=== PATIENT | male | born 1950 | race Caucasian/White ===

== ENCOUNTER 2016-11-10 08:44 | Outpatient (CLI) | payer MEDICARE, MEDICAID ==
[2016-11-10 10:11] LABS: #Eosinphils 0.3 thou/uL (0.0-0.7); #Lymphocytes 0.7 thou/uL (1.20-3.40); #Monocytes 0.4 thou/uL (0.11-0.59); #Neutrophils 2.7 thou/uL (1.40-6.50); %Basophils 0.6 % (0.0-1.0); %Eosinophils 6.3 % (0.0-10.0); %Lymphocytes 17.1 % (21.0-51.0); %Monocytes 9.6 % (0.0-10.0); Hematocrit 37.8 % (42.0-52.0); Mean Platelet Volume 7.1 fL (7.4-10.4); Red Blood Cell (RBC) Count 3.59 mill/uL (4.70-6.10)
[2016-11-10 10:27] LABS: Anion Gap 14 mmol/L (10-20); BUN (Urea Nitrogen) 7 mg/dL (8.4-25.7); Calc. Creatinine Clearance 0 mL/min (70-130); Calcium 9.5 mg/dL (7.8-10.44); Carbon Dioxide 27 mmol/L (23-31); Chloride 105 mmol/L (98-107); Estimated GFR-MDRD Greater than 90
== END 2016-11-10 08:45 | disposition home or self-care (01) ==
LOC: LABBT 08:44
PROVIDERS: ATTEND Surgery
DX: Z01.812 Encounter for preprocedural laboratory examination (principal); C50.922 Malignant neoplasm of unspecified site of left male breast
CPT/HCPCS: 80048; 85025

== ENCOUNTER 2016-11-17 11:18 | Inpatient (IN) | payer MEDICARE, MEDICAID ==
[2016-11-10 09:00] VITALS: BMI 36.7
[2016-11-17] MEDS ORDERED: Fentanyl 100 MCG/2 ML VIAL ONE ×2 (13:03→16:15)
[2016-11-17] MEDS ORDERED: Promethazine HCl 25 MG/ML VIAL ONE (13:03)
[2016-11-17] MEDS ORDERED: Propofol 200 MG/20 ML VIAL ONE (13:10)
[2016-11-17] MEDS ORDERED: Glycopyrrolate 0.2 MG/ML 5 ML SYRINGE ONE (13:10)
[2016-11-17] MEDS ORDERED: Ketorolac Tromethamine 30 MG/ML VIAL ONE (13:10)
[2016-11-17] MEDS ORDERED: Ondansetron HCl/PF 4 MG/2 ML Vial ONE (13:10)
[2016-11-17] MEDS ORDERED: ePHEDrine/0.9% NaCl/PF SYRINGE 50 mg/10 ml ONE (13:10)
[2016-11-17] MEDS ORDERED: Morphine Sulfate 2 MG/ML SYRINGE SLOW IVP PRN ×2 (15:24→16:47)
[2016-11-17] MEDS ORDERED: Promethazine HCl 25 MG/ML VIAL SLOW IVP PRN ×2 (15:24)
[2016-11-17] MEDS ORDERED: Promethazine HCl 25 MG/ML VIAL IM PRN ×2 (15:24→16:47)
[2016-11-17] MEDS ORDERED: Ondansetron HCl/PF 4 MG/2 ML Vial IVP PRN ×3 (15:24→16:47)
[2016-11-17] MEDS ORDERED: HYDROmorphone 2 MG/ML VIAL SLOW IVP PRN (15:24)
--- NOTE | 2016-11-17 15:53 | OP ---
DATE OF PROCEDURE: 11/17/2016 PREOPERATIVE DIAGNOSES: 1. Left breast cancer inflammatory, status post neoadjuvant chemotherapy. 2. History of BRCA positive. POSTOPERATIVE DIAGNOSES: 1. Left breast cancer inflammatory, status post neoadjuvant chemotherapy. 2. History of BRCA positive. PROCEDURES: 1. Bilateral simple mastectomy. 2. Left axillary node dissection. SURGEON: Zaid Shaw M.D. ANESTHESIA: General. ESTIMATED BLOOD LOSS: Minimal. COMPLICATIONS: None. SPECIMEN: Left and right breasts marked with two short superior, one long lateral, left breast sent with axillary contents. TECHNIQUE: The patient was taken to the operating room and placed supine on the table. After gener al anesthetic was obtained, his abdomen, chest, and neck were shaved, and draped in a sterile fashio n. An elliptical incision was used to ellipse out the nipple areolar complex in the right upper su[address] st. Flaps were raised laterally to the latissimus dorsi, medially to the sternum, inferior to the i nframammary fold and superior to the level near the clavicle. The breast is taken off the chest wal l including the pectoralis fascia. Meticulous hemostasis was obtained. The wound was irrigated. A 19 round drain brought out through stab incisions, sewn in place using 2-0 silk. The wound was claudia sed using 3-0 Vicryl interrupted, 4-0 Monocryl, and Dermabond. Next, an elliptical incision was use d to ellipse out the right nipple to include the area of previous skin involvement. Flaps were agai n raised to the clavicle, sternum, latissimus dorsi and inframammary fold and the breast tissue is t aken off the chest wall including the pectoralis fascia. This specimen is marked. This incision marina s extended laterally slightly and so the axillary dissection is performed. Clavipectoral fascia was entered over the top of left axillary vein, but no name vein was taken using the LigaSure. The lexy g thoracic and thoracodorsal nerves were found and excluded from the dissection. Level 1 and 2 lymp h nodes were removed with the left breast specimen. This specimen is marked and sent to path as wel l. The left chest cavity is irrigated using sterile solution. No ongoing bleeding. A #[address] akila brought out through a stab incision and sewn in place using silk suture. The wound was closed u sing 3-0 Vicryl, running 4-0 Monocryl, and Dermabond. There was a small lesion just medial to the l eft chest wall incision that was ellipsed out and sent to pass separately a skin lesion. This wound was closed using 4-0 Monocryl and Dermabond as well. The patient was en route to recovery in stabl e condition. All instrument counts, needle counts, and lap counts were correct.
[2016-11-17] MEDS ORDERED: Dextrose 50% Abboject 50 ML SYRINGE SLOW IVP PRN (16:47)
[2016-11-17] MEDS ORDERED: Dextrose 5% in Water 1,000 ML IV PRN (16:47)
[2016-11-17] MEDS ORDERED: HYDROcodone/Acetaminophen 10/325 mg Tablet PO PRN (16:47)
[2016-11-17] MEDS: Sodium Chloride 0.9% 1,000 ML IV SCH (17:24)
[2016-11-17] MEDS: HYDROcodone/Acetaminophen 10/325 mg Tablet PO PRN ×2 (18:17→23:59)
[2016-11-17] MEDS: Famotidine 20 MG TAB PO SCH (20:02)
[2016-11-17] MEDS ORDERED: FLU VACC TS2017-18 (>65YR) 0.5 ML SYRINGE IM ONE (21:00)
[2016-11-18] MEDS: Sodium Chloride 0.9% 1,000 ML IV SCH (04:51)
[2016-11-18] MEDS: Famotidine 20 MG TAB PO SCH (08:15)
[2016-11-18 12:07] VITALS: BP 122/70; TEMP 98.4
== END 2016-11-18 12:05 | disposition home or self-care (01) | DRG 581 ==
LOC: SDC 11:18 → SURG A 15:05
PROVIDERS: ADMIT Surgery; ATTEND Surgery
PROC: 07B60ZZ Excision of Left Axillary Lymphatic, Open Approach (ICD-10-PCS; principal; 2016-11-17)
PROC: 0HTV0ZZ Resection of Bilateral Breast, Open Approach (ICD-10-PCS; 2016-11-17)
DX: C50.922 Malignant neoplasm of unspecified site of left male breast (principal); Z92.21 Personal history of antineoplastic chemotherapy
CPT/HCPCS: 88305; 88307; 88309; 90471; 90682; G0008; J1170; J1885; J2405; J2550; J2704; J3010; Q2036

== ENCOUNTER 2017-05-12 10:32 | Inpatient (IN) | payer MEDICARE, MEDICAID ==
[2017-05-12] MEDS ORDERED: Adenosine 6 MG/2 ML VIAL ONE (10:43)
[2017-05-12 11:09] LABS: Hemoglobin 16.1 g/dL (14.0-18.0); Mean Corpuscular HGB CONC 34.8 g/dL (32.0-36.0); Mean Platelet Volume 7.3 fL (7.4-10.4); Platelet Count 70 thou/uL (130-400); RBC Distribution Width 14.7 % (11.5-14.5); White Blood Cell (WBC) Count 5.2 thou/uL (4.8-10.8)
[2017-05-12 11:28] LABS: ALT (SGPT) 31 U/L (8-55); AST (SGOT) 43 U/L (5-34); Albumin 3.8 g/dL (3.4-4.8); Alkaline Phosphatase 110 U/L (40-150); Anion Gap 15 mmol/L (10-20); BUN (Urea Nitrogen) 10 mg/dL (8.4-25.7); Bilirubin, Total 1.3 mg/dL (0.2-1.2); Calc. Creatinine Clearance 0 mL/min (70-130); Calcium 9.8 mg/dL (7.8-10.44); Carbon Dioxide 24 mmol/L (23-31); Chloride 101 mmol/L (98-107); Estimated GFR-MDRD Greater than 90; Globulin 4.1 g/dL (2.4-3.5); Glucose 106 mg/dL (80-115); Potassium 3.8 mmol/L (3.5-5.1); Protein, Total 7.9 g/dL (5.8-8.1); Sodium 136 mmol/L (136-145)
[2017-05-12 11:33] LABS: CKMB 4.2 ng/mL (0-6.6); Troponin I 0.032 ng/mL (< 0.028)
[2017-05-12 11:34] LABS: Band 3 % (5-11); Eosinophils 1 % (0-10); Lymphocytes 16 % (21-51); MDiff Complete? YES; Monocytes 6 % (0-10); Neutrophil 70 % (42-75); Reactive Lymphocytes 4 % (0-10)
[2017-05-12 12:19] LABS: Bilirubin Negative (Negative); Blood, Urine Negative (Negative); Clarity CLEAR (Clear); Glucose, Urine (Dipstick) Negative (Negative); Leukocyte Trace (Negative); Nitrite Negative (Negative); Protein, Urine (Dipstick) Negative (Neg-Trace); Specific Gravity, Urine 1.009 (1.002-1.036); Urobilinogen 0.2 mg/dL (0.2-1.0)
--- NOTE | 2017-05-12 12:39 | RAD ---
PORTABLE CHEST ONE VIEW: Date: 05-12-17 Time: 11:47 a.m. History: Palpitations. FINDINGS: Comparison made with exam dated 08-27-16. Right sided port-a-cath remains in place. The heart size is stable. The lungs are expanded without fo billie areas of consolidation, pneumothorax, or pleural effusions. There is no evidence of elkin pulmona ry edema. IMPRESSION: No radiographic evidence of acute cardiopulmonary process. POS: C
[2017-05-12 12:41] LABS: Bacteria/HPF None Seen HPF (None Seen); Hyaline Casts/LPF NONE SEEN LPF (0-3 Hyaline); RBC/HPF 0-3 HPF (0-3); Squamous Epithelial 0-3 HPF (0-3); WBC/HPF 0-3 HPF (0-3)
[2017-05-12] MEDS ORDERED: Acetaminophen 325 MG TAB PO PRN (13:07)
[2017-05-12] MEDS ORDERED: Bisacodyl 5 MG TAB PO PRN ×2 (13:07)
[2017-05-12] MEDS ORDERED: traMADol HCl 50 MG TAB PO PRN (13:07)
[2017-05-12] MEDS ORDERED: Mag-Al 1200 mg/1200 mg/30 ML UDCUP PO PRN (13:07)
[2017-05-12] MEDS ORDERED: Loratadine 10 MG TAB PO PRN (13:07)
[2017-05-12] MEDS ORDERED: Calcium Carbonate 500 MG ChewTAB PO PRN (13:07)
[2017-05-12] MEDS ORDERED: Senokot 8.6 MG TAB PO PRN ×2 (13:07)
[2017-05-12] MEDS ORDERED: Nitroglycerin 0.4 MG TAB (25 Tab Bottle) SL PRN (13:07)
[2017-05-12] MEDS ORDERED: Diabetic Tussin 200 MG/10 ML UDCUP PO PRN (13:07)
[2017-05-12] MEDS ORDERED: Ondansetron HCl/PF 4 MG/2 ML Vial IVP PRN (13:07)
[2017-05-12] MEDS ORDERED: hydrALAZINE 20 MG/ML VIAL SLOW IVP PRN (13:07)
[2017-05-12] MEDS ORDERED: Lorazepam 1 MG TAB PO PRN (13:07)
[2017-05-12] MEDS ORDERED: Benzonatate 100 MG CAP PO PRN (13:07)
[2017-05-12] MEDS ORDERED: cloNIDine 0.1 MG TAB PO PRN (13:07)
[2017-05-12 14:18] LABS: Troponin I 0.037 ng/mL (< 0.028)
[2017-05-12 15:06] VITALS: BMI 35.9
--- NOTE | 2017-05-12 16:09 | HP ---
DATE OF ADMISSION: 05/12/2017 PRIMARY CARE PHYSICIAN: PEE Bai at [facility]. CHIEF COMPLAINT: Palpitation. HISTORY OF PRESENTING ILLNESS: Mr. Sanchez is a very pleasant 67-year-old gentleman with history of male breast cancer, undergoing radiation and who has finished surgery and chemotherapy last year, pr esented to the emergency room with above-mentioned complaint. History is mainly obtained by the jelly ent himself and electronic medical records have been reviewed. According to Mr. Sanchez, he has history of atrial fibrillation and has undergone ablation 8-9 years ago in [place] by Dr. Gli. He was seen by Dr. Jya in the past for this. Since then, maria isabel denney has really had no troubles, but then brought in, he did say that he has been having on and off symp toms of palpitations. Sometimes he would be sitting on the couch watching TV and feels that his whol e body is moving with a heartbeat. These symptoms were short lasting and sometimes they are associat ed with some shortness of breath. He is undergoing radiation and actually today was his last radiation treatment of 30 treatments. At the time he finish his radiation treatment, the nurse noted that his heart rate was in the 190s and maria isabel denney was sent to the emergency room by Dr. Toth. Upon presentation to the emergency room, his heart rate was found to be 100 in sinus rhythm. He was given one dose of adenosine without much benefit except for slowing of the heart and later he also re ceived one IV bolus of amiodarone. This helped to control his heart rate and now his heart rate is n ormal in the 70s and in sinus rhythm. EKG did not show any arrhythmias. His chest x-ray is unremark able. He had borderline elevation of cardiac enzymes, most likely due to demand ischemia from tachyc ardia. Now, he is being admitted for further evaluation and care. He does report palpitations and s ome shortness of breath earlier today. He denies otherwise any recent illnesses. No orthopnea, PND, chest pain, shortness of breath, cough, fever, or chills. He denies any GI or symptoms. PAST MEDICAL HISTORY: 1. History of male breast cancer, status post surgery with lymph node dissection; chemotherapy and t gerry he finishes treatment of radiation therapy. 2. History of atrial fibrillation, status post ablation multiple years ago. PAST SURGICAL HISTORY: Small intestinal tumor removal in 2007, atrial fibrillation ablation in 1999. FAMILY HISTORY: Father of unknown causes. Mother of unknown causes. His daughter 3 years ago of ovarian cancer. One of his brothers last year with advanced liver cancer. He denies any family history of any premature coronary artery disease or stroke. SOCIAL HISTORY: He chews tobacco and drinks about 2-3 beers per day. No history of drug abuse. ALLERGIES: No known medication allergies. CURRENT MEDICATIONS: He is on oral chemotherapy medication which he does not remember. According to the records, he is on anastrozole and Arimidex. REVIEW OF SYSTEMS: The following complete review of systems was negative, unless otherwise mentioned in the HPI or below: Constitutional: Weight loss or gain, ability to conduct usual activities. Skin: Rash, itching. Eyes: Double vision, pain. ENT/Mouth: Nose bleeding, neck stiffness, pain, tenderness. Cardiovascular: Palpitations, dyspnea on exertion, orthopnea. Respiratory: Shortness of breath, wheezing, cough, hemoptysis, fever or night sweats. Gastrointestinal: Poor appetite, abdominal pain, heartburn, nausea, vomiting, constipation, or diarr hea. Genitourinary: Urgency, frequency, dysuria, nocturia. Musculoskeletal: Pain, swelling. Neurologic/Psychiatric: Anxiety, depression. Allergy/Immunologic: Skin rash, bleeding tendency. It is negative except for those mentioned in the history and physical. LABORATORY DATA AND IMAGING DATA: CBC shows WBCs 5.2, hemoglobin 16.1, platelet count of 70. Serum chemistries show bilirubin 1.3, AST 43, otherwise unremarkable. Cardiac enzymes, troponin 0.032 with repeat troponin 0.037. Urinalysis shows trace leukocyte esterase. Chest x-ray by my review has no evidence to suggest pulmonary effusion, edema or infiltrate. Twelve lead EKG by my review shows sinu s tachycardia with frequent PACs at 93 beats per minute. This is EKG #3 done in the emergency room. Upon presentation, he had sinus tachycardia with heart rate of 183. This was before the adenosine w as given. PHYSICAL EXAMINATION: VITAL SIGNS: Temperature 97.7, pulse 77, respirations 16, saturating 96% on room air, blood pressure 124/75. GENERAL: No acute distress, awake, alert, oriented x3. He appears somewhat disheveled. HEENT: Mucous membrane is moist and pink. No oropharyngeal exudate or erythema. Head is normocepha lic, atraumatic. Pupils are equal and reactive to light and accommodation. Extraocular movement is intact. NECK: Supple without any lymphadenopathy, JVD or bruit. CHEST: Clear to auscultation without any wheezing, rales or rhonchi. Rhythm is regular without any murmur, rubs or gallops. He has radiation burn on the left anterior chest without any skin peeling. ABDOMEN: Obese, soft, nontender, nondistended, positive bowel sounds. EXTREMITIES: Free of any pitting edema, but he has chronic venous stasis changes with erythema in th e lower extremities which do appear to have some nonpitting edema. SKIN: Free of any rashes or bruises. Feel warm and dry to touch. NEUROLOGIC: Examination is nonfocal. PSYCHIATRIC: Normal affect. IMPRESSION AND PLAN: 1. Sinus arrhythmia. The patient has had improved control of his heart rate after adenosine and ami odarone. Given his history of atrial fibrillation, we will consult Cardiology for further recommenda tions. He may need event monitor for outpatient setting. For now, we will start him on low dose bet a bradley and monitor his response. Perform an echocardiogram to rule out cardiomyopathy because of radiation and chemotherapy. His last echocardiogram was done in 07/2016, which showed EF of 55%-60%. Currently, he is hemodynamically stable. At this time, he has clinically very less likelihood of pulmonary embolism, but given his history of breast cancer, we will obtain a D-dimer. 2. History of breast cancer, status post chemotherapy, radiation and surgery. Continue with david anand. At this time, he will continue to follow with outpatient Dr. Blanca. 3. History of atrial fibrillation, requiring ablation in the past. 4. Elevated troponin, likely secondary to demand ischemia. We will continue to trend serial cardiac enzymes and check echocardiogram. 5. Deep venous thrombosis and gastrointestinal prophylaxis. 6. Code status: FULL CODE. Discussed with the patient. DISPOSITION: Mr. Sanchez is currently being admitted for sinus arrhythmia with some palpitations an d indeterminate troponin. He is hemodynamically stable and his heart rate has improved. He will be admitted under observation status for now. Further management will depend upon his clinical course.
[2017-05-12 17:44] LABS: Troponin I 0.029 ng/mL (< 0.028)
[2017-05-12] MEDS: Metoprolol Tartrate 25 MG TAB PO SCH (21:47)
--- NOTE | 2017-05-12 23:35 | CON ---
DATE OF CONSULTATION: 05/12/2017 HISTORY OF PRESENT ILLNESS: Lance Sanchez is a 67-year-old white male admitted with tachycardia. He has previously had atrial fibrillation and in 06/2009 underwent electrical cardioversion at [facility]. Two weeks later when he was seen for followup, he was back in atrial fibrilla tion with rate of 200 per minute and underwent a second cardioversion. In 01/2010, he had shortness of breath and again elevated heart rate and underwent a third cardioversion. He was placed on medications, but once the prescriptions ran out he did not get them refilled. He di d not go back for followup. He was hospitalized here at [place] in 01/2010 with chest discomfort and negative cardiac enzymes. He was then admitted in 04/2011 with complaints of 2 days of pinching discomfort in the left side of his chest. The pain was continuously present for at least 40 hours pr ior to admission. He had palpable tenderness on the left side of his chest. Cardiac enzymes were ne gative. He underwent IV Lexiscan Cardiolite testing, which revealed no evidence of ischemia. He then started to have episodes of rapid heartbeat on the monitor, which appear to be atrial flutter . He was placed on IV Cardizem to control the rate. Echocardiogram during that admission revealed e jection fraction of 50-55% with left atrial enlargement, mild mitral and mild tricuspid regurgitation . He did develop thrombocytopenia with Lovenox and just continued to be anticoagulated with Coumadin and also he was discharged. He was seen by Dr. Gil ultimately in the [place] and underwent ablation of his atrial fibrillation by Dr. Gil. He apparently has not had any significant a rrhythmias until recently. He was discovered to have left breast cancer and underwent bilateral mastectomy and left axillary nod e dissection in 11/2016. Since that time, he has undergone chemotherapy as well as radiation therapy . Over the last 2 months he has noted episodes of rapid heartbeat. These usually occur at rest and last for 5-10 minutes. Today, he underwent his last radiation treatment of 30 treatments. It was no juana that his heart rate was in the 190s and he was sent to the emergency room. He apparently was giv en adenosine, followed by amiodarone. He converted to sinus rhythm. He denies any chest discomfort when he has these episodes just feeling of his heart beating very rapidly. PAST MEDICAL HISTORY: Male breast cancer status post bilateral mastectomy and left axillary lymph no de dissection, history of atrial fibrillation, status post radiofrequency ablation in [place]. OPERATIONS: Bilateral mastectomy, small intestinal tumor removal in 2007. SOCIAL HISTORY: Chews tobacco and has 2-3 beers per day. FAMILY HISTORY: Negative for coronary artery disease. REVIEW OF SYSTEMS: Twelve point review of systems otherwise unremarkable. PHYSICAL EXAMINATION: VITAL SIGNS: Blood pressure 124/75, pulse 77. HEENT: PERRL. NECK: Supple. CHEST: Clear. CARDIAC: S1, S2 normal, without any S3, S4 or murmurs. Carotid upstroke was normal without any brui ts. ABDOMEN: Normal bowel sounds without tenderness, organomegaly. The abdomen is obese. EXTREMITIES: Revealed no clubbing, cyanosis or edema. NEUROLOGIC: Grossly intact. SKIN: Warm and dry. LABORATORY: Rhythm strips when he presented show regular rhythm with rate of approximately 160 to 17 0. It looks like with adenosine that he slowed, then probably converted. Hemoglobin 16.1, hematocri t 46.3, white count 4200, platelets 70,000. D-dimer 1.02. Sodium 136, potassium 3.8, chloride 101, carbon dioxide 24, BUN 10, creatinine 0.82. Troponin I is up to 0.037. Chest x-ray is unremarkable. IMPRESSION: 1. Supraventricular tachycardia. It sounds as if he is becoming more symptomatic with this over the last 2 months. 2. Status post radiofrequency ablation of atrial fibrillation 6 years ago. 3. History of noncompliance with medication. 4. History of noncardiac chest pain in the past. 5. ETOH abuse. 6. History of elevated cholesterol. 7. Obesity. 8. Tobacco chewer. 9. Thrombocytopenia, probably secondary to the chemotherapy and radiation therapy. RECOMMENDATIONS: The patient will be kept n.p.o. for evaluation by Electrophysiology in the morning and consideration of radiofrequency ablation of his supraventricular tachycardia. Echocardiogram patti l be performed to reassess left ventricular function.
[2017-05-13 06:08] LABS: #Eosinphils 0.1 thou/uL (0.0-0.7); #Lymphocytes 0.5 thou/uL (1.20-3.40); #Monocytes 0.4 thou/uL (0.11-0.59); #Neutrophils 1.7 thou/uL (1.40-6.50); %Basophils 0.2 % (0.0-1.0); %Eosinophils 4.4 % (0.0-10.0); %Lymphocytes 19.8 % (21.0-51.0); %Monocytes 14.3 % (0.0-10.0); %Neutrophils 61.3 % (42.0-75.0); Hemoglobin 14.1 g/dL (14.0-18.0); Mean Corpuscular HGB CONC 35.1 g/dL (32.0-36.0); Mean Corpuscular Hemoglobin 35.4 pg (27.0-31.0); Mean Platelet Volume 7.3 fL (7.4-10.4); Platelet Count 38 thou/uL (130-400); RBC Distribution Width 14.4 % (11.5-14.5); Red Blood Cell (RBC) Count 3.99 mill/uL (4.70-6.10); White Blood Cell (WBC) Count 2.7 thou/uL (4.8-10.8)
[2017-05-13 06:14] LABS: Anion Gap 10 mmol/L (10-20); BUN (Urea Nitrogen) 8 mg/dL (8.4-25.7); Calc. Creatinine Clearance 160 mL/min (70-130); Calcium 9.2 mg/dL (7.8-10.44); Carbon Dioxide 28 mmol/L (23-31); Chloride 102 mmol/L (98-107); Estimated GFR-MDRD Greater than 90; Glucose 121 mg/dL (80-115); Potassium 4.1 mmol/L (3.5-5.1); Sodium 136 mmol/L (136-145)
[2017-05-13] MEDS: Anastrozole 1 MG TAB PO SCH (08:29)
[2017-05-13] MEDS: Metoprolol Tartrate 25 MG TAB PO SCH ×2 (08:29→21:59)
[2017-05-13] MEDS ORDERED: Enoxaparin Sodium 40 MG/0.4 ML SYRINGE SC SCH (09:00)
--- NOTE | 2017-05-13 14:08 | PDOC.PN ---
- Subjective Encounter Start Date: 05/13/17 Encounter Start Time: 14:07 Subjective: feels good. no CP/palpitations/SOB - Objective MAR Reviewed: Yes Vital Signs & Weight: Vital Signs (12 hours) Temp Pulse Resp BP Pulse Ox 05/13/17 12:03 98.5 F 64 16 133/78 97 Result Diagrams: 05/13/17 05:25 05/13/17 05:25 Additional Labs: Laboratory Tests 05/12/17 05/12/17 05/12/17 11:00 13:49 17:00 Troponin I 0.032 H 0.037 H 0.029 H Laboratory Tests 05/12/17 10:46 D-Dimer 1.02 H Phys Exam - Physical Examination Constitutional: NAD HEENT: PERRLA, moist MMs, sclera anicteric, oral pharynx no lesions Neck: no nodes, no JVD, supple, full ROM Respiratory: no wheezing, no rales, no rhonchi, clear to auscultation bilateral Cardiovascular: RRR, no significant murmur Gastrointestinal: soft, non-tender, no distention, positive bowel sounds Musculoskeletal: no edema, pulses present Neurological: non-focal, normal sensation, moves all 4 limbs Psychiatric: normal affect, A&O x 3 Skin: no rash Dx/Plan (1) Sinus arrhythmia Code(s): I49.9 - CARDIAC ARRHYTHMIA, UNSPECIFIED Status: Acute (2) Thrombocytopenia Code(s): D69.6 - THROMBOCYTOPENIA, UNSPECIFIED Status: Acute (3) Troponin level elevated Code(s): R74.8 - ABNORMAL LEVELS OF OTHER SERUM ENZYMES Status: Acute Comment: joyley demand ischemia (4) Breast cancer in male Code(s): C50.929 - MALIGNANT NEOPLASM OF UNSP SITE OF UNSPECIFIED MALE BREAST Status: Chronic Qualifiers: Laterality: bilateral Comment: s/p ChemoRx,XRT finishing 05/11/17,mastecetomy (5) HTN (hypertension) Code(s): I10 - ESSENTIAL (PRIMARY) HYPERTENSION Status: Acute (6) Obesity (BMI 30-39.9) Code(s): E66.9 - OBESITY, UNSPECIFIED Status: Acute - Plan DVT proph w/SCDs DC lovenox as platelet counts dropped.SCD.ambulatory -: NSR for now. given H/O recurrent a-fib/flutter,EP consulted -: cardiology following.appreciate input -: started on BB w improved BP & controlled HR -: not safe for Dc yet d/t arryhtmia recurrance & need for EP study * .will change to inpatient * am labs * D Dimer high but no clinical S/S to suggest PE/DVT Review of Systems - Review of Systems Constitutional: negative: fever, chills, sweats, weakness, malaise, other ENT: negative: Ear Pain, Ear Discharge, Nose Pain, Nose Discharge, Nose Congestion, Mouth Pain, Mouth Swelling, Throat Pain, Throat Swelling, Other Respiratory: negative: Cough, Dry, Shortness of Breath, Hemoptysis, SOB with Excertion, Pleuritic Pain, Sputum, Wheezing Cardiovascular: negative: chest pain, palpitations, orthopnea, paroxysmal nocturnal dyspnea, edema, light headedness, other Gastrointestinal: negative: Nausea, Vomiting, Abdominal Pain, Diarrhea, Constipation, Melena, Hematochezia, Other Genitourinary: negative: Dysuria, Frequency, Incontinence, Hematuria, Retention , Other Musculoskeletal: negative: Neck Pain, Shoulder Pain, Arm Pain, Back Pain, Hand Pain, Leg Pain, Foot Pain, Other Skin: negative: Rash, Lesions, Jostin, Bruising, Other Neurological: negative: Weakness, Numbness, Incoordination, Change in Speech, Confusion, Seizures, Other - Medications/Allergies Allergies/Adverse Reactions: Allergies Allergy/AdvReac Type Severity Reaction Status Date / Time No Known Allergies Allergy Verified 05/12/17 15:13 Medications: Current Medications Acetaminophen (Tylenol) 650 mg PO Q4H PRN PRN Reason: Headache/Fever or Pain Al Hydroxide/Mg Hydroxide (Maalox) 30 ml PO Q6H PRN PRN Reason: Heartburn or Indigestion Anastrozole (Arimidex) 1 mg PO DAILY [facility] Last Admin: 05/13/17 08:29 Dose: 1 mg Benzonatate (Tessalon) 100 mg PO Q4H PRN PRN Reason: Cough Bisacodyl (Dulcolax) 10 mg PO DAILYPRN PRN PRN Reason: Constipation Calcium Carbonate (Tums) 1,000 mg PO Q4H PRN PRN Reason: Heartburn or Indigestion Clonidine (Catapres) 0.1 mg PO Q4H PRN PRN Reason: Systolic BP > 160 Guaifenesin (Robitussin Sf) 200 mg PO Q4H PRN PRN Reason: Cough Hydralazine HCl (Apresoline) 10 mg SLOW IVP Q4H PRN PRN Reason: Systolic BP > 170 Loratadine (Claritin) 10 mg PO DAILYPRN PRN PRN Reason: Sinus Symptoms Lorazepam (Ativan) 1 mg PO Q4H PRN PRN Reason: Anxiety/Agitation Metoprolol Tartrate (Lopressor) 12.5 mg PO BID [facility] Last Admin: 05/13/17 08:29 Dose: 12.5 mg Nitroglycerin (Nitrostat) 0.4 mg SL Q5MIN PRN PRN Reason: Chest Pain Ondansetron HCl (Zofran) 4 mg IVP Q6H PRN PRN Reason: Nausea/Vomiting Senna (Senokot) 2 tab PO HSPRN PRN PRN Reason: Constipation Sodium Chloride (Flush - Normal Saline) 10 ml IVF Q12HR [facility] Last Admin: 05/13/17 08:31 Dose: 10 ml Sodium Chloride (Flush - Normal Saline) 10 ml IVF PRN PRN PRN Reason: Saline Flush Tramadol HCl (Ultram) 50 mg PO Q4H PRN PRN Reason: Moderate Pain (4-6)
[2017-05-13] MEDS: Dronedarone HCl 400 MG TAB PO SCH (21:59)
[2017-05-14 04:56] LABS: #Eosinphils 0.1 thou/uL (0.0-0.7); #Lymphocytes 0.5 thou/uL (1.20-3.40); #Monocytes 0.3 thou/uL (0.11-0.59); #Neutrophils 1.6 thou/uL (1.40-6.50); %Basophils 0.3 % (0.0-1.0); %Eosinophils 4.4 % (0.0-10.0); %Lymphocytes 18.9 % (21.0-51.0); %Monocytes 12.5 % (0.0-10.0); %Neutrophils 63.9 % (42.0-75.0); Hemoglobin 13.6 g/dL (14.0-18.0); Mean Corpuscular HGB CONC 34.2 g/dL (32.0-36.0); Mean Corpuscular Hemoglobin 34.4 pg (27.0-31.0); Platelet Count 41 thou/uL (130-400); RBC Distribution Width 14.4 % (11.5-14.5); Red Blood Cell (RBC) Count 3.95 mill/uL (4.70-6.10); White Blood Cell (WBC) Count 2.6 thou/uL (4.8-10.8)
[2017-05-14 05:10] LABS: Anion Gap 13 mmol/L (10-20); BUN (Urea Nitrogen) 10 mg/dL (8.4-25.7); Calc. Creatinine Clearance 166 mL/min (70-130); Calcium 8.9 mg/dL (7.8-10.44); Carbon Dioxide 22 mmol/L (23-31); Chloride 106 mmol/L (98-107); Estimated GFR-MDRD Greater than 90; Glucose 131 mg/dL (80-115); Potassium 3.8 mmol/L (3.5-5.1); Sodium 137 mmol/L (136-145)
[2017-05-14] MEDS ORDERED: Cyanocobalamin (Vitamin B-12) 1,000 MCG TAB PO SCH (09:00)
[2017-05-14] MEDS ORDERED: Folic Acid 1 MG TAB PO SCH (09:00)
[2017-05-14 09:02] VITALS: TEMP 98.2
[2017-05-14] MEDS: Dronedarone HCl 400 MG TAB PO SCH (09:03)
[2017-05-14] MEDS: Anastrozole 1 MG TAB PO SCH (09:03)
[2017-05-14] MEDS: Metoprolol Tartrate 25 MG TAB PO SCH (09:03)
--- NOTE | 2017-05-14 10:09 | PDOC.PN ---
- Subjective Encounter Start Date: 05/14/17 Encounter Start Time: 07:10 -: old records requested/rev Patient seen and examined. No new complaints. No overnight events - Objective MAR Reviewed: Yes Vital Signs & Weight: Vital Signs (12 hours) Temp Pulse Resp BP BP Pulse Ox 05/14/17 09:00 98.2 F 66 18 123/65 97 05/14/17 04:00 99.1 F 72 20 129/69 94 L 05/13/17 23:52 98.3 F 63 20 128/71 98 Weight Weight 268 lb 12.8 oz I&O: 05/13/17 05/14/17 05/15/17 06:59 06:59 06:59 Intake Total 1060 Output Total 650 Balance 410 Result Diagrams: 05/14/17 03:53 05/14/17 03:53 EKG Reviewed by me: Yes Phys Exam - Physical Examination Constitutional: NAD HEENT: PERRLA, moist MMs, sclera anicteric Neck: no JVD, supple Respiratory: no wheezing, no rales, no rhonchi Cardiovascular: RRR, no significant murmur, no rub Gastrointestinal: soft, non-tender, no distention, positive bowel sounds Musculoskeletal: no edema, pulses present Neurological: non-focal, normal sensation, moves all 4 limbs Psychiatric: normal affect, A&O x 3 Skin: no rash, normal turgor Dx/Plan (1) Sinus arrhythmia Code(s): I49.9 - CARDIAC ARRHYTHMIA, UNSPECIFIED Status: Acute (2) Thrombocytopenia Code(s): D69.6 - THROMBOCYTOPENIA, UNSPECIFIED Status: Acute (3) Troponin level elevated Code(s): R74.8 - ABNORMAL LEVELS OF OTHER SERUM ENZYMES Status: Acute Comment: likley demand ischemia (4) Breast cancer in male Code(s): C50.929 - MALIGNANT NEOPLASM OF UNSP SITE OF UNSPECIFIED MALE BREAST Status: Chronic Qualifiers: Laterality: bilateral Comment: s/p ChemoRx,XRT finishing 05/11/17,mastecetomy (5) HTN (hypertension) Code(s): I10 - ESSENTIAL (PRIMARY) HYPERTENSION Status: Chronic (6) Macrocytosis Code(s): D75.89 - OTHER SPECIFIED DISEASES OF BLOOD AND BLOOD-FORMING ORGANS Status: Chronic (7) Obesity (BMI 30-39.9) Code(s): E66.9 - OBESITY, UNSPECIFIED Status: Chronic - Plan cont current plan of care * pt wants to go home * add folic acid and vitamin B12 * continue multaq * will discharge if cardiology ok * medication reviewed as below * symptomatic treatment. Review of Systems - Review of Systems ENT: negative: Ear Pain, Ear Discharge, Nose Pain, Nose Discharge, Nose Congestion, Mouth Pain, Mouth Swelling, Throat Pain, Throat Swelling, Other Respiratory: negative: Cough, Dry, Shortness of Breath, Hemoptysis, SOB with Excertion, Pleuritic Pain, Sputum, Wheezing Cardiovascular: negative: chest pain, palpitations, orthopnea, paroxysmal nocturnal dyspnea, edema, light headedness, other Gastrointestinal: negative: Nausea, Vomiting, Abdominal Pain, Diarrhea, Constipation, Melena, Hematochezia, Other Genitourinary: negative: Dysuria, Frequency, Incontinence, Hematuria, Retention , Other Musculoskeletal: negative: Neck Pain, Shoulder Pain, Arm Pain, Back Pain, Hand Pain, Leg Pain, Foot Pain, Other Skin: negative: Rash, Lesions, Jostin, Bruising, Other - Medications/Allergies Allergies/Adverse Reactions: Allergies Allergy/AdvReac Type Severity Reaction Status Date / Time No Known Allergies Allergy Verified 05/12/17 15:13 Medications: Current Medications Acetaminophen (Tylenol) 650 mg PO Q4H PRN PRN Reason: Headache/Fever or Pain Al Hydroxide/Mg Hydroxide (Maalox) 30 ml PO Q6H PRN PRN Reason: Heartburn or Indigestion Anastrozole (Arimidex) 1 mg PO DAILY [facility] Last Admin: 05/14/17 09:03 Dose: 1 mg Benzonatate (Tessalon) 100 mg PO Q4H PRN PRN Reason: Cough Bisacodyl (Dulcolax) 10 mg PO DAILYPRN PRN PRN Reason: Constipation Calcium Carbonate (Tums) 1,000 mg PO Q4H PRN PRN Reason: Heartburn or Indigestion Clonidine (Catapres) 0.1 mg PO Q4H PRN PRN Reason: Systolic BP > 160 Cyanocobalamin (Vitamin B-12) 1,000 mcg PO DAILY [facility] Last Admin: 05/14/17 09:03 Dose: 1,000 mcg Dronedarone (Multaq) 400 mg PO BID [facility] Last Admin: 05/14/17 09:03 Dose: 400 mg Folic Acid (Folvite) 1 mg PO DAILY [facility] Last Admin: 05/14/17 09:03 Dose: 1 mg Guaifenesin (Robitussin Sf) 200 mg PO Q4H PRN PRN Reason: Cough Hydralazine HCl (Apresoline) 10 mg SLOW IVP Q4H PRN PRN Reason: Systolic BP > 170 Loratadine (Claritin) 10 mg PO DAILYPRN PRN PRN Reason: Sinus Symptoms Lorazepam (Ativan) 1 mg PO Q4H PRN PRN Reason: Anxiety/Agitation Metoprolol Tartrate (Lopressor) 12.5 mg PO BID [facility] Last Admin: 05/14/17 09:03 Dose: 12.5 mg Nitroglycerin (Nitrostat) 0.4 mg SL Q5MIN PRN PRN Reason: Chest Pain Ondansetron HCl (Zofran) 4 mg IVP Q6H PRN PRN Reason: Nausea/Vomiting Senna (Senokot) 2 tab PO HSPRN PRN PRN Reason: Constipation Sodium Chloride (Flush - Normal Saline) 10 ml IVF Q12HR [facility] Last Admin: 05/14/17 09:04 Dose: 10 ml Sodium Chloride (Flush - Normal Saline) 10 ml IVF PRN PRN PRN Reason: Saline Flush Tramadol HCl (Ultram) 50 mg PO Q4H PRN PRN Reason: Moderate Pain (4-6)
--- NOTE | 2017-05-14 11:35 | DIS ---
DATE OF ADMISSION: 05/13/2017 DATE OF DISCHARGE: 05/14/2017 PRIMARY CARE PHYSICIAN: [facility]. DISCHARGE DISPOSITION: Home. PRIMARY DISCHARGE DIAGNOSES: 1. Sinus arrhythmia (supraventricular arrhythmia). 2. Thrombocytopenia. 3. Demand ischemia of myocardium. SECONDARY DISCHARGE DIAGNOSES: Morbid obesity with body mass index 36, macrocytosis, hypertension, a nd history of breast cancer. PRIMARY PROCEDURE/OPERATION: None. RADIOLOGICAL INVESTIGATION: Chest x-ray. SIGNIFICANT LABORATORY DATA: WBC 2.6, hemoglobin 13.6, platelet 41, D-dimer 1.02. Sodium 137, creat inine 0.74. Troponin 0.029, AST 43, ALT 31, alkaline phosphatase is 110. Urinalysis unremarkable. DISCHARGE MEDICATIONS: Arimidex 1 mg p.o. daily, vitamin B12 1000 mcg p.o. daily, Multaq 400 mg p.o. b.i.d., folic acid 1 mg p.o. daily, and metoprolol 12.5 mg p.o. b.i.d. CONTRAINDICATIONS: None. CODE STATUS: FULL CODE. INPATIENT CONSULTANTS: Dr. Jay was consulted while in hospital. Dr. Jeremy Mejia was following while in hospital. TEST RESULTS PENDING ON DISCHARGE: None. ALLERGIES: No known drug allergy. DISCHARGE PLAN: Post hospital, the patient will follow up with [facility], Dr. Jay and Dr. Jeremy Mejia as instructed. HOSPITAL COURSE: A 67-year-old male with above-mentioned medical problem who was admitted by Dr. Jonh Wells. Please see her H and P for further detail. The patient was having supraventricular arrh ythmia. Dr. Jay was consulted. Dr. Jay recommended Electrophysiology consultation. Dr. Lalita lopez recommended to start Multaq therapy for his possible supraventricular arrhythmia. Patient also h ad demand ischemia of myocardium. Today, patient wanted to go home. Cardiology also cleared him for discharge. Overall, this patient is medically stable for discharge. The patient is seen and examined at bedside today. Please see my progress note from today for further detail.
--- NOTE | 2017-05-14 12:30 | CON ---
DATE OF CONSULTATION: 05/13/2017 ELECTROPHYSIOLOGY CONSULTATION REFERRING PHYSICIAN: Jayme Jay M.D. I am seeing Mr. Sanchez at our [facility] telemetry floor as an electrophysiology entry level sales consultant. His problems are: 1. Current admission with a narrow complex SVT, possibly atrial tachycardia. 2. History of ablation for atrial fibrillation in [place] by Dr. Gil about 6 years ago. 3. History of bilateral mastectomy, chemo and radiation therapy for male breast cancer, currently finishing last radiation therapy. 4. Thrombocytopenia possibly related to chemo and radiation therapy, platelet count 70,000. 5. History of normal LVEF 55%-60%, mild MR and TR on echo in 06/2016. 6. Coronary artery risk factors including obesity and history of tobacco chewing. 7. History of elevated cholesterol. 8. History of ETOH abuse. ALLERGIES: None. MEDICATIONS AT HOME: Included anastrozole or Arimidex. SUBJECTIVE: Mr. Sanchez is here after doing his last radiation therapy was noted to be tachycardic. He was sent to the ER and noted to have a narrow complex SVT. Initially adenosine was attempted, but was not successful, but eventually amiodarone was successful to terminate the arrhythmia. He is feeling good ever since. Even during the episodes, he was not markedly symptomatic even though his heart rate was up to 190. He does not pass out. No stroke-like symptoms, no neurological deficits, no fever, chills or cough. Rest of 14 system otherwise unremarkable. PAST MEDICAL HISTORY: As above. SOCIAL HISTORY: The patient has smoking, ETOH or drug abuse. FAMILY HISTORY: Noncontributory. OBJECTIVE: VITAL SIGNS: Blood pressure 133/78, heart rate 64, respiratory rate 16, temperature 98.5 degrees Fahrenheit. GENERAL: Alert, oriented man, in no apparent distress, BMI. NECK: Supple. Jugular veins not distended. CHEST: Coarse without crackles. CARDIOVASCULAR: Heart sounds are regular to rate and rhythm. No murmur or gallop. ABDOMEN: Benign. Bowel sounds positive. EXTREMITIES: Lower extremities without edema, clubbing or cyanosis. Pulses are adequate. NEUROLOGIC: Patient nonfocal. MUSCULOSKELETAL: No joint swelling or deformities. SKIN: Without rash. DATABASE: EKGs reviewed revealing an episode of SVT with narrow complex, previous seems to be closely following the QRS, although not complain merging with that. Initiation is not clearly documented. ASSESSMENT AND PLAN: Mr. Sanchez is a pleasant 67-year-old man with a history of atrial fibrillation and subsequent ablation [address] Gil. He has preserved LV function and also has breast cancer, requiring mastectomy, chemo and radiation therapy, he just completed. He was noted to be in narrow complex tachycardia, which appears to be atrial tachycardia less likely reciprocating AVNRT or AVRT especially in view of his history of prior atrial fibrillation ablation. For now, he is still recovery recuperating from his his cancer therapy. Also, his platelet count is low. We agreed to manage him medically. I am adding dronedarone to his medical regimen. Routine monitoring requested, chronic LFT testing also would be welcomed while on this medication. I will see this gentleman back as an outpatient for further discussion of future ablation therapy. MERY
[2017-05-14 13:47] VITALS: BP 117/65
== END 2017-05-14 13:47 | disposition home or self-care (01) | DRG 309 ==
LOC: ERS 10:32 → 2SW 12:25 → OBSVTOIN 05-13 11:25 → 2NO 05-13 15:34
PROVIDERS: ADMIT Family Medicine; ATTEND Family Medicine
DX: I49.9 Cardiac arrhythmia, unspecified (principal); I24.8 Other forms of acute ischemic heart disease; D69.59 Other secondary thrombocytopenia; E66.01 Morbid (severe) obesity due to excess calories; C50.921 Malignant neoplasm of unspecified site of right male breast; C50.922 Malignant neoplasm of unspecified site of left male breast; F17.220 Nicotine dependence, chewing tobacco, uncomplicated; Z68.36 Body mass index [BMI] 36.0-36.9, adult; I10 Essential (primary) hypertension; T45.1X5A Adverse effect of antineoplastic and immunosuppressive drugs, initial encounter; E78.5 Hyperlipidemia, unspecified
CPT/HCPCS: 36415; 71045; 77412; 80048; 80053; 81003; 81015; 82553; 84484; 85025; 85379; 93005; 93010; 93306; 94760; 96374; 96375; A4216; J0153; J0282; J1650

== ENCOUNTER 2017-12-07 09:10 | Outpatient (CLI) | payer MEDICARE, MEDICAID ==
--- NOTE | 2017-12-07 10:38 | RAD ---
CHEST 2 VIEWS: INDICATION: Cough. COMPARISON: Prior exam from 08/27/2016. FINDINGS: There is increased airspace opacity within the left upper lobe which is new. The right lung is clear . Right chest wall port is unchanged. Osseous structures are unchanged. IMPRESSION: New airspace opacity in the left upper lobe suspicious for infiltrate. Recommend radiographic follow up to resolution. POS: [facility]
== END 2017-12-07 09:11 | disposition home or self-care (01) ==
LOC: RAD-FRANK 09:10
PROVIDERS: ATTEND Nurse Practitioner Family
DX: R05 Cough (principal); R91.8 Other nonspecific abnormal finding of lung field
CPT/HCPCS: 71046

== ENCOUNTER 2017-12-08 14:53 | Outpatient (CLI) | payer MEDICARE, MEDICAID ==
--- NOTE | 2017-12-08 17:05 | RAD ---
CHEST 2 VIEWS: Date: 12/08/17 HISTORY: Pneumonia. COMPARISON: Radiograph dated 12/07/17. FINDINGS: Port catheter in place, tip in good position. Nodular density projects over the left upper lobe, misty lar to the comparison examination, although is new from 05/12/17. There does appear to also be a pulm onary nodule projecting over the left mid lung. IMPRESSION: Nodule projecting over the left upper lobe may be infiltrate, although is concerning for metastatic d isease given patient's port catheter. Nonemergent CT of the chest recommended. POS: [facility]
--- NOTE | 2017-12-08 17:09 | RAD ---
LUMBAR SPINE 3 VIEWS: Date: 12/08/17 HISTORY: Low back pain. COMPARISON: None. FINDINGS: No acute fracture or malalignment. There are bridging osteophytes throughout the lumbar spine with mi nimal degenerative narrowing from L3 to L4. There is moderate to severe degenerative disc space disea se at L4-5 and L5-S1. Extensive narrowing between the spinous processes throughout the lumbar spine. SI joints unremarkable. Phleboliths in the pelvis. IMPRESSION: 1. Moderate degenerative changes lower lumbar spine. 2. Diffuse idiopathic skeletal hyperostosis. 3. Advanced narrowing of the interspinous processes of lumbar spine can be a cause of patient's pain in back extension. POS: [facility]
== END 2017-12-08 14:54 | disposition home or self-care (01) ==
LOC: RAD-FRANK 14:53
PROVIDERS: ATTEND Nurse Practitioner Family
DX: J18.1 Lobar pneumonia, unspecified organism (principal); M54.5 Low back pain; M47.896 Other spondylosis, lumbar region; M48.16 Ankylosing hyperostosis [Forestier], lumbar region; M48.061 Spinal stenosis, lumbar region without neurogenic claudication
CPT/HCPCS: 71046; 72100

== ENCOUNTER 2017-12-11 09:52 | Outpatient (CLI) | payer MEDICARE, MEDICAID ==
[2017-12-11] MEDS ORDERED: Iopamidol 370 76% 100 ML VIAL ONE (10:36)
--- NOTE | 2017-12-11 14:32 | CT ---
CT OF THE CHEST WITH CONTRAST: 12/11/17 COMPARISON: 10/15/16. HISTORY: Breast cancer with double mastectomy. Evaluate for chest mass. Multiple contiguous axial images were obtained in a CT of the chest with contrast. Coronal reformats were performed. FINDINGS: There are numerous masses in the left upper lobe extending down to the lingula. The largest measures 2.3 cm in size. These are more prominent in the left apex. These were not seen on the prior examinati on. No pleural effusion is seen. Calcified granulomas are seen in the right lung. No new right sided pulmonary masses are identified. The heart is normal in size. Calcifications are seen in the coronary arteries. There are enlarged hil ar and mediastinal lymph nodes. The largest is seen in the subcarinal location measuring 3.4 cm in sh ort axis. The patient has a right sided Mediport with its tip in the superior vena cava. No axillary enlarged lymph nodes are seen. No enlarged lymph nodes are seen in the lower neck. There are hypodense new lesions scattered throughout the liver which were also not seen on the prior examination measuring up to 4.7 cm in size and are concerning for hepatic metastatic disease. There a re enlarged lymph nodes in the upper retroperitoneum measuring up to 2.3 cm in short axis. Degenerative changes are seen in the spine. No suspicious osseous lesions are identified. IMPRESSION: 1. There are multiple left sided pulmonary masses. This could represent a primary lung malignanc y or metastatic disease to the left lung. 2. There are enlarged mediastinal and retroperitoneal lymph nodes likely secondary to lymphadeno katarina secondary to metastatic disease. 3. There are new lesions in the liver concerning for hepatic metastases. POS: [facility]
== END 2017-12-11 09:53 | disposition home or self-care (01) ==
LOC: CT 09:52
DX: R22.2 Localized swelling, mass and lump, trunk (principal); R91.8 Other nonspecific abnormal finding of lung field; R59.0 Localized enlarged lymph nodes; K76.9 Liver disease, unspecified
CPT/HCPCS: 71260; 82565

== ENCOUNTER 2017-12-18 09:47 | Outpatient (CLI) | payer MEDICARE, MEDICAID ==
--- NOTE | 2017-12-18 12:23 | RAD ---
CERVICAL SPINE 4 VIEWS: HISTORY: Cervical pain. FINDINGS: Mild loss of central and anterior height at C4 and C5. C6 and C7 are not adequately evaluated on thi s exam. They are poorly seen even on the swimmer's view. Alignment is maintained through C6. Mild facet hypertrophy. Mild degenerative osteophytes anteriorly from the visualized cervical vertebrae. IMPRESSION: Mild wedging at C4 and C5. Posterior alignment is maintained. Degenerative changes are noted as alberto cribed. C6, C7, and T1 are not adequately evaluated. Consider further evaluation with CT cervical s pine. POS: [facility]
== END 2017-12-18 09:48 | disposition home or self-care (01) ==
LOC: RAD-FRANK 09:47
PROVIDERS: ATTEND Nurse Practitioner Family
DX: M54.2 Cervicalgia (principal); M47.892 Other spondylosis, cervical region
CPT/HCPCS: 72040

== ENCOUNTER 2017-12-24 10:11 | Outpatient (CLI) | payer MEDICARE, MEDICAID ==
--- NOTE | 2017-12-24 13:31 | CT ---
CT HEAD WITH AND WITHOUT IV CONTRAST: DATE: 12/24/2017. HISTORY: Breast cancer. Neutropenia. Pain right side of neck and behind right eye. COMPARISON: None available. FINDINGS: There are scattered areas of diminished attenuation of the periventricular white matter which are non specific but likely reflective of chronic small-vessel ischemic changes. There is mild cerebral volu me loss. Ventricular system is normal in size, shape, and position for the degree of sulcal atrophy. There is no evidence of an acute cortical infarction, hemorrhage, mass effect, or midline shift. N o abnormal areas of enhancement are seen after the administration of intravenous contrast. There is a low-density area seen in the region of the pontomedullary junction, but artifact is extending throu gh this region and this is likely artifactual. Mucosal thickening is seen in the bilateral maxillary antra, each sphenoid sinus, as well as minimal mucosal thickening in the ethmoidal air cells. Mastoid air cells are clear. No lytic or sclerotic calvarial lesion is seen. No other findings. IMPRESSION: 1. No acute intracranial abnormality is demonstrated. 2. Chronic small-vessel ischemic changes and mild cerebral volume loss. 3. No findings to suggest metastatic disease based on CT evaluation. 4. Mild sinus disease. POS: [facility]
--- NOTE | 2017-12-24 16:00 | NM ---
WHOLE BODY BONE SCAN: Date: 12/24/17 HISTORY: Left breast cancer; malignant neoplasm of nipple and areola, male. RADIOPHARMACEUTICAL: 31.7 mCi technetium-99m MDP injected intravenously. COMPARISON: Bone scan dated 06/18/16. FINDINGS: Foci of increased uptake in mandible and maxilla consistent with periodontal disease. Uptake in the s houlders, wrists, knees, and feet are consistent with degenerative changes. Asymmetric uptake in the lower lumbar spine corresponding to degenerative changes in the bon windows of the CT scan of 7 is again seen. No other abnormal areas of tracer localization are noted in the skeleton. Tracer exc retion through the kidneys is within normal limits. IMPRESSION: No scintigraphic evidence of osseous metastatic disease. POS: [facility]
[2017-12-24] MEDS ORDERED: Iopamidol 370 76% 100 ML VIAL ONE (16:20)
== END 2017-12-24 10:12 | disposition home or self-care (01) ==
LOC: NM 10:11
PROVIDERS: ATTEND Internal Medicine Hematology & Oncology
DX: C50.022 Malignant neoplasm of nipple and areola, left male breast (principal); K76.9 Liver disease, unspecified; J32.9 Chronic sinusitis, unspecified
CPT/HCPCS: 70470; 78306; A9503

== ENCOUNTER 2017-12-25 08:14 | Day surgery (SDC) | payer MEDICARE, MEDICAID ==
[2017-12-24 14:35] VITALS: BMI 34.4
[2017-12-25 08:34] LABS: #Lymphocytes 0.9 thou/uL (1.20-3.40); #Monocytes 0.8 thou/uL (0.11-0.59); %Basophils 0.1 % (0.0-1.0); %Eosinophils 0.6 % (0.0-10.0); %Lymphocytes 11.2 % (21.0-51.0); %Monocytes 10.1 % (0.0-10.0); %Neutrophils 78.1 % (42.0-75.0); Hemoglobin 13.9 g/dL (14.0-18.0); Mean Corpuscular HGB CONC 31.7 g/dL (32.0-36.0); Mean Corpuscular Hemoglobin 32.4 pg (27.0-31.0); Mean Platelet Volume 6.5 fL (7.4-10.4); Platelet Count 103 thou/uL (130-400); RBC Distribution Width 13.4 % (11.5-14.5); Red Blood Cell (RBC) Count 4.28 mill/uL (4.70-6.10); White Blood Cell (WBC) Count 7.7 thou/uL (4.8-10.8)
[2017-12-25 08:36] LABS: INR-International Normal Ratio 1.3; PTT 34.9 SEC (22.9-36.1); Prothrombin Time 15.8 SEC (12.0-14.7)
[2017-12-25] MEDS ORDERED: Fentanyl 100 MCG/2 ML VIAL ONE (10:13)
[2017-12-25] MEDS ORDERED: Midazolam HCl 2 mg/2 ml Vial ONE (10:13)
[2017-12-25] MEDS ORDERED: Sodium Bicarbonate 2.5 MEQ/5 ML VIAL ONE (10:15)
[2017-12-25] MEDS ORDERED: Lidocaine 1% PF 5 ML VIAL ONE ×2 (10:15→11:47)
--- NOTE | 2017-12-25 12:43 | RAD ---
INSPIRATORY/EXPIRATORY UPRIGHT CHEST: Indication: Status post liver biopsy. FINDINGS: No significant right sided pneumothorax is evident. There is a right IJ chest wall port in place. The re is moderate cardiomegaly. There is bibasilar atelectasis. There is pulmonary opacity within the le ft upper lobe corresponding to lesions demonstrated within the left upper lobe on a recent CT evaluat ion of the chest dated 12-11-17. IMPRESSION: No evidence of pneumothorax. POS: [facility]
--- NOTE | 2017-12-25 13:48 | CT ---
CT GUIDED RIGHT HEPATIC LOBE LESION BIOPSY: Date: 12/25/17 INDICATION: History of breast cancer with new hepatic lesion within the liver suspicious for metastatic disease. COMPARISON: Recent CT examination of the thorax dated 12/11/17. TECHNIQUE: Informed consent was obtained. Preprocedure CT images were obtained for guidance purposes only to catherine luate for the lesions within segment 7 of the right hepatic lobe. Site overlying the most conspicuous lesion in the right hepatic lobe, seen on the CT examination dated 12/01/17, was marked. Site was pr epped and draped in the usual sterile fashion. Patient underwent conscious sedation under the evan ce of the radiology nurse. The patient received 50 mcg of IV fentanyl and 1 mg of IV Versed. Under CT fluoroscopic guidance, a 17 gauge trocar needle was guided down into the lesion just over the assembler final olateral aspect of the 10th rib. The needle was advanced to the level of the lesion. Two separate cor e samples were obtained. Pathology was on site to verify adequacy of tissue sampling. A small pledget of Gelfoam was then guided into the trocar needle and was deployed with removal of the trocar needle . The patient tolerated the procedure without difficulty. Post procedure CT images demonstrate a smal l amount of gas within the right chest wall, as well as overlying the right hepatic lobe capsule with small amount of hemorrhage. There is small right pleural effusion and right basilar atelectasis. No pneumothorax is demonstrated. IMPRESSION: Successful CT guided right hepatic lobe liver lesion biopsy. POS: [facility]
== END 2017-12-25 12:25 | disposition home or self-care (01) ==
LOC: CT 08:14
PROVIDERS: ATTEND Internal Medicine Hematology & Oncology
PROC: 0FB13ZX Excision of Right Lobe Liver, Percutaneous Approach, Diagnostic (ICD-10-PCS; principal; 2017-12-25)
DX: C7A.1 Malignant poorly differentiated neuroendocrine tumors (principal); F17.220 Nicotine dependence, chewing tobacco, uncomplicated; Z85.3 Personal history of malignant neoplasm of breast; Z92.3 Personal history of irradiation; Z92.21 Personal history of antineoplastic chemotherapy; Z79.810 Long term (current) use of selective estrogen receptor modulators (SERMs); Z79.899 Other long term (current) drug therapy; Z95.828 Presence of other vascular implants and grafts
CPT/HCPCS: 36415; 47000; 71045; 77012; 85025; 85610; 85730; 88307; 88341; 88342; 88360; J2001; J2250; J3010

== ENCOUNTER 2018-01-07 11:16 | Emergency (ER) | payer MEDICARE, MEDICAID ==
[2018-01-07 13:11] LABS: Bilirubin Small (Negative); Blood, Urine Negative (Negative); Clarity CLEAR (Clear); Glucose, Urine (Dipstick) Negative (Negative); Leukocyte Moderate (Negative); Nitrite Positive (Negative); Protein, Urine (Dipstick) Trace mg/dL (Neg-Trace); Specific Gravity, Urine 1.033 (1.002-1.036); pH, Urine 5.5 (5.0-9.0)
[2018-01-07 13:14] LABS: Bacteria/HPF None Seen HPF (None Seen); Pathc Cast-AUWi Flag 2.47 (0-2.49); WBC/HPF 21-50 HPF (0-3)
[2018-01-07 13:22] LABS: Hyaline Casts/LPF 0-3 HYALINE CAST LPF (0-3 Hyaline); RBC/HPF 0-3 HPF (0-3); Renal Epithelial None Seen HPF (0-3); Transitional Epithelial 0-3 HPF (0-3)
== END 2018-01-07 13:35 | disposition home or self-care (01) ==
LOC: ERS 11:16
DX: N39.0 Urinary tract infection, site not specified (principal); M54.6 Pain in thoracic spine; M25.511 Pain in right shoulder; C34.90 Malignant neoplasm of unspecified part of unspecified bronchus or lung; F17.220 Nicotine dependence, chewing tobacco, uncomplicated
CPT/HCPCS: 81003; 81015; 99283

== ENCOUNTER 2018-01-17 16:54 | Emergency (ER) | payer MEDICARE, MEDICAID ==
[~2018-01-17 16:54] MED LIST: Iopamidol 370 76% 100 ML VIAL ONE
[2018-01-17 18:12] LABS: #Lymphocytes 0.5 thou/uL (1.20-3.40); #Neutrophils 5.1 thou/uL (1.40-6.50); %Basophils 0.4 % (0.0-1.0); %Eosinophils 0.4 % (0.0-10.0); %Lymphocytes 9.1 % (21.0-51.0); %Monocytes 0.3 % (0.0-10.0); %Neutrophils 89.7 % (42.0-75.0); Hemoglobin 11.5 g/dL (14.0-18.0); Mean Corpuscular HGB CONC 33.4 g/dL (32.0-36.0); Mean Corpuscular Hemoglobin 33.4 pg (27.0-31.0); Mean Platelet Volume 6.9 fL (7.4-10.4); Platelet Count 113 thou/uL (130-400); Red Blood Cell (RBC) Count 3.44 mill/uL (4.70-6.10); White Blood Cell (WBC) Count 5.6 thou/uL (4.8-10.8)
--- NOTE | 2018-01-17 18:18 | RAD ---
SINGLE VIEW OF THE CHEST: Comparison: 05-12-17 History: Retained fluid. FINDINGS: Single view of the chest shows an enlarged but stable cardiomediastinal silhouette. The Mediport is u nchanged in position. There is no evidence of consolidation. There is opacity in the right lung base which may represent either an elevated hemidiaphragm versus a small right pleural effusion. IMPRESSION: Possible small right pleural effusion. POS: [facility]
[2018-01-17 18:25] LABS: ALT (SGPT) 52 U/L (8-55); AST (SGOT) 82 U/L (5-34); Alkaline Phosphatase 197 U/L (40-150); Anion Gap 12 mmol/L (10-20); BUN (Urea Nitrogen) 33 mg/dL (8.4-25.7); Bilirubin, Total 1.4 mg/dL (0.2-1.2); CK (CPK) 131 U/L (30-200); Calc. Creatinine Clearance 0 mL/min (70-130); Calcium 9.2 mg/dL (7.8-10.44); Carbon Dioxide 25 mmol/L (23-31); Chloride 99 mmol/L (98-107); Estimated GFR-MDRD 68; Glucose 122 mg/dL (80-115); Potassium 4.1 mmol/L (3.5-5.1); Sodium 132 mmol/L (136-145)
[2018-01-17 18:30] LABS: Troponin I Less than 0.010 ng/mL (< 0.028)
--- NOTE | 2018-01-17 19:28 | CT ---
CTA OF THE CHEST WITH CONTRAST: Comparison: 10-15-16, CT chest 12-11-17. History: Dyspnea. On chemotherapy. Breast cancer. Technique: Multiple contiguous axial images were obtained in a CTA of the chest with contrast. Sagitt al and coronal reformats were performed. FINDINGS: The pulmonary arteries are well opacified without ====== to suggest pulmonary emboli. The heart is no rmal in size without focal cardiac abnormality. There are innumerable enlarged hilar and mediastinal lymph nodes. The largest is seen in a subcarinal location measuring 7.9 cm in greatest dimension. There are also multiple masses in the left upper lo be. The largest measures 5.3 cm in greatest dimension. There is a small to moderate right pleural eff usion. No left pleural effusion is seen. Degenerative changes are seen in the spine. There is a Mediport with its tip in the superior vena cav a. No suspicious osseous lesions are identified. The liver is slightly nodular and may be cirrhotic. There appear to be focal lesions in the right lob e of the liver which appear to have enlarged compared to the prior examination. There are multiple ma sses in the upper abdomen which likely represent enlarged lymph nodes. There is a small amount of asc ites. IMPRESSION: 1. No evidence of pulmonary thromboembolism. 2. Mediastinal and hilar masses likely represent metastatic disease. 3. Left upper lobe masses likely represent metastatic disease. 4. Worsening of hepatic metastasis. 5. Right pleural effusion. 6. Masses in the upper abdomen likely represent enlarged abdominal lymph nodes. POS: [facility]
[2018-01-17 20:32] LABS: Bilirubin Negative (Negative); Blood, Urine Negative (Negative); Clarity CLEAR (Clear); Glucose, Urine (Dipstick) Negative (Negative); Leukocyte Negative (Negative); Nitrite Negative (Negative); Protein, Urine (Dipstick) 30 mg/dL (Neg-Trace); Urobilinogen 0.2 mg/dL (0.2-1.0)
[2018-01-17 20:35] LABS: Bacteria/HPF None Seen HPF (None Seen); Hyaline Casts/LPF 0-3 HYALINE CAST LPF (0-3 Hyaline); Pathc Cast-AUWi Flag 0.14 (0-2.49); RBC/HPF 0-3 HPF (0-3); Squamous Epithelial 0-3 HPF (0-3); WBC/HPF 0-3 HPF (0-3)
[2018-01-17] MEDS ORDERED: Methocarbamol 500 MG TAB PO SCH (20:45)
--- NOTE | 2018-01-17 21:57 | CT ---
CT ABDOMEN AND PELVIS WITHOUT CONTRAST: Comparison: 06-18-16, CTA chest 01-17-18. History: Abdominal distention. Evaluate for obstruction. Technique: Multiple contiguous axial images were obtained in a CT of the abdomen and pelvis without c ontrast. Coronal reformats were performed. FINDINGS: There is a small amount of ascites. There appears to be a large mass in the right lobe of the liver w hich cannot be characterized without IV contrast. This measures approximately 13.1 cm in size. The li chiqui may be slightly nodular in appearance which could be secondary to cirrhosis. There is contrast in both renal collecting systems from recent contrast examination. The kidneys, adrenal glands, spleen and pancreas are unremarkable, although evaluation is limited wit hout IV contrast. There are multiple round masses in the valeria hepatis region and in the upper retroperitoneum. These m easure up to 6.9 cm in size and likely represent enlarged lymph nodes. There are few scattered diverticula in the colon. Small bowel is normal in caliber without significan t distention. Degenerative changes are seen in the spine. Please see dedicated chest CT for findings above the diap hragms. IMPRESSION: 1. No evidence of bowel obstruction. 2. Apparent cirrhosis with small ascites. 3. Likely large right hepatic mass is concerning for progression of metastatic disease. 4. Large masses in the upper abdomen and retroperitoneum likely represent worsening lymphadenopathy. POS: [facility]
[2018-01-17] MEDS ORDERED: traMADol HCl 50 MG TAB ONE (22:31)
== END 2018-01-17 22:40 | disposition home or self-care (01) ==
LOC: ERS 16:54
DX: R18.8 Other ascites (principal); R16.0 Hepatomegaly, not elsewhere classified; I48.91 Unspecified atrial fibrillation; F17.220 Nicotine dependence, chewing tobacco, uncomplicated
CPT/HCPCS: 71045; 71275; 74176; 80053; 81003; 81015; 82550; 82553; 83880; 84484; 85025; 87086; 93005; 96360; 96361

== ENCOUNTER 2018-01-18 13:14 | Day surgery (SDC) | payer MEDICARE, MEDICAID ==
[2018-01-18] MEDS ORDERED: Pegfilgrastim Onpro 6 MG/0.6 ML SQ SCH (13:30)
[2018-01-18 13:39] VITALS: TEMP 97.7
== END 2018-01-18 19:30 | disposition home or self-care (01) ==
LOC: ONC/OP 13:14
PROVIDERS: ATTEND Internal Medicine Hematology & Oncology
DX: C50.022 Malignant neoplasm of nipple and areola, left male breast (principal); D70.8 Other neutropenia; C7A.1 Malignant poorly differentiated neuroendocrine tumors; F17.220 Nicotine dependence, chewing tobacco, uncomplicated; Z17.0 Estrogen receptor positive status [ER+]; Z79.810 Long term (current) use of selective estrogen receptor modulators (SERMs); Z79.899 Other long term (current) drug therapy
CPT/HCPCS: 80053; 96377; J2505

== ENCOUNTER 2018-01-22 10:07 | Day surgery (SDC) | payer MEDICARE, MEDICAID ==
[2018-01-22] MEDS ORDERED: Sodium Chloride 0.9% 10 ML ONE (10:11)
[2018-01-22] MEDS ORDERED: diphenhydrAMINE 25 MG CAP PO SCH (10:30)
[2018-01-22] MEDS ORDERED: Acetaminophen 500 MG TAB PO SCH (10:30)
[2018-01-22] MEDS ORDERED: Sodium Chloride 0.9% 20 ML ONE (12:47)
[2018-01-22 12:51] VITALS: BP 128/66; TEMP 99
== END 2018-01-22 16:41 | disposition home or self-care (01) ==
LOC: ONC/OP 10:07
PROVIDERS: ATTEND Internal Medicine Hematology & Oncology
PROC: 30233R1 Transfusion of Nonautologous Platelets into Peripheral Vein, Percutaneous Approach (ICD-10-PCS; principal; 2018-01-22)
DX: D69.6 Thrombocytopenia, unspecified (principal); D64.9 Anemia, unspecified; Z79.810 Long term (current) use of selective estrogen receptor modulators (SERMs); Z79.899 Other long term (current) drug therapy
CPT/HCPCS: 36415; 36430; 80048; 86850; 86900; 86901; J1642; P9035

== ENCOUNTER 2018-02-03 11:03 | Inpatient (IN) | payer MEDICARE, MEDICAID ==
[2018-02-03] MEDS ORDERED: Furosemide 40 MG/4 ML VIAL SLOW IVP SCH ×3 (14:45→22:00)
[2018-02-03] MEDS ORDERED: Ondansetron PF 4 MG/2 ML Vial IVP PRN (15:08)
[2018-02-03 17:26] LABS: Anion Gap 14 mmol/L (10-20); BUN (Urea Nitrogen) 15 mg/dL (8.4-25.7); Calc. Creatinine Clearance 143 mL/min (70-130); Calcium 8.7 mg/dL (7.8-10.44); Carbon Dioxide 30 mmol/L (23-31); Chloride 92 mmol/L (98-107); Estimated GFR-MDRD Greater than 90; Glucose 128 mg/dL (80-115); Potassium 3.9 mmol/L (3.5-5.1); Sodium 132 mmol/L (136-145)
--- NOTE | 2018-02-03 17:30 | ULT ---
LIMITED ABDOMINAL ULTRASOUND: HISTORY: Possible ascites. Abdominal distention. TECHNIQUE: Multiplanar avendaño-scale images were obtained in a limited abdominal ultrasound. FINDINGS: There is a moderate amount of ascites. The largest pocket is seen in the right lower quadrant of the abdomen. Minimal ascites is seen in the right upper quadrant of the abdomen. IMPRESSION: Moderate ascites. POS: [facility]
--- NOTE | 2018-02-03 18:19 | RAD ---
PORTABLE CHEST: 02/03/18 PROVIDED CLINICAL HISTORY: Shortness of breath. COMPARISON: 01/17/18. The cardiac silhouette appears enlarged. Moderate right pleural effusion with adjacent atelectasis or infiltrate. Right sided implanted port is again seen and similar in position. Persistent but decreas ed air space disease in the left upper lung zone. No evidence for pneumothorax. IMPRESSION: Development of moderate right pleural effusion with adjacent atelectasis or infiltrate. Followup is r ecommended. Persistent but less conspicuous left upper lung zone consolidation. POS: [facility]
[2018-02-03] MEDS ORDERED: Ondansetron ODT 8 MG TAB PO PRN (19:33)
[2018-02-03] MEDS ORDERED: Prochlorperazine Maleate 5 MG TAB PO PRN (19:34)
[2018-02-03] MEDS ORDERED: Potassium Chloride 20 MEQ TAB PO SCH (19:45)
[2018-02-03] MEDS: Famotidine 20 MG TAB PO SCH (21:27)
[2018-02-03] MEDS: Albumin 25% 25 GM/100 ML BOT IVPB SCH (21:28)
[2018-02-03] MEDS: Metoprolol Tartrate 25 MG TAB PO SCH (21:28)
[2018-02-03] MEDS ORDERED: D15W AA 5% IV SCH (22:00)
[2018-02-03] MEDS ORDERED: MULTITRACE IV SCH (22:00)
[2018-02-03] MEDS ORDERED: FAMOTIDINE IV SCH (22:00)
[2018-02-03] MEDS ORDERED: MULTIVITAMINS IV SCH (22:00)
[2018-02-03] MEDS ORDERED: [UNRECOGNIZED DRUG - OTHER] IV SCH (22:00)
--- NOTE | 2018-02-04 00:47 | HP ---
CHIEF COMPLAINT: Generalized weakness, lack of appetite, severe peripheral edema, abdominal swelling, tiredness, and abdominal pain. HISTORY OF PRESENT ILLNESS: The patient is a 68-year-old male, who is sent by Dr. Blanca from her office today, who presented with above-mentioned symptoms. This was going on for several weeks after he had sessions of chemotherapy for a newly diagnosed small-cell lung cancer based on a liver biopsy approximately 5 weeks ago. He gradually started feeling worse and worse. He became weak. His appetite was getting worse. He cannot sleep. He is tired. His abdomen is swollen and there is massive peripheral edema on his both lower extremities. Also, he has some diffuse abdominal pain. He feels short of breath. PAST MEDICAL HISTORY: 1. He was diagnosed with bilateral breast cancer in 2017. He had a surgery done on the left breast and the tumor was removed. 2. History of atrial fibrillation status post ablation, several years ago. 3. BRCA2 deletion. 4. Small-cell lung cancer diagnosed 5 weeks ago based on liver biopsy since it metastasized to the liver. PAST SURGICAL HISTORY: 1. Small intestinal tumor removal in 2007. 2. Atrial fibrillation ablation in 1999. 3. Left breast surgery for breast cancer. ALLERGIES: NONE. FAMILY HISTORY: Father of unknown causes. Mother of unknown causes. His daughter 3 years ago of ovarian cancer at a young age. Also, one of his brother of advanced liver cancer, just last year. SOCIAL HISTORY: He chews tobacco. He drinks about 2 to 3 beers per day. No history of alcohol or drug abuse. CURRENT MEDICATIONS: Please refer to the medications list. REVIEW OF SYSTEMS: No night sweats. No weight loss. No blurred vision. No eye irritation. No sore throat or hoarseness. No chest pain or palpitations. Positive for shortness of breath. Positive for some cough. Negative for diarrhea, constipation, or bleeding. Positive for joint pain and back pain. Negative for rashes or itches. Positive for massive peripheral edema. Negative for frequency, hesitancy, or pain during urination. Negative for bruising, bleeding or clotting abnormalities. Positive for generalized weakness. Negative for seizures. Negative for anxiety or depression. PHYSICAL EXAMINATION: VITAL SIGNS: Vitals are still pending in the hospital. Vitals from Dr. Blanca's office, temperature is 98.5, pulse is 122, systolic blood pressure is 106, diastolic 60, O2 saturation 92%. HEENT: Head is atraumatic and normocephalic. Eyes, pupils respond to light properly. Conjunctivae are palish. Oral mucosa is slightly dry. NECK: Supple. No JVD. LUNGS: Breath sounds are somewhat diminished at both bases. HEART: S1, S2. Somewhat irregular and mildly tachycardic. No murmur. ABDOMEN: Distended with presence of ascites. Abdominal discomfort on diffuse palpation all over the abdomen. I do not feel any masses. EXTREMITIES: 3 to 4+ peripheral edema on both lower extremities, similar on both sides. Pulses are not palpable on distal dorsalis pedis and tibialis posterior arteries secondary to massive anasarca. NEUROLOGIC: He is alert and oriented x4. There are no any motor deficits. Cranial nerves are intact. LABORATORY DATA: White count of 13.7, hemoglobin 8.1, hematocrit 24.2, MCV 93.5, platelet count , ANC 11.7. IMPRESSION: 1. Anasarca. 2. Ascites. 3. 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 4. History of bilateral breast cancer. 5. History of atrial fibrillation, status post ablation. 6. Normocytic anemia. PLAN: Full admission. Condition is fair. He is not in any distress during my visit. IV Hep-Lock. Diet is regular with limitation of sodium to 2 g per day. IV Lasix 40 mg IV push x1 now, then 40 after the first unit of packed red blood cells. Transfuse 2 units of packed red blood cells. Abdominal ultrasound and paracentesis with replacement of albumin after that. He will be on Lasix 40 IV push q.12 hours starting tomorrow. We will have serial BMPs and CBCs. We will obtain echocardiogram to assess his LVEF. We will do a DVT prophylaxis and PUD prophylaxis with H2 bradley and Lovenox. Dr. Blanca will be consulted since he is her patient. Job ID: [id number]
[2018-02-04] MEDS: Albumin 25% 25 GM/100 ML BOT IVPB SCH ×5 (01:45→21:30)
[2018-02-04 05:42] LABS: #Lymphocytes 0.8 thou/uL (1.20-3.40); #Monocytes 0.9 thou/uL (0.11-0.59); #Neutrophils 8.3 thou/uL (1.40-6.50); %Basophils 0.3 % (0.0-1.0); %Eosinophils 0.3 % (0.0-10.0); %Lymphocytes 7.5 % (21.0-51.0); %Monocytes 8.8 % (0.0-10.0); %Neutrophils 83.1 % (42.0-75.0); Hemoglobin 9.1 g/dL (14.0-18.0); Mean Corpuscular HGB CONC 33.3 g/dL (32.0-36.0); Mean Corpuscular Hemoglobin 31.3 pg (27.0-31.0); Mean Corpuscular Volume 93.9 fL (78.0-98.0); Mean Platelet Volume 6.5 fL (7.4-10.4); Platelet Count 151 thou/uL (130-400); RBC Distribution Width 14.3 % (11.5-14.5); Red Blood Cell (RBC) Count 2.91 mill/uL (4.70-6.10)
[2018-02-04 06:00] LABS: Anion Gap 12 mmol/L (10-20); BUN (Urea Nitrogen) 15 mg/dL (8.4-25.7); Calc. Creatinine Clearance 141 mL/min (70-130); Calcium 8.3 mg/dL (7.8-10.44); Carbon Dioxide 33 mmol/L (23-31); Chloride 94 mmol/L (98-107); Estimated GFR-MDRD Greater than 90; Glucose 122 mg/dL (80-115); Potassium 3.8 mmol/L (3.5-5.1); Sodium 135 mmol/L (136-145)
[2018-02-04] MEDS: Furosemide 40 MG/4 ML VIAL SLOW IVP SCH ×2 (06:15→13:46)
[2018-02-04 07:34] LABS: INR-International Normal Ratio 1.4; PTT 38.9 SEC (22.9-36.1)
[2018-02-04] MEDS ORDERED: Sodium Bicarbonate 2.5 MEQ/5 ML VIAL ONE (08:56)
[2018-02-04] MEDS: Enoxaparin Sodium 40 MG/0.4 ML SYRINGE SC SCH (09:20)
[2018-02-04] MEDS: Potassium Chloride 20 MEQ TAB PO SCH ×2 (09:25→16:56)
[2018-02-04] MEDS: Metoprolol Tartrate 25 MG TAB PO SCH ×2 (09:25→21:55)
[2018-02-04] MEDS: Famotidine 20 MG TAB PO SCH ×2 (09:26→21:56)
[2018-02-04] MEDS: Cyanocobalamin (Vitamin B-12) 1,000 MCG TAB PO SCH (09:26)
[2018-02-04] MEDS: Acetaminophen/Codeine 30-300mg Tablet PO PRN (09:26)
--- NOTE | 2018-02-04 10:58 | ULT ---
ULTRASOUND GUIDED PARACENTESIS: Date: 02/04/18 HISTORY: Patient with left breast cancer and metastatic disease. Patient has ascites. TECHNIQUE: After informed consent was obtained, the patient was placed on the sonography table in the supine pos ition. Limited sonographic evaluation of the abdomen was performed. An area in the mid axillary line right lower quadrant was marked and the area was meticulously prepped and draped in the usual sterile fashion. Skin and subcutaneous tissues were infiltrated with buffered 1% lidocaine for local anesthe beto. Small skin incision was made. Utilizing concurrent real-time ultrasound guidance, a 19 gauge [email or web address] nee dle with 5 Bengali sheath was advanced into the abdomen. After return of fluid, the catheter was advan gifyt, and the needle was removed. Approximately 2,550 mL of serosanguinous fluid was aspirated. Limite d sonographic evaluation demonstrated no additional fluid adjacent to the catheter, and as a result, the catheter was removed and hemostasis was achieved with direct pressure. A dry, sterile dressing wa s placed at puncture site. The patient tolerated the procedure well and without immediate complication. IMPRESSION: Technically successful ultrasound guided paracentesis with aspiration of 2,550 mL of serosanguinous f luid. POS: [facility]
--- NOTE | 2018-02-04 12:10 | PDOC.PN ---
- Subjective Encounter Start Date: 02/04/18 Encounter Start Time: 12:08 Subjective: breathing better after paracentesis, removed 2.5 liters of ascites fluid - Objective Resuscitation Status - Order Detail: 02/03/18 15:08 Resuscitation Status Routine Resuscitation Status: FULL: Full Resuscitation MAR Reviewed: Yes Vital Signs & Weight: Vital Signs (12 hours) Temp Pulse Pulse Resp BP BP Pulse Ox 02/04/18 08:00 97.9 F 103 H 22 H 110/59 L 97 02/04/18 04:00 97.8 F 99 20 136/73 97 02/04/18 01:05 97.9 F 102 H 20 122/66 95 Weight Weight 253 lb 14.4 oz I&O: 02/03/18 02/04/18 02/05/18 06:59 06:59 06:59 Intake Total 864 Output Total 1200 Balance -336 Result Diagrams: 02/04/18 05:35 02/04/18 05:35 Phys Exam - Physical Examination HEENT: PERRLA, moist MMs, sclera anicteric, TM's clear, oral pharynx no lesions , 2+ tonsils Neck: no nodes, no JVD, supple, full ROM Respiratory: no rales, no rhonchi, wheezing present Cardiovascular: RRR, no significant murmur ++ abd distension significant pedal edema Psychiatric: normal affect, A&O x 3 Skin: no rash, normal turgor, cap refill <2 seconds Dx/Plan (1) Small cell carcinoma of lung Code(s): C34.90 - MALIGNANT NEOPLASM OF UNSP PART OF UNSP BRONCHUS OR LUNG Status: Acute Comment: Per Oncology, patient now S/P Chemo and worsening overall weakness, difficulty breathing and low Hb and generalized swelling (2) Anasarca Code(s): R60.1 - GENERALIZED EDEMA Status: Acute Comment: Continue lasix, albumin,;ow salt diet (3) Ascites Code(s): R18.8 - OTHER ASCITES Status: Acute Qualifiers: Ascites type: malignant Qualified Code(s): R18.0 - Malignant ascites Comment: S/P Paracentesis, removed 2.5 liters. 4 units of albumin givem (4) Anemia Code(s): D64.9 - ANEMIA, UNSPECIFIED Status: Chronic Qualifiers: Anemia type: other cause Other causes of anemia: antineoplastic chemotherapy Qualified Code(s): D64.81 - Anemia due to antineoplastic chemotherapy; T45.1X5A - Adverse effect of antineoplastic and immunosuppressive drugs, initial encounter Comment: S/P transfusion PRBC x 2 - Plan cont current plan of care, respiratory therapy, DVT proph w/lovenox * .
--- NOTE | 2018-02-04 12:32 | CON ---
DATE OF CONSULTATION: 02/04/2018 HISTORY OF PRESENT ILLNESS: Mr. 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 He does have a history of stage 3 infiltrating ductal carcinoma of the left breast, for which he received chemotherapy in 2017 as well as radiation to the chest wall. Unfortunately, he presented with back pain approximately 2 months ago and was found to have metastatic disease of the liver. Biopsy of this proved to be a different malignancy, neuroendocrine carcinoma. He received cycle #1 of carboplatin and etoposide 3 weeks ago, but has had a continuous decline over the last 2 to 3 weeks. He has had increasing lower extremity swelling as well as inability to get around and increased abdominal girth. He has had low appetite and is not eating. He thinks he is gaining weight because of fluid, but loosing muscle mass. He has had increasing shortness of breath as well as low appetite. He denies any fevers or chills at home. He presented for cycle #2 of chemotherapy, but was too weak to even get out of the wheelchair. He was quite anemic on that day, and because of that, was admitted for the above reasons. This morning, he has had a blood transfusion and is feeling mildly better. He does still complain of shortness of breath. His legs are still swollen impressively. PAST MEDICAL HISTORY: 1. History of stage 3 breast cancer, currently thought to be in remission. 2. Hypercholesterolemia. 3. Hypertension. 4. Obesity. 5. History of smokeless tobacco use. MEDICATIONS: Current medications: 1. Tylenol 3 p.r.n. 2. Albumin 25 g IV q.6 hours. 3. Vitamin D 1000 units p.o. daily. 4. Vitamin B12 1000 mcg p.o. daily. 5. Lovenox 40 mg subcutaneous daily. 6. Pepcid 20 mg p.o. b.i.d. 7. Lasix 40 mg IV b.i.d. 8. Lopressor 25 mg p.o. b.i.d. 9. Morphine 4 mg IV q.4 hours p.r.n. 10. Zofran 4 mg IV q.6 hours p.r.n. 11. Zofran 8 mg p.o. q.8 hours. 12. K-Dur 20 mEq p.o. b.i.d. 13. Compazine 10 mg p.o. q.6 hours p.r.n. 14. Tamoxifen 20 mg p.o. daily. 15. Ultram 50 mg p.o. q.6 hours p.r.n. ALLERGIES: NO KNOWN DRUG ALLERGIES. SOCIAL HISTORY: Prior to this he lived alone, but in the last week, has moved in with his son, because he has gotten quite sick. He denies any tobacco use recently, and he does admit to heavy alcohol use, but not in the recent last few days. FAMILY HISTORY: His daughter of ovarian cancer, and he does carry a BRCA deletion, as did his daughter. His family has been tested, otherwise noncontributory. REVIEW OF SYSTEMS: A 10-point review of systems is negative. Please see the history of present illness. PHYSICAL EXAMINATION: VITAL SIGNS: Temperature 97.8, pulse 99, respirations 20, O2 saturation 97% on 2 L nasal cannula, blood pressure 136/73. GENERAL: He is chronically ill-appearing, in no acute distress, quite pleasant. HEENT: Extraocular muscles are intact. Pupils are equal, round, and reactive to light. Sclarea are anicteric. NECK: Supple without lymphadenopathy. CARDIOVASCULAR: Tachycardic, but regular rhythm. LUNGS: Decreased breath sounds in the bases bilaterally, but clear to auscultation anteriorly. He is notably a bit tachypneic with a respiratory rate around 20. ABDOMEN: Distended with dullness in the flanks consistent with ascites, nontender. EXTREMITIES: 2 to 3+ pitting edema bilaterally. LABORATORY DATA: White blood cell count 10.0, hemoglobin up to 9.1, platelets 151, sodium 135, potassium 3.8, chloride 94, CO2 of 33, BUN 15, creatinine 0.8, calcium 8.3. ASSESSMENT: Mr. Sanchez is a 68-year-old male with, 1. Metastatic neuroendocrine tumor with metastases to the liver, likely consistent with small cell lung cancer. 2. Ascites, possibly malignant with full body anasarca. 3. History of stage 3 breast cancer, currently in remission on tamoxifen. 4. Weakness and malnutrition. PLAN: 1. He is already on Lasix, continue diuresis, we may have to increase the dosing of this as he has not lost any weight since yesterday. 2. He has an ultrasound-guided paracentesis scheduled for today. 3. I would recommend a palliative care consult. 4. Follow his electrolytes and creatinine closely. 5. I have briefly discussed hospice with the family. We will have to see how he does in the next few days to decide if he is able to turn the corner and go on with further treatment. We have also discussed immunotherapy which may be an option if we can get the volume overload under control. 6. We will follow with you. Job ID: [id number]
[2018-02-04 13:26] VITALS: BMI 33.7
[2018-02-04] MEDS: guaiFENesin/Codeine Phosphate 200 mg/20 mg 10 ml UD Cup PO PRN (21:52)
[2018-02-04] MEDS: traMADol HCl 50 MG TAB PO PRN (21:55)
[2018-02-04] MEDS: Morphine 4 MG/ML VIAL SLOW IVP PRN (23:50)
[2018-02-05] MEDS: Furosemide 40 MG/4 ML VIAL SLOW IVP SCH ×3 (06:06→14:59)
[2018-02-05 06:24] LABS: #Lymphocytes 0.7 thou/uL (1.20-3.40); #Monocytes 0.8 thou/uL (0.11-0.59); #Neutrophils 8.4 thou/uL (1.40-6.50); %Eosinophils 0.4 % (0.0-10.0); %Lymphocytes 7.3 % (21.0-51.0); %Monocytes 7.8 % (0.0-10.0); %Neutrophils 84.5 % (42.0-75.0); Hemoglobin 9.2 g/dL (14.0-18.0); Mean Corpuscular HGB CONC 33.5 g/dL (32.0-36.0); Mean Corpuscular Volume 95.5 fL (78.0-98.0); Mean Platelet Volume 6.4 fL (7.4-10.4); Platelet Count 180 thou/uL (130-400); RBC Distribution Width 14.6 % (11.5-14.5); Red Blood Cell (RBC) Count 2.88 mill/uL (4.70-6.10)
[2018-02-05 06:37] LABS: Anion Gap 11 mmol/L (10-20); BUN (Urea Nitrogen) 15 mg/dL (8.4-25.7); Calc. Creatinine Clearance 147 mL/min (70-130); Calcium 8.6 mg/dL (7.8-10.44); Carbon Dioxide 34 mmol/L (23-31); Chloride 95 mmol/L (98-107); Estimated GFR-MDRD Greater than 90; Glucose 108 mg/dL (80-115); Potassium 4.2 mmol/L (3.5-5.1); Sodium 136 mmol/L (136-145)
[2018-02-05] MEDS: Potassium Chloride 20 MEQ TAB PO SCH ×2 (09:16→17:37)
[2018-02-05] MEDS: Cyanocobalamin (Vitamin B-12) 1,000 MCG TAB PO SCH (09:17)
[2018-02-05] MEDS: Metoprolol Tartrate 25 MG TAB PO SCH ×2 (09:17→21:25)
[2018-02-05] MEDS: Famotidine 20 MG TAB PO SCH ×2 (09:17→21:25)
[2018-02-05] MEDS: Enoxaparin Sodium 40 MG/0.4 ML SYRINGE SC SCH (10:07)
--- NOTE | 2018-02-05 14:19 | PDOC.PN ---
- Subjective Encounter Start Date: 02/05/18 Encounter Start Time: 14:18 Subjective: Breathing and feeling better - Objective Resuscitation Status - Order Detail: 02/03/18 15:08 Resuscitation Status Routine Resuscitation Status: FULL: Full Resuscitation MAR Reviewed: Yes Vital Signs & Weight: Vital Signs (12 hours) Temp Pulse Resp BP Pulse Ox 02/05/18 08:00 98.3 F 110 H 18 125/68 97 Weight Admit Weight 253 lb 14.4 oz Weight 246 lb 8 oz I&O: 02/04/18 02/05/18 02/06/18 06:59 06:59 06:59 Intake Total 864 854 Output Total 1200 1855 Balance -336 -1001 Result Diagrams: 02/05/18 06:13 02/05/18 06:13 Phys Exam - Physical Examination HEENT: PERRLA, moist MMs, sclera anicteric, TM's clear, oral pharynx no lesions , 2+ tonsils Neck: no nodes, no JVD, supple, full ROM Respiratory: no wheezing, no rales, no rhonchi Cardiovascular: RRR, no significant murmur + distention Musculoskeletal: edema present Neurological: non-focal, normal sensation, moves all 4 limbs Psychiatric: normal affect, A&O x 3 Skin: no rash, normal turgor, cap refill <2 seconds Dx/Plan (1) Small cell carcinoma of lung Code(s): C34.90 - MALIGNANT NEOPLASM OF UNSP PART OF UNSP BRONCHUS OR LUNG Status: Acute Comment: Per Oncology, patient now S/P Chemo and worsening overall weakness, difficulty breathing and low Hb and generalized swelling (2) Anasarca Code(s): R60.1 - GENERALIZED EDEMA Status: Acute Comment: Increased lasix, albumin,;ow salt diet (3) Ascites Code(s): R18.8 - OTHER ASCITES Status: Acute Qualifiers: Ascites type: malignant Qualified Code(s): R18.0 - Malignant ascites Comment: S/P Paracentesis, removed 2.5 liters. 4 units of albumin givem (4) Anemia Code(s): D64.9 - ANEMIA, UNSPECIFIED Status: Chronic Qualifiers: Anemia type: other cause Other causes of anemia: antineoplastic chemotherapy Qualified Code(s): D64.81 - Anemia due to antineoplastic chemotherapy; T45.1X5A - Adverse effect of antineoplastic and immunosuppressive drugs, initial encounter Comment: S/P transfusion PRBC x 2 - Plan cont current plan of care, PT/OT, social media content specialist, DVT proph w/SCDs * .
[2018-02-06] MEDS: traMADol HCl 50 MG TAB PO PRN (05:41)
[2018-02-06] MEDS: Furosemide 40 MG/4 ML VIAL SLOW IVP SCH ×2 (05:43→14:14)
[2018-02-06 06:22] LABS: ALT (SGPT) 29 U/L (8-55); AST (SGOT) 47 U/L (5-34); Albumin 2.8 g/dL (3.4-4.8); Alkaline Phosphatase 157 U/L (40-150); Anion Gap 12 mmol/L (10-20); BUN (Urea Nitrogen) 15 mg/dL (8.4-25.7); Bilirubin, Total 0.9 mg/dL (0.2-1.2); Calc. Creatinine Clearance 147 mL/min (70-130); Calcium 8.6 mg/dL (7.8-10.44); Carbon Dioxide 33 mmol/L (23-31); Chloride 95 mmol/L (98-107); Estimated GFR-MDRD Greater than 90; Globulin 4.1 g/dL (2.4-3.5); Glucose 120 mg/dL (80-115); Potassium 4.1 mmol/L (3.5-5.1); Protein, Total 6.9 g/dL (5.8-8.1); Sodium 136 mmol/L (136-145)
[2018-02-06] MEDS: Morphine 4 MG/ML VIAL SLOW IVP PRN ×2 (09:16→16:50)
[2018-02-06] MEDS: Enoxaparin Sodium 40 MG/0.4 ML SYRINGE SC SCH (09:17)
[2018-02-06] MEDS: Potassium Chloride 20 MEQ TAB PO SCH ×2 (09:18→16:50)
[2018-02-06] MEDS: Famotidine 20 MG TAB PO SCH ×2 (09:18→21:10)
[2018-02-06] MEDS: Cyanocobalamin (Vitamin B-12) 1,000 MCG TAB PO SCH (09:19)
[2018-02-06] MEDS: Metoprolol Tartrate 25 MG TAB PO SCH ×2 (09:19→21:10)
[2018-02-06] MEDS: guaiFENesin/Codeine Phosphate 200 mg/20 mg 10 ml UD Cup PO PRN ×2 (09:38→18:15)
--- NOTE | 2018-02-06 11:16 | PDOC.PN ---
- Subjective Encounter Start Date: 02/06/18 Encounter Start Time: 11:15 Subjective: Feeling better, sitting on the chair - Objective Resuscitation Status - Order Detail: 02/03/18 15:08 Resuscitation Status Routine Resuscitation Status: FULL: Full Resuscitation Vital Signs & Weight: Vital Signs (12 hours) Temp Pulse Resp BP Pulse Ox 02/06/18 08:00 98.2 F 102 H 20 123/67 98 02/06/18 05:14 92 L Weight Admit Weight 253 lb 14.4 oz Weight 246 lb 8 oz I&O: 02/05/18 02/06/18 02/07/18 06:59 06:59 06:59 Intake Total 854 Output Total 0427 7090 Balance -1004 -8252 Result Diagrams: 02/05/18 06:13 02/06/18 05:45 Phys Exam - Physical Examination HEENT: PERRLA, moist MMs, sclera anicteric, TM's clear, oral pharynx no lesions , 2+ tonsils Neck: no nodes, no JVD, supple, full ROM Respiratory: no wheezing, no rales Cardiovascular: RRR, no significant murmur, no rub Gastrointestinal: soft + distended Musculoskeletal: edema present Neurological: non-focal, normal sensation, moves all 4 limbs Psychiatric: normal affect, A&O x 3 Skin: no rash, normal turgor, cap refill <2 seconds Dx/Plan (1) Small cell carcinoma of lung Code(s): C34.90 - MALIGNANT NEOPLASM OF UNSP PART OF UNSP BRONCHUS OR LUNG Status: Acute Comment: Per Oncology, patient now S/P Chemo and worsening overall weakness, difficulty breathing and low Hb and generalized swelling. Plans for chemo? (2) Anasarca Code(s): R60.1 - GENERALIZED EDEMA Status: Acute Comment: Increased lasix, albumin,;ow salt diet (3) Ascites Code(s): R18.8 - OTHER ASCITES Status: Acute Qualifiers: Ascites type: malignant Qualified Code(s): R18.0 - Malignant ascites Comment: S/P Paracentesis, removed 2.5 liters. 4 units of albumin givem (4) Anemia Code(s): D64.9 - ANEMIA, UNSPECIFIED Status: Chronic Qualifiers: Anemia type: other cause Other causes of anemia: antineoplastic chemotherapy Qualified Code(s): D64.81 - Anemia due to antineoplastic chemotherapy; T45.1X5A - Adverse effect of antineoplastic and immunosuppressive drugs, initial encounter Comment: S/P transfusion PRBC x 2 - Plan cont current plan of care, plan discussed w/ family, PT/OT, social organization professor, DVT proph w/SCDs * .
[2018-02-07 04:19] LABS: #Lymphocytes 0.5 thou/uL (1.20-3.40); #Monocytes 0.9 thou/uL (0.11-0.59); #Neutrophils 7.1 thou/uL (1.40-6.50); %Basophils 0.3 % (0.0-1.0); %Eosinophils 0.3 % (0.0-10.0); %Lymphocytes 5.9 % (21.0-51.0); %Monocytes 10.5 % (0.0-10.0); Hemoglobin 9.2 g/dL (14.0-18.0); Mean Corpuscular HGB CONC 33.5 g/dL (32.0-36.0); Mean Corpuscular Hemoglobin 32.3 pg (27.0-31.0); Mean Corpuscular Volume 96.3 fL (78.0-98.0); Mean Platelet Volume 6.4 fL (7.4-10.4); Platelet Count 209 thou/uL (130-400); RBC Distribution Width 14.4 % (11.5-14.5); Red Blood Cell (RBC) Count 2.86 mill/uL (4.70-6.10); White Blood Cell (WBC) Count 8.5 thou/uL (4.8-10.8)
[2018-02-07 04:40] LABS: ALT (SGPT) 27 U/L (8-55); AST (SGOT) 38 U/L (5-34); Albumin 2.7 g/dL (3.4-4.8); Alkaline Phosphatase 130 U/L (40-150); Anion Gap 9 mmol/L (10-20); BUN (Urea Nitrogen) 14 mg/dL (8.4-25.7); Bilirubin, Total 1.1 mg/dL (0.2-1.2); Calc. Creatinine Clearance 144 mL/min (70-130); Calcium 8.6 mg/dL (7.8-10.44); Carbon Dioxide 36 mmol/L (23-31); Chloride 93 mmol/L (98-107); Estimated GFR-MDRD Greater than 90; Glucose 139 mg/dL (80-115); LDH 226 U/L (125-220); Potassium 4.1 mmol/L (3.5-5.1); Protein, Total 6.7 g/dL (5.8-8.1); Sodium 134 mmol/L (136-145); Uric Acid 6.8 mg/dL (3.5-7.2)
[2018-02-07] MEDS: Acetaminophen/Codeine 30-300mg Tablet PO PRN ×2 (04:57→13:29)
[2018-02-07 04:58] LABS: T4 7.1 ug/dL (4.87-11.72); Thyroid Stimulating Hormone 3.1642 uIU/mL (0.35-4.94)
[2018-02-07] MEDS: Furosemide 40 MG/4 ML VIAL SLOW IVP SCH ×2 (05:02→13:24)
[2018-02-07] MEDS ORDERED: Dexamethasone 10 MG/ML VIAL SLOW IVP SCH (06:45)
[2018-02-07] MEDS ORDERED: PALONOSETRON HCL 0.05 MG/ML 5 ML VIAL IVP SCH (06:45)
[2018-02-07] MEDS ORDERED: CARBOPLATIN IVPB SCH (07:00)
[2018-02-07] MEDS ORDERED: SODIUM CHLORIDE 0.9% IVPB SCH (07:00)
[2018-02-07] MEDS ORDERED: Pegfilgrastim Onpro 6 MG/0.6 ML SQ SCH (07:30)
[2018-02-07] MEDS: Cyanocobalamin (Vitamin B-12) 1,000 MCG TAB PO SCH (08:25)
[2018-02-07] MEDS: Potassium Chloride 20 MEQ TAB PO SCH ×2 (08:25→16:57)
[2018-02-07] MEDS: Metoprolol Tartrate 25 MG TAB PO SCH ×2 (08:26→20:19)
[2018-02-07] MEDS: Famotidine 20 MG TAB PO SCH ×2 (08:26→20:18)
[2018-02-07] MEDS: Enoxaparin Sodium 40 MG/0.4 ML SYRINGE SC SCH (08:26)
[2018-02-07] MEDS ORDERED: ALPRAZolam 0.25 MG TAB PO PRN (12:30)
--- NOTE | 2018-02-07 12:52 | PDOC.PN ---
- Subjective Encounter Start Date: 02/07/18 Encounter Start Time: 12:50 Subjective: no complaints, waiting for chemo to start - Objective Resuscitation Status - Order Detail: 02/03/18 15:08 Resuscitation Status Routine Resuscitation Status: FULL: Full Resuscitation MAR Reviewed: Yes Vital Signs & Weight: Vital Signs (12 hours) Temp Pulse Resp BP BP Pulse Ox 02/07/18 10:19 98.3 F 92 18 120/61 93 L 02/07/18 08:20 98.6 F 116 H 18 123/62 93 L 02/07/18 08:00 93 L 02/07/18 04:00 98.5 F 98 16 117/56 L 95 Weight Admit Weight 253 lb 14.4 oz Weight 243 lb 12.841 oz I&O: 02/06/18 02/07/18 02/08/18 06:59 06:59 06:59 Intake Total 1400 Output Total 2475 420 Balance -2475 980 Result Diagrams: 02/07/18 04:00 02/07/18 04:00 Phys Exam - Physical Examination HEENT: PERRLA, moist MMs, sclera anicteric, TM's clear, oral pharynx no lesions , 2+ tonsils Neck: no nodes, no JVD, supple, full ROM Respiratory: no wheezing, no rales Cardiovascular: RRR, no significant murmur Gastrointestinal: soft distended Musculoskeletal: edema present Neurological: non-focal, normal sensation, moves all 4 limbs Psychiatric: normal affect, A&O x 3 Dx/Plan (1) Small cell carcinoma of lung Code(s): C34.90 - MALIGNANT NEOPLASM OF UNSP PART OF UNSP BRONCHUS OR LUNG Status: Acute Comment: Per Oncology, patient now S/P Chemo and worsening overall weakness, difficulty breathing and low Hb and generalized swelling. 2nd cycle of chemo started 02/07. After this patient to be reevlauated by Oncology for effectiveness of treatment and decision to be made on further treatment (2) Anasarca Code(s): R60.1 - GENERALIZED EDEMA Status: Acute Comment: Increased lasix, albumin,;ow salt diet (3) Ascites Code(s): R18.8 - OTHER ASCITES Status: Acute Qualifiers: Ascites type: malignant Qualified Code(s): R18.0 - Malignant ascites Comment: S/P Paracentesis, removed 2.5 liters. 4 units of albumin givem (4) Anemia Code(s): D64.9 - ANEMIA, UNSPECIFIED Status: Chronic Qualifiers: Anemia type: other cause Other causes of anemia: antineoplastic chemotherapy Qualified Code(s): D64.81 - Anemia due to antineoplastic chemotherapy; T45.1X5A - Adverse effect of antineoplastic and immunosuppressive drugs, initial encounter Comment: S/P transfusion PRBC x 2 - Plan cont current plan of care, plan discussed w/ family, out of bed/ambulate, DVT proph w/SCDs * .
[2018-02-07] MEDS: Ondansetron PF 4 MG/2 ML Vial IVP SCH (13:22)
[2018-02-08] MEDS: Acetaminophen/Codeine 30-300mg Tablet PO PRN ×2 (03:32→18:21)
[2018-02-08] MEDS: Furosemide 40 MG/4 ML VIAL SLOW IVP SCH ×2 (06:03→13:44)
[2018-02-08] MEDS: Famotidine 20 MG TAB PO SCH ×2 (08:15→20:23)
[2018-02-08] MEDS: Cyanocobalamin (Vitamin B-12) 1,000 MCG TAB PO SCH (08:15)
[2018-02-08] MEDS: Potassium Chloride 20 MEQ TAB PO SCH ×2 (08:15→18:16)
[2018-02-08] MEDS: Metoprolol Tartrate 25 MG TAB PO SCH ×2 (08:15→20:23)
[2018-02-08] MEDS: Enoxaparin Sodium 40 MG/0.4 ML SYRINGE SC SCH (08:15)
[2018-02-08] MEDS ORDERED: Polyethylene Glycol 3350 17 GM Packet PO PRN (10:41)
[2018-02-08] MEDS ORDERED: Dexamethasone 10 MG/ML VIAL SLOW IVP SCH (12:00)
--- NOTE | 2018-02-08 12:10 | PDOC.PN ---
- Subjective Encounter Start Date: 02/08/18 Encounter Start Time: 12:09 Subjective: Doing well - Objective Resuscitation Status - Order Detail: 02/03/18 15:08 Resuscitation Status Routine Resuscitation Status: FULL: Full Resuscitation Vital Signs & Weight: Vital Signs (12 hours) Temp Pulse Resp BP Pulse Ox 02/08/18 08:00 98.4 F 112 H 18 119/65 94 L 02/08/18 04:00 97.7 F 85 18 118/71 93 L Weight Admit Weight 253 lb 14.4 oz Weight 249 lb 14.4 oz I&O: 02/07/18 02/08/18 02/09/18 06:59 06:59 06:59 Intake Total 1400 2057 Output Total 420 1425 Balance 980 632 Result Diagrams: 02/07/18 04:00 02/07/18 04:00 Phys Exam - Physical Examination HEENT: PERRLA, moist MMs, sclera anicteric, TM's clear, oral pharynx no lesions , 2+ tonsils Neck: no nodes, no JVD, supple, full ROM Respiratory: no wheezing, no rales Cardiovascular: RRR, no significant murmur Gastrointestinal: soft, non-tender +distention Musculoskeletal: edema present Neurological: non-focal, normal sensation, moves all 4 limbs Dx/Plan (1) Small cell carcinoma of lung Code(s): C34.90 - MALIGNANT NEOPLASM OF UNSP PART OF UNSP BRONCHUS OR LUNG Status: Acute Comment: Per Oncology, patient now S/P Chemo and worsening overall weakness, difficulty breathing and low Hb and generalized swelling. 2nd cycle of chemo started 02/07. After this patient to be reevlauated by Oncology for effectiveness of treatment and decision to be made on further treatment (2) Anasarca Code(s): R60.1 - GENERALIZED EDEMA Status: Acute Comment: Increased lasix, albumin,;ow salt diet (3) Ascites Code(s): R18.8 - OTHER ASCITES Status: Acute Qualifiers: Ascites type: malignant Qualified Code(s): R18.0 - Malignant ascites Comment: S/P Paracentesis, removed 2.5 liters. 4 units of albumin givem (4) Anemia Code(s): D64.9 - ANEMIA, UNSPECIFIED Status: Chronic Qualifiers: Anemia type: other cause Other causes of anemia: antineoplastic chemotherapy Qualified Code(s): D64.81 - Anemia due to antineoplastic chemotherapy; T45.1X5A - Adverse effect of antineoplastic and immunosuppressive drugs, initial encounter Comment: S/P transfusion PRBC x 2 - Plan * .
[2018-02-08] MEDS: Ondansetron PF 4 MG/2 ML Vial IVP SCH (13:47)
[2018-02-08] MEDS: Docusate 100 MG CAP PO SCH (20:23)
[2018-02-09] MEDS: Furosemide 40 MG/4 ML VIAL SLOW IVP SCH ×2 (05:50→15:10)
[2018-02-09] MEDS: Acetaminophen/Codeine 30-300mg Tablet PO PRN ×3 (05:55→22:36)
[2018-02-09 07:43] LABS: Hemoglobin 9.6 g/dL (14.0-18.0); Mean Corpuscular HGB CONC 32.2 g/dL (32.0-36.0); Mean Corpuscular Hemoglobin 30.7 pg (27.0-31.0); Mean Corpuscular Volume 95.4 fL (78.0-98.0); Mean Platelet Volume 6.3 fL (7.4-10.4); Platelet Count 285 thou/uL (130-400); RBC Distribution Width 14.2 % (11.5-14.5); Red Blood Cell (RBC) Count 3.11 mill/uL (4.70-6.10); White Blood Cell (WBC) Count 6.8 thou/uL (4.8-10.8)
[2018-02-09 08:01] LABS: Anion Gap 13 mmol/L (10-20); BUN (Urea Nitrogen) 19 mg/dL (8.4-25.7); Calc. Creatinine Clearance 127 mL/min (70-130); Calcium 9.1 mg/dL (7.8-10.44); Carbon Dioxide 33 mmol/L (23-31); Chloride 92 mmol/L (98-107); Estimated GFR-MDRD 84; Glucose 132 mg/dL (80-115); Potassium 4.4 mmol/L (3.5-5.1); Sodium 134 mmol/L (136-145)
[2018-02-09] MEDS: Docusate 100 MG CAP PO SCH ×2 (08:07→20:26)
[2018-02-09] MEDS: Potassium Chloride 20 MEQ TAB PO SCH ×2 (08:07→17:38)
[2018-02-09] MEDS: Famotidine 20 MG TAB PO SCH ×2 (08:07→20:26)
[2018-02-09] MEDS: Cyanocobalamin (Vitamin B-12) 1,000 MCG TAB PO SCH (08:08)
[2018-02-09] MEDS: Enoxaparin Sodium 40 MG/0.4 ML SYRINGE SC SCH (08:09)
[2018-02-09] MEDS: Metoprolol Tartrate 25 MG TAB PO SCH ×2 (08:13→20:26)
--- NOTE | 2018-02-09 10:21 | PDOC.PN ---
- Subjective Encounter Start Date: 02/09/18 Encounter Start Time: 10:16 Subjective: Doing well, abd feels a little more distended. Walked out and sat -: for a bit and also ate breakfast. Feeling good and strong - Objective Resuscitation Status - Order Detail: 02/03/18 15:08 Resuscitation Status Routine Resuscitation Status: FULL: Full Resuscitation Vital Signs & Weight: Vital Signs (12 hours) Temp Pulse Resp BP Pulse Ox 02/09/18 08:00 94 L 02/09/18 07:56 97.7 F 108 H 18 118/67 94 L Weight Admit Weight 253 lb 14.4 oz Weight 248 lb 9.139 oz I&O: 02/08/18 02/09/18 02/10/18 06:59 06:59 06:59 Intake Total 2057 1760 Output Total 1425 1575 Balance 632 185 Result Diagrams: 02/09/18 07:38 02/09/18 07:38 Phys Exam - Physical Examination HEENT: PERRLA, moist MMs, sclera anicteric, TM's clear, oral pharynx no lesions , 2+ tonsils Neck: no nodes, no JVD, supple, full ROM Respiratory: no wheezing, no rales Cardiovascular: RRR, no significant murmur Gastrointestinal: soft, non-tender, positive bowel sounds distended sognificantly reduced pedal edema Neurological: non-focal, normal sensation, moves all 4 limbs Psychiatric: normal affect, A&O x 3 Skin: no rash, normal turgor, cap refill <2 seconds Dx/Plan (1) Small cell carcinoma of lung Code(s): C34.90 - MALIGNANT NEOPLASM OF UNSP PART OF UNSP BRONCHUS OR LUNG Status: Acute (2) Anasarca Code(s): R60.1 - GENERALIZED EDEMA Status: Acute Comment: Increased lasix, albumin S/P paracentesis, low salt diet with good results and diuresis (3) Ascites Code(s): R18.8 - OTHER ASCITES Status: Acute Qualifiers: Ascites type: malignant Qualified Code(s): R18.0 - Malignant ascites Comment: S/P Paracentesis, removed 2.5 liters. 4 units of albumin given Possible one more paracentesis before DC if required (4) Anemia Code(s): D64.9 - ANEMIA, UNSPECIFIED Status: Chronic Qualifiers: Anemia type: other cause Other causes of anemia: antineoplastic chemotherapy Qualified Code(s): D64.81 - Anemia due to antineoplastic chemotherapy; T45.1X5A - Adverse effect of antineoplastic and immunosuppressive drugs, initial encounter Comment: S/P transfusion PRBC x 2. Hb stable - Plan cont current plan of care, plan discussed w/ family, PT/OT, criminal justice social worker, DVT proph w/lovenox, DVT proph w/SCDs Discharge soon. 2nd cycle of chemo to end on 02/09 JONATHAN Blanca before DC * .
[2018-02-09] MEDS ORDERED: Dexamethasone 10 MG in Sodium Chloride 0.9% 50 ML IVPB SCH (14:15)
[2018-02-09] MEDS: Ondansetron PF 4 MG/2 ML Vial IVP SCH (15:37)
[2018-02-10 04:20] LABS: Hemoglobin 9.1 g/dL (14.0-18.0); Mean Corpuscular HGB CONC 32.9 g/dL (32.0-36.0); Mean Corpuscular Hemoglobin 31.7 pg (27.0-31.0); Mean Corpuscular Volume 96.3 fL (78.0-98.0); Mean Platelet Volume 6.2 fL (7.4-10.4); Platelet Count 184 thou/uL (130-400); RBC Distribution Width 14.3 % (11.5-14.5); Red Blood Cell (RBC) Count 2.86 mill/uL (4.70-6.10)
[2018-02-10 04:40] LABS: Anion Gap 15 mmol/L (10-20); BUN (Urea Nitrogen) 23 mg/dL (8.4-25.7); Calc. Creatinine Clearance 128 mL/min (70-130); Calcium 8.8 mg/dL (7.8-10.44); Carbon Dioxide 29 mmol/L (23-31); Chloride 95 mmol/L (98-107); Estimated GFR-MDRD 85; Glucose 151 mg/dL (80-115); Potassium 4.4 mmol/L (3.5-5.1); Sodium 135 mmol/L (136-145)
[2018-02-10] MEDS: Furosemide 40 MG/4 ML VIAL SLOW IVP SCH (06:37)
[2018-02-10 08:01] VITALS: BP 124/67; TEMP 98.1
[2018-02-10] MEDS: Acetaminophen/Codeine 30-300mg Tablet PO PRN (08:10)
--- NOTE | 2018-02-10 08:29 | PDOC.PN ---
- Subjective Encounter Start Date: 02/10/18 Encounter Start Time: 09:30 Subjective: Patient feeling much better. Swelling in ext and abd improved. Ready to -: go home. - Objective Resuscitation Status - Order Detail: 02/03/18 15:08 Resuscitation Status Routine Resuscitation Status: FULL: Full Resuscitation MAR Reviewed: Yes Vital Signs & Weight: Vital Signs (12 hours) Temp Pulse Resp BP Pulse Ox 02/10/18 07:59 98.1 F 106 H 20 124/67 94 L Weight Admit Weight 253 lb 14.4 oz Weight 248 lb 9.139 oz I&O: 02/09/18 02/10/18 02/11/18 06:59 06:59 06:59 Intake Total 1760 1064 Output Total 1575 2260 Balance 185 -1196 Result Diagrams: 02/10/18 04:05 02/10/18 04:05 Additional Labs: Accuchecks 02/09/18 11:03 POC Glucose 121 H Phys Exam - Physical Examination Constitutional: NAD HEENT: moist MMs Respiratory: no wheezing, no rales, no rhonchi Cardiovascular: RRR Gastrointestinal: soft, positive bowel sounds distended, positive fluid wave, but not tense, mild TTP SH[place] Musculoskeletal: edema present Neurological: non-focal, moves all 4 limbs Psychiatric: normal affect, A&O x 3 Dx/Plan (1) Small cell carcinoma of lung Code(s): C34.90 - MALIGNANT NEOPLASM OF UNSP PART OF UNSP BRONCHUS OR LUNG Status: Acute Comment: Last Chemo treatment 02/09/18, Dr. Blanca following (2) Anasarca Code(s): R60.1 - GENERALIZED EDEMA Status: Acute Comment: Increased lasix, albumin S/P paracentesis, low salt diet with good results and diuresis (3) Ascites Code(s): R18.8 - OTHER ASCITES Status: Acute Qualifiers: Ascites type: malignant Qualified Code(s): R18.0 - Malignant ascites Comment: S/P Paracentesis, removed 2.5 liters. 4 units of albumin given (4) Anemia Code(s): D64.9 - ANEMIA, UNSPECIFIED Status: Chronic Qualifiers: Anemia type: other cause Other causes of anemia: antineoplastic chemotherapy Qualified Code(s): D64.81 - Anemia due to antineoplastic chemotherapy; T45.1X5A - Adverse effect of antineoplastic and immunosuppressive drugs, initial encounter Comment: S/P transfusion PRBC x 2. Hb stable - Plan DVT proph w/lovenox Patient cleared for discharge by Oncology, will f/u in their clinic in one -: week. Will change to oral Lasix 60mg BID comparable to 40 IV BID in -: hospital. * . - Discharge Day Encounter end time: 10:05
[2018-02-10] MEDS: Potassium Chloride 20 MEQ TAB PO SCH (08:38)
[2018-02-10] MEDS: Cyanocobalamin (Vitamin B-12) 1,000 MCG TAB PO SCH (08:40)
[2018-02-10] MEDS: Enoxaparin Sodium 40 MG/0.4 ML SYRINGE SC SCH (08:40)
[2018-02-10] MEDS: Docusate 100 MG CAP PO SCH (08:40)
[2018-02-10] MEDS: Famotidine 20 MG TAB PO SCH (08:40)
[2018-02-10] MEDS: Metoprolol Tartrate 25 MG TAB PO SCH (08:41)
--- NOTE | 2018-02-10 13:53 | DIS ---
DATE OF ADMISSION: 02/03/2018 DATE OF DISCHARGE: 02/10/2018 PRIMARY CARE PHYSICIAN: [facility]. PRIMARY ONCOLOGIST: Simona Blanca MD DIAGNOSES ON ADMISSION: 1. Small cell carcinoma of the lung, metastatic to the liver. 2. Worsening anasarca. 3. Worsening ascites. DIAGNOSES ON DISCHARGE: 1. Small cell carcinoma of the lung, metastatic. 2. Anasarca, improved with diuresis. 3. Ascites, improved with paracentesis. 4. Anemia due to chemotherapy, status post transfusion, stable. 5. Moderate protein-calorie malnutrition. CONSULTATIONS: Heme/Oncology, Dr. Blanca. PROCEDURES PERFORMED: 1. Ultrasound of the abdomen showing moderate ascites. 2. Ultrasound-guided paracentesis with aspiration of 2515 mL of serosanguinous fluid. 3. Echocardiogram with an EF of 50% to 55%. Technically difficult examination. No other significant abnormalities. PERTINENT LABORATORY DATA: Creatinine has remained normal in spite of diuresis. Potassium has been stable. Albumin is low 2.8 on admission. Hemoglobin 9.1 and stable. SUMMARY OF HOSPITAL COURSE: This is a 68-year-old white male, who complained of generalized weakness, lack of appetite, severe worsening peripheral edema, abdominal swelling, who was seen in Dr. Blanca's office and then sent for admission. He was found to have worsening anasarca and ascites. He had a paracentesis done and also had increased dose of IV Lasix given with good diuresis. His symptoms improved. Dr. Blanca did give him course of chemotherapy in the hospital, and he was doing well by the day of discharge, ambulating and breathing well. We did discuss with him the possibility of home health rather helpful for him at home, he states he does not need that. He is going home with his family he was doing much better with decreased peripheral edema, and he had some persistent ascites, did not have as much pain and was no longer tense. DISCHARGE MANAGEMENT: Disposition: Discharged to home. Activity: As tolerated. Diet: Low-sodium diet. MEDICATIONS: 1. Furosemide 40 mg and 20 mg tablets taken in the morning and night for 60 mg twice a day with a one-month supply. 2. Potassium chloride 20 mEq twice a day. 3. Continue metoprolol 25 mg twice a day. 4. Continue Zofran as needed. 5. Tamoxifen 20 mg daily. 6. Vitamin D3 of 1000 units daily. 7. Vitamin B12 of 1000 mcg daily. 8. Tramadol as needed. 9. Codeine Phosphate/Guaifenesin syrup as needed. 10. Compazine as needed. 11. Tylenol with Codeine No. 3 as needed for pain. FOLLOWUP: The patient is to follow up with Fatemeh Williamson in Oncology office on February 17. TIME SPENT: Time required for preparation of this discharge summary was 35 minutes. Job ID: [id number]
== END 2018-02-10 12:49 | disposition home or self-care (01) | DRG 812 ==
LOC: ONC 14:29
PROVIDERS: ADMIT Family Medicine; ATTEND Family Medicine
PROC: 30233N1 Transfusion of Nonautologous Red Blood Cells into Peripheral Vein, Percutaneous Approach (ICD-10-PCS; principal; 2018-02-03)
PROC: 30233N1 Transfusion of Nonautologous Red Blood Cells into Peripheral Vein, Percutaneous Approach (ICD-10-PCS; 2018-02-03)
PROC: 0W9G3ZX Drainage of Peritoneal Cavity, Percutaneous Approach, Diagnostic (ICD-10-PCS; 2018-02-04)
PROC: B24BZZZ Ultrasonography of Heart with Aorta (ICD-10-PCS; 2018-02-04)
PROC: 3E03305 Introduction of Other Antineoplastic into Peripheral Vein, Percutaneous Approach (ICD-10-PCS; 2018-02-07)
DX: D64.81 Anemia due to antineoplastic chemotherapy (principal); C34.90 Malignant neoplasm of unspecified part of unspecified bronchus or lung; C78.7 Secondary malignant neoplasm of liver and intrahepatic bile duct; E44.0 Moderate protein-calorie malnutrition; R18.8 Other ascites; G62.0 Drug-induced polyneuropathy; T45.1X5A Adverse effect of antineoplastic and immunosuppressive drugs, initial encounter; D63.0 Anemia in neoplastic disease; Z68.33 Body mass index [BMI] 33.0-33.9, adult; Z85.3 Personal history of malignant neoplasm of breast; G89.3 Neoplasm related pain (acute) (chronic); Z92.3 Personal history of irradiation
CPT/HCPCS: 36415; 36416; 36430; 49083; 71045; 76705; 80048; 80053; 82248; 83615; 84100; 84436; 84443; 84550; 85025; 85027; 85610; 85730; 86850; 86900; 86901; 93306; 96377; G8978-GP-CJ; G8979-GP-CI; J1100; J1642; J1650; J1940; J2270; J2405; J2469; J2505; J7050; J9045; J9181; P9016; P9047; S0028

== ENCOUNTER 2018-02-20 00:44 | Inpatient (IN) | payer MEDICARE, MEDICAID ==
[2018-02-20] MEDS ORDERED: Morphine 4 MG/ML VIAL ONE (01:12)
[2018-02-20 02:59] LABS: Band 31 % (5-11); Hemoglobin 6.8 g/dL (14.0-18.0); Lymphocytes 7 % (21-51); MDiff Complete? YES; Mean Corpuscular HGB CONC 34.5 g/dL (32.0-36.0); Mean Corpuscular Hemoglobin 31.6 pg (27.0-31.0); Mean Corpuscular Volume 91.8 fL (78.0-98.0); Mean Platelet Volume 9.7 fL (7.4-10.4); Monocytes 11 % (0-10); Myelocyte 1 % (0-0); Neutrophil 50 % (42-75); Nucleated RBC 2 % (0); Platelet Count 21 thou/uL (130-400); Platelet Morphology Comment Appears Decreased; RBC Distribution Width 14.5 % (11.5-14.5); Red Blood Cell (RBC) Count 2.14 mill/uL (4.70-6.10); White Blood Cell (WBC) Count 6.1 thou/uL (4.8-10.8)
[2018-02-20 03:32] LABS: ALT (SGPT) 19 U/L (8-55); AST (SGOT) 19 U/L (5-34); Albumin 2.6 g/dL (3.4-4.8); Alkaline Phosphatase 109 U/L (40-150); Anion Gap 15 mmol/L (10-20); BUN (Urea Nitrogen) 26 mg/dL (8.4-25.7); Bilirubin, Total 0.8 mg/dL (0.2-1.2); Calc. Creatinine Clearance 0 mL/min (70-130); Calcium 8.4 mg/dL (7.8-10.44); Carbon Dioxide 33 mmol/L (23-31); Chloride 91 mmol/L (98-107); Estimated GFR-MDRD Greater than 90; Globulin 3.6 g/dL (2.4-3.5); Glucose 153 mg/dL (80-115); Lipase 69 U/L (8-78); Magnesium 1.5 mg/dL (1.6-2.6); Potassium 3.4 mmol/L (3.5-5.1); Protein, Total 6.2 g/dL (5.8-8.1); Sodium 136 mmol/L (136-145)
[2018-02-20 03:55] LABS: Bilirubin Negative (Negative); Blood, Urine Negative (Negative); Clarity CLEAR (Clear); Glucose, Urine (Dipstick) Negative (Negative); Leukocyte Negative (Negative); Nitrite Negative (Negative); Protein, Urine (Dipstick) Negative (Neg-Trace); Specific Gravity, Urine 1.032 (1.002-1.036)
[2018-02-20] MEDS ORDERED: cefTRIAXone\\ROCEPHIN 2 GM VIAL ONE (04:55)
[2018-02-20 06:54] LABS: Troponin I 0.024 ng/mL (< 0.028)
--- NOTE | 2018-02-20 07:52 | RAD ---
CHEST 1 VIEW: Date: 02/20/18 HISTORY: Shortness of breath. COMPARISON: 01/17/18. FINDINGS: Port-A-Cath is in place in inferior SVC. Large layering right effusion is markedly increased from com parison examination. Moderate layering left effusion. No pneumothorax. There appears to be a nodule in the right mid lung. IMPRESSION: 1. Worsening right pleural effusion, concerning for malignant effusion. 2. Possible right mid lung mass. 3. Known left lung apex mass, not well seen. POS: [facility]
--- NOTE | 2018-02-20 08:40 | CT ---
PRELIMINARY REPORT/[facility]/EMERG[facility] AFTER-HOURS PROCEDURE CT Angiography Chest With Contrast EXAM DATE/TIME: 02/20/2018 3:09 AM CLINICAL HISTORY: 68 years old, male; Pain and signs and symptoms; Dyspnea and shortness of breath; Chest pain; On fam thing; Patient HX: Maria D 68 presents to ed with progressively worsening SOB. PT has pmh of lung cancer cu rrently being treated by dr. Blanca. Last chemo treatment was on feb 09, since then PT reports worsening malaise and SOB. States that he has had SOB while walking to the bathroom in the co [place] 1-2 days. Denies fever or hemoptysis. Has fu with dr. Blanca thursday. Had radiation treatment for a previous cancer. TECHNIQUE: Axial computed tomographic angiography images of the chest with intravenous contrast using CT angiogr aphy protocol. MIP reconstructed images were created and reviewed. COMPARISON: No relevant prior studies available. FINDINGS: Tubes, catheters and devices: Right chest wall port. Pulmonary arteries: Normal. No pulmonary emboli. Aorta: Normal. No aortic aneurysm. No aortic dissection. Lungs: Complete compressive atelectasis of the right lower lobe and right middle lobe. There is a siz able parenchymal opacity in the periphery of the left upper lobe with some nodularity, some consolida tion density, and some features of scarring/peripheral bronchiolectasis. This may be sequelae of prio r infection or treated malignancy; however, active malignancy or atypical infection is not excluded. Pleural space: Large right pleural effusion. Small left pleural effusion. Heart: Normal. No cardiomegaly. No pericardial effusion. Mediastinum: Esophagus is unremarkable. Liver: Large malignant right lobe hepatic mass. Liver surface nodularity suggest hepatic cirrhosis. Spleen: Splenomegaly. Lymph nodes: Mediastinal, hilar, retroperitoneal, and right upper quadrant abdominal lymphadenopathy, presumably malignant/metastatic. Bones/joints: Unremarkable. No acute fracture. Soft tissues: Unremarkable. IMPRESSION: 1. Mediastinal, hilar, retroperitoneal, and right upper quadrant abdominal lymphadenopathy, presumabl y malignant/metastatic. 2. Large right pleural effusion resulting in complete compressive atelectasis of the right middle lob e and right lower lobe. Small left pleural effusion. 3. There is a sizable parenchymal opacity in the periphery of the left upper lobe with some nodularit y, some consolidation density, and some features of scarring/peripheral bronchiolectasis. This may be sequelae of prior infection or treated malignancy; however, active malignancy or atypical infection is not excluded. 4. Large malignant right lobe hepatic mass. Liver surface nodularity suggest hepatic cirrhosis. 5. Splenomegaly. Thank you for allowing us to participate in the care of your patient. Dictated and Authenticated by: Carlton Gilmore MD 02/20/2018 4:41 AM Central Time ([place] & [place]) FINAL REPORT CT ANGIOGRAM OF CHEST WITH CONTRAST: Date: 02/20/18 HISTORY: Shortness of breath. Cancer. COMPARISON: Chest CT dated 01/17/18. FINDINGS/IMPRESSION: Findings and impression are concordant with the preliminary report by [facility]. There do appear to be mul tiple hypodense masses within the right lobe of the liver suggesting metastatic disease. Right periao rtic mass is slightly size decreased, previously measuring 4.5 cm, now measuring 3.4 cm. Left upper l obe mass is decreased in size with the central left apical mass previously measuring 2.3 cm, now jojo suring 1.5 cm. Large layering right pleural effusion has increased in size. Index right paratracheal lymph node is decreased in size with short axis measuring 12.0 mm, previously 21.0 mm. POS: [facility]
[2018-02-20 08:58] LABS: Troponin I 0.017 ng/mL (< 0.028)
[2018-02-20] MEDS ORDERED: hydrALAZINE 20 MG/ML VIAL SLOW IVP PRN (09:26)
[2018-02-20] MEDS ORDERED: TAMOXIFEN CITRATE 20 MG PO SCH (09:26)
[2018-02-20] MEDS ORDERED: Benzonatate 100 MG CAP PO PRN (09:26)
[2018-02-20] MEDS ORDERED: Non-Formulary Item 1 EACH (Ondansetron Hcl [Zofran] 8 MG) SL PRN (09:26)
[2018-02-20] MEDS ORDERED: Acetaminophen 325 MG TAB PO PRN (09:26)
[2018-02-20 09:57] LABS: Hemoglobin 7.4 g/dL (14.0-18.0); Mean Corpuscular HGB CONC 34.7 g/dL (32.0-36.0); Mean Corpuscular Hemoglobin 31.8 pg (27.0-31.0); Mean Corpuscular Volume 91.6 fL (78.0-98.0); Mean Platelet Volume 8.7 fL (7.4-10.4); Platelet Count 19 thou/uL (130-400); RBC Distribution Width 14.3 % (11.5-14.5); Red Blood Cell (RBC) Count 2.31 mill/uL (4.70-6.10); White Blood Cell (WBC) Count 6.1 thou/uL (4.8-10.8)
[2018-02-20 09:58] LABS: Band 21 % (5-11); Lymphocytes 20 % (21-51); MDiff Complete? YES; Monocytes 2 % (0-10); Neutrophil 56 % (42-75); Platelet Morphology Comment Appears Decreased; Promyelocytes 1 % (0-0); Toxic Granulation SLIGHT
[2018-02-20] MEDS ORDERED: Ondansetron ODT 8 MG TAB PO PRN (10:30)
[2018-02-20 10:43] LABS: Lactic Acid 1.2 mmol/L (0.5-2.2)
[2018-02-20] MEDS ORDERED: Metoprolol Tartrate 25 MG TAB ONE (11:20)
[2018-02-20] MEDS ORDERED: traMADol HCl 50 MG TAB ONE (11:20)
[2018-02-20] MEDS ORDERED: VANCOMYCIN IVPB PRN (13:15)
[2018-02-20] MEDS: Cyanocobalamin (Vitamin B-12) 1,000 MCG TAB PO SCH (13:42)
[2018-02-20] MEDS ORDERED: Heparin 1,000 UNITS/ML VIAL ONE (13:44)
--- NOTE | 2018-02-20 15:06 | HP ---
PRIMARY CARE PHYSICIAN: PEE Hernandez. ONCOLOGIST: Simona Blanca MD. HISTORY OF PRESENT ILLNESS: Mr. 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 He has been undergoing chemotherapy and says that about 2 days after his last chemotherapy, he started feeling bad and says that he started getting extremely short of breath. He says he was barely able to walk to the bathroom and back without getting completely out of breath. He also notes some pain in his back, in his stomach. He also says that he is gotten to the point where he has barely any appetite. He has not been eating any solid foods and only drinking water and Gatorade. He denies having any nausea or vomiting, however. No fever, no chills. He denies any cough. He denies any chest pain, but due to his severe shortness of breath, he came to the ER for evaluation. In the ER, he had a chest x-ray as well as a CT scan of the chest. The chest x-ray demonstrated a large right pleural effusion, and the CT scan of the chest again demonstrated the large right pleural effusion as well as an infiltrate in the left upper lobe. He is being admitted for this. REVIEW OF SYSTEMS: All systems were reviewed and are negative except for that mentioned in the history of present illness. PAST MEDICAL HISTORY: Significant for breast cancer bilateral. He has a BRCA2 deletion. He has atrial fibrillation, small-cell lung cancer with metastasis to the liver. PAST SURGICAL HISTORY: He has had the tumor removal in both breasts, and ablation for atrial fibrillation and a 15 lymph node dissection for the breast cancer. ALLERGIES: NO KNOWN DRUG ALLERGIES. SOCIAL HISTORY: He is . He is a full code. He chews tobacco and drinks about 2 to 3 beers a day. His brother Ridge as well as his sister can act as surrogate decision makers. FAMILY HISTORY: Significant for ovarian cancer in his daughter, who at a young age. His brother had advanced liver cancer. CURRENT MEDICATIONS: He says these are the same as when he was here last admission and include metoprolol extended release 25 mg daily, Compazine 10 mg q.6h. as needed, tramadol 50 mg q.6h. p.r.n., Colace 100 mg daily, furosemide 40 mg twice a day, B12 5000 mcg sublingual daily, Zofran 8 mg ODT, and vitamin D3 5000 mg daily. PHYSICAL EXAMINATION: GENERAL: He is alert and oriented. He appears to be in no acute distress. He is well developed and well nourished. VITAL SIGNS: Blood pressure was 113/66, heart rate 127, respiratory rate of 24, temperature is 98. HEENT: Pupils are equal, round, and reactive. Extraocular muscles are intact. Sclerae anicteric. Throat, there is no erythema, no exudates. NECK: No adenopathy. No bruits. LUNGS: He has coarse, hollow sounding breath sounds and absent breath sounds at the right base. There is no wheezing, no rales. CARDIOVASCULAR: He had a normal S1, S2. I did not appreciate an S3 or S4. No murmurs, clicks, or rubs. ABDOMEN: Obese, it is soft. He does have some mild right upper quadrant tenderness. There is no rebound, no guarding. No organomegaly. EXTREMITIES: He had does have some changes of chronic venous stasis as well as some edema. No calf tenderness. No joint crepitus. NEUROLOGIC: His cranial nerves 2 through 12 are grossly intact. His muscle strength is 5/5 in both his upper and lower extremities. SKIN AND INTEGUMENT: Other than some dry, flaking skin. There are no significant skin changes. No rashes. LABORATORY DATA: On his chest x-ray by my reading, heart size was difficult to determine due to the large pleural effusion. He has complete obscuring of the right hemidiaphragm and air-fluid level going up to almost the complete right lung and a mild haziness in the left upper lobe. This is by my reading. Also, CT scan was reviewed and similar findings and this was also reviewed by me. His other lab work, he had a white blood cell count 6.1, hemoglobin 6.8, hematocrit is 19.6, and platelet count is 21. D-dimer is 8.5. Chemistry; sodium 136, potassium 3.4, chloride is 91, CO2 is 33, BUN of 26, creatinine 0.84, glucose is 153, magnesium is 5.1. Urinalysis is negative. ASSESSMENT: This is a pleasant 68-year-old gentleman who presents with shortness of breath. This is likely an acute respiratory failure due to a large pleural effusion as well as hospital-acquired pneumonia. 1. Full dose for the pleural effusion. This is likely a malignant pleural effusion and we will consult Pulmonology for possible thoracentesis. 2. Pneumonia, likely healthcare associated given his recent hospitalization. Therefore, we will treat with broad-spectrum antibiotics and will also enlist the aid of Pulmonology with regard to antibiotic choice. 3. Atrial fibrillation. His heart rate is slightly elevated, likely due to the respiratory failure. I will continue his usual home medications for this. It appears he is not on anticoagulation at this time. 4. History of lung cancer recently diagnosed. We will consult, his oncologist to help with any recommendations regarding continued treatment and anemia and thrombocytopenia, He has been given a unit of blood in the ER. We will recheck this in the a.m. And with the thrombocytopenia, again, we will check in the a.m. We will hold off on any transfusion unless his platelets fall below 20,000 or if he has any evidence of active bleed. Job ID: [id number]
[2018-02-20 15:12] LABS: Body Fluid Source THORACENTESIS FLD; Clarity Hazy (Clear)
[2018-02-20 15:13] LABS: BF Color Brown; RBC Background Count 0.001; RBC Count-Automated 22000 /cumm; Tube # EDTA; WBC/NonHematic-Auto 2060 /cumm
[2018-02-20 15:20] LABS: Fluid, Triglycerides 48 mg/dL (Not Available); Pleural Fluid, Amylase 44 U/L (Not Available); Pleural Fluid, Glucose Less than 20 mg/dL; Pleural Fluid, LDH 423 U/L (Not Available)
[2018-02-20 15:46] LABS: BF Segmented Neutrophils 97 %; Cell Count Non Hematic 2 %; Lymphocytes 1 %
--- NOTE | 2018-02-20 16:21 | CON ---
DATE OF CONSULTATION: 02/20/2018 CONSULTING PHYSICIAN: Foster Vogel MD The following encompassed 70 minutes of the time, of that time, greater than 50% was spent with the patient and/or the patient's unit in the hospital. REASON FOR CONSULTATION: Pleural effusion. HISTORY OF PRESENT ILLNESS: Mr. Sanchez is a 68-year-old male, who presents today with shortness of breath that has been increasing over the last several days. He has a history of small cell lung cancer with peritoneal, liver, and lung metastasis. I believe he has had malignant ascites in the past. He had chemotherapy around . He has severe shortness of breath with exertion and it is somewhat held by an upright posture. PAST MEDICAL HISTORY: 1. Small cell lung cancer, extensive stage. 2. Stage III breast cancer, requiring mastectomy. 3. Hyperlipidemia. 4. Hypertension. 5. Obesity. 6. Smokeless tobacco use. MEDICATIONS: Prior to admission; 1. Tramadol 50 mg every 6 hours as needed. 2. Tamoxifen 20 mg daily. 3. Ondansetron 8 mg sublingual every 8 hours as needed. 4. Metoprolol 25 mg b.i.d. 5. Vitamin B12 of 1000 mcg daily. 6. Compazine 10 mg every 6 hours as needed. 7. Potassium chloride 20 mEq b.i.d. 8. Furosemide 40 mg b.i.d. 9. Guaifenesin with codeine 5 mL every 4 hours as needed. 10. Vitamin D3 of 1000 units orally daily. 11. Tylenol with Codeine 1 tablet every 6 hours as needed. ALLERGIES: NONE. SOCIAL HISTORY: Remarkable for smokeless tobacco use. He has never smoked cigarettes. Does not consume any significant quantity of alcohol. Does not use illicit drugs other than what is prescribed for his pain. FAMILY MEDICAL HISTORY: Remarkable for ovarian cancer in the patient's daughter. REVIEW OF SYSTEMS: Remarkable for shortness of breath. No fever or chills. He has had some nausea, some vomiting. No hematemesis, melena, or hematochezia. No hematuria. No dysuria. PHYSICAL EXAMINATION: VITAL SIGNS: The only vital signs I have are from what was at the bedside, O2 sat was running about 95% on 4 L, pulse 100, and blood pressure 120/70. GENERAL: The patient is awake, alert, communicative and generally, he appears chronically ill. HEENT: Sclerae are anicteric. Oropharynx, dry oral mucous membranes. NECK: No adenopathy, JVD, or bruits. LUNGS: He has globally diminished breath sounds in the right base with dullness to percussion in the right base. Left side is clear. CARDIOVASCULAR: S1 and S2, regular without murmur. ABDOMEN: Somewhat protuberant, but no profound ascites noted. EXTREMITIES: No clubbing, cyanosis, or edema. LABORATORY DATA: White blood cell count 6.1, hemoglobin 7.4, hematocrit 21.2, and platelet count 19. D-dimer 8.5. Sodium 136, potassium 3.4, chloride 91, CO2 of 33, BUN 26, creatinine 0.8, and glucose 153. Lactate 2.6. Troponin 0.017. BNP 114. IMAGING DATA: I reviewed the CT scan personally. He has a fairly sizable right pleural effusion with some complexity. ASSESSMENT: 1. Metastatic small cell lung cancer. 2. Probable malignant effusion. 3. Severe thrombocytopenia. PLAN: 1. Thoracentesis is indicated for therapeutic purposes. However, his platelet count is quite low and he needs to receive a perioperative platelet transfusion. This has been ordered and I have instructed the nurse to call me when the platelets are hung, so that we can perform the procedure. The risks of the procedure were discussed with the patient including bleeding, infection, external lung puncture. He is agreeable to proceed. 2. Further orders per the hospitalist team. I would encourage involvement of the patient's oncologist as his prognosis is quite poor with this. Job ID: [id number]
[2018-02-20] MEDS ORDERED: ISOVUE-370 76%-LOCM 1 ML ONE (17:06)
[2018-02-20] MEDS: Cefepime 1 GM in Sodium Chloride 0.9% 100 ML IVPB SCH ×2 (17:42→23:31)
[2018-02-20] MEDS: Vancomycin HCl 1 GM in Premix Bag 1 BAG IVPB SCH ×3 (17:42→17:46)
[2018-02-20] MEDS: traMADol HCl 50 MG TAB PO PRN ×2 (17:46→23:30)
--- NOTE | 2018-02-20 21:00 | OP ---
DATE OF PROCEDURE: 02/20/2018 PROCEDURE PERFORMED: Right thoracentesis. PREOPERATIVE DIAGNOSIS: Right pleural effusion. POSTOPERATIVE DIAGNOSIS: Right pleural effusion. ANESTHESIA: 1% lidocaine without epinephrine. DESCRIPTION OF PROCEDURE: patient's informed consent. He was placed in sitting position. The fifth and sixth interspace of the right midscapular line were cleansed with chlorhexidine and draped sterilely. The patient was receiving a platelet transfusion intraoperatively. A Mnrd-A-Ilkdpcnd catheter was inserted into the pleural space, approximately 200 mL of red tinged fluid was removed. It was very proteinaceous. I could not get anything to drain beyond that. Quick ultrasound was done at the site showed significant effusion, but numerous septated regions to this effusion indicating that it is complex, likely malignant. The plan will be to send the fluid for cytology. If the cytology is negative, then further exploration with thoracoscopy could be considered. Job ID: [id number]
[2018-02-21] MEDS: Vancomycin HCl 1 GM in Premix Bag 1 BAG IVPB SCH ×2 (06:18→17:06)
[2018-02-21 07:43] LABS: Anion Gap 12 mmol/L (10-20); BUN (Urea Nitrogen) 20 mg/dL (8.4-25.7); Calc. Creatinine Clearance 138 mL/min (70-130); Calcium 8.8 mg/dL (7.8-10.44); Carbon Dioxide 33 mmol/L (23-31); Chloride 93 mmol/L (98-107); Estimated GFR-MDRD Greater than 90; Glucose 158 mg/dL (80-115); Potassium 3.4 mmol/L (3.5-5.1); Sodium 135 mmol/L (136-145)
[2018-02-21 08:06] LABS: Band 23 % (5-11); Hemoglobin 7.6 g/dL (14.0-18.0); Lymphocytes 10 % (21-51); MDiff Complete? YES; Mean Corpuscular HGB CONC 34.5 g/dL (32.0-36.0); Mean Corpuscular Hemoglobin 31.8 pg (27.0-31.0); Mean Corpuscular Volume 92.4 fL (78.0-98.0); Mean Platelet Volume 8.2 fL (7.4-10.4); Metamyelocyte 2 % (0-0); Monocytes 4 % (0-10); Neutrophil 61 % (42-75); Nucleated RBC 3 % (0); Platelet Count 35 thou/uL (130-400); RBC Distribution Width 14.7 % (11.5-14.5); Red Blood Cell (RBC) Count 2.38 mill/uL (4.70-6.10); Toxic Granulation SLIGHT; White Blood Cell (WBC) Count 8.4 thou/uL (4.8-10.8)
[2018-02-21] MEDS: Cyanocobalamin (Vitamin B-12) 1,000 MCG TAB PO SCH (08:38)
[2018-02-21] MEDS: traMADol HCl 50 MG TAB PO PRN ×2 (08:44→17:07)
--- NOTE | 2018-02-21 11:44 | PRG ---
DATE OF SERVICE: 02/21/2018 SUBJECTIVE: The patient is doing reasonably well as long as he is sitting in the upright position. OBJECTIVE: VITAL SIGNS: Temperature 97.7, pulse 113, respirations 20, O2 saturation 99% on 2 L, and blood pressure 113/55. HEENT: Unremarkable. NECK: No JVD. LUNGS: Diminished breath sounds at the right base. Dullness to percussion at the right base. Left side is clear. CARDIAC: S1 and S2. Regular. ABDOMEN: Distended. EXTREMITIES: No edema. LABORATORY DATA: White blood cell count 8.4, hematocrit 22, platelet count 35. Sodium 135, potassium 3.4, chloride 93, CO2 of 33, BUN 20, creatinine 0.7, glucose 158. Thoracentesis fluid showed elevated LDH, glucose less than 20, differential that was more neutrophilic. Cytology of course is pending. The Gram stain of the fluid showed no organisms. ASSESSMENT: I suspect he probably has a malignant pleural effusion from metastatic lung cancer. Unfortunately, I could not get much fluid out secondary to septation in the effusion. RECOMMENDATIONS: Await cytology. Unfortunately, if this is malignant, there will not be much in the way of treatment that can be offered. He is continuing antibiotics. If for some reason, the picture looks more like an empyema by cytology, then we could consider thoracoscopy. This plan was discussed with the family. Job ID: [id number]
[2018-02-21] MEDS: Cefepime 1 GM in Sodium Chloride 0.9% 100 ML IVPB SCH ×2 (12:33→23:50)
--- NOTE | 2018-02-21 12:34 | PDOC.PN ---
- Subjective Encounter Start Date: 02/21/18 Encounter Start Time: 12:32 Mr. Sanchez was seen today in follow-up of acute respiratory failure due to pleural effusion. He says he felt better after the thorocentesis yesterday, but [facility] he is very short of breath again. He denies any pain. - Objective Resuscitation Status - Order Detail: 02/20/18 08:07 Resuscitation Status Routine Resuscitation Status: FULL: Full Resuscitation MAR Reviewed: Yes Vital Signs & Weight: Vital Signs (12 hours) Temp Pulse Resp BP BP Pulse Ox 02/21/18 12:02 97.6 F 108 H 20 108/55 L 100 02/21/18 08:33 97.7 F 113 H 20 113/55 L 99 02/21/18 08:00 100 02/21/18 04:00 97.5 F L 107 H 18 106/61 99 Weight Weight 227 lb 6.4 oz I&O: 02/20/18 02/21/18 02/22/18 06:59 06:59 06:59 Intake Total 692 Output Total 405 Balance 287 Result Diagrams: 02/21/18 07:16 02/21/18 07:16 Phys Exam - Physical Examination HEENT: PERRLA Respiratory: no wheezing, no rales decreased breath sounds in the right lung + occasional rhonchi Cardiovascular: RRR, no significant murmur, no rub Gastrointestinal: soft, non-tender, no distention, positive bowel sounds Musculoskeletal: pulses present, edema present 1+ lower extremity edema Neurological: non-focal Dx/Plan (1) Pleural effusion, right Code(s): J90 - PLEURAL EFFUSION, NOT ELSEWHERE CLASSIFIED Status: Acute (2) Acute respiratory failure with hypoxemia Code(s): J96.01 - ACUTE RESPIRATORY FAILURE WITH HYPOXIA Status: Acute (3) Small cell carcinoma of lung Code(s): C34.90 - MALIGNANT NEOPLASM OF UNSP PART OF UNSP BRONCHUS OR LUNG Status: Chronic Comment: Last Chemo treatment 02/09/18, Dr. Blanca following (4) Thrombocytopenia Code(s): D69.6 - THROMBOCYTOPENIA, UNSPECIFIED Status: Chronic (5) Anemia Code(s): D64.9 - ANEMIA, UNSPECIFIED Status: Chronic Qualifiers: Anemia type: other cause Other causes of anemia: antineoplastic chemotherapy Qualified Code(s): D64.81 - Anemia due to antineoplastic chemotherapy; T45.1X5A - Adverse effect of antineoplastic and immunosuppressive drugs, initial encounter Comment: S/P transfusion PRBC x 2. Hb stable (6) HTN (hypertension) Code(s): I10 - ESSENTIAL (PRIMARY) HYPERTENSION Status: Chronic - Plan * Acute respiratory failure due to a large Right pleural effusion- he is post thorocentesis- will await pathology * Some fluid is remaining- futher recommendations after the results are avail from pathology * Small cell lung cancer- Oncology has been consulted * Anemia- his H&H is better- will observe * Thrombocytopenia- improved after transfusion.
[2018-02-21 17:43] LABS: Vancomycin, Trough 12.2 ug/mL
[2018-02-21] MEDS ORDERED: Vancomycin HCl 500 MG in Sodium Chloride 0.9% 100 ML IVPB SCH (19:00)
--- NOTE | 2018-02-22 04:31 | CON ---
DATE OF CONSULTATION: 02/20/2018 HISTORY OF PRESENT ILLNESS: Mr. 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 The patient started to feel bad 2 to 3 days prior to hospitalization. He developed progressive shortness of breath and extreme weakness and anorexia and was admitted with fatigue, extreme shortness of breath, and abdominal pain on 02/20. Chest x-ray and CT scan of the chest showed a large right pleural effusion and infiltrate in the left upper lobe. He has been evaluated by Dr. Chandler, who attempted thoracentesis, but got only a small amount of fluid because of septation. The patient says he is feeling better when I saw him with less shortness of breath. He denied fever or hemoptysis. The patient was diagnosed and treated for T2 N3 M0, ER/MN positive and HER2 negative carcinoma of the left breast. He was treated with dose-dense chemotherapy, mastectomy, and radiation therapy. PAST MEDICAL HISTORY: 1. Breast cancer with BRCA2 deletion as discussed above. 2. He also has history of atrial fibrillation. Drugs with adverse effect, none. PERSONAL AND SOCIAL HISTORY: He is . He did not give history of smoking. FAMILY HISTORY: Positive for ovarian cancer in his daughter and his brother had liver cancer. REVIEW OF SYSTEMS: The patient admits to very poor appetite. He is short of breath but he has very limited out of bed activity. He denies any headache and unequal extremity weakness. PHYSICAL EXAMINATION: GENERAL: The patient is alert and oriented and in orey-so-avlmeqob discomfort due to shortness of breath. VITAL SIGNS: Temperature 97.9, pulse 123, and blood pressure 119/56. HEENT: Unremarkable. NECK: There is no peripheral lymphadenopathy. CHEST: Shows impaired percussion note and breath sound in the right lower hemithorax. HEART: Tachycardia. S1 and S2. ABDOMEN: Full bowel sounds present. EXTREMITIES: 1+ pedal edema. LABORATORY RESULTS: CBC showed WBC of 6100, hemoglobin 6.8, and platelet count of 21,000. Differentials show 50% neutrophils, 31% band, and 7% lymphocytes. Chemistry profile shows normal sodium, potassium 3.4, BUN 26, and creatinine 0.84. Calcium 8.4. IMAGING STUDIES: Chest x-ray and CT have been sent on behalf. ASSESSMENT: This patient has a neuroendocrine tumor with involvement of lung, mediastinum, and liver. He is anemic and thrombocytopenic from chemotherapy. His main issue at this time is pleural effusion, which unfortunately could not be drained to any significant extend because of septation. He will receive packed red blood cell transfusion and another supportive care. Cytology is pending on the pleural fluid which could be potentially from breast cancer or from the neuroendocrine tumor. Prognosis remains guarded. Job ID: [id number]
[2018-02-22] MEDS: Vancomycin HCl 1.5 GM in Sodium Chloride 0.9% 250 ML 300 ML IVPB SCH ×2 (05:42→17:42)
[2018-02-22 08:43] LABS: Hemoglobin 7.1 g/dL (14.0-18.0); Mean Corpuscular HGB CONC 33.4 g/dL (32.0-36.0); Mean Corpuscular Hemoglobin 31.1 pg (27.0-31.0); Mean Corpuscular Volume 93.1 fL (78.0-98.0); Mean Platelet Volume 8.6 fL (7.4-10.4); Platelet Count 53 thou/uL (130-400); RBC Distribution Width 14.7 % (11.5-14.5); Red Blood Cell (RBC) Count 2.29 mill/uL (4.70-6.10); White Blood Cell (WBC) Count 12.3 thou/uL (4.8-10.8)
[2018-02-22 08:58] LABS: Anion Gap 13 mmol/L (10-20); BUN (Urea Nitrogen) 20 mg/dL (8.4-25.7); Calc. Creatinine Clearance 125 mL/min (70-130); Calcium 9.1 mg/dL (7.8-10.44); Carbon Dioxide 32 mmol/L (23-31); Chloride 92 mmol/L (98-107); Estimated GFR-MDRD 90; Glucose 187 mg/dL (80-115); Potassium 3.7 mmol/L (3.5-5.1); Sodium 133 mmol/L (136-145)
[2018-02-22] MEDS: traMADol HCl 50 MG TAB PO PRN ×2 (09:15→18:17)
[2018-02-22] MEDS: Cyanocobalamin (Vitamin B-12) 1,000 MCG TAB PO SCH (09:15)
[2018-02-22 10:14] LABS: Band 31 % (5-11); Lymphocytes 3 % (21-51); MDiff Complete? YES; Metamyelocyte 1 % (0-0); Monocytes 5 % (0-10); Neutrophil 60 % (42-75); Platelet Morphology Comment Appears Decreased; Polychromasia MODERATE = 3-4 cells (100X) (0-2/hpf)
--- NOTE | 2018-02-22 10:30 | PRG ---
DATE OF SERVICE: 02/22/2018 PULMONARY CRITICAL CARE PROGRESS NOTE SUBJECTIVE: The patient feels somewhat better. He still cannot lay down flat. OBJECTIVE: VITAL SIGNS: Temperature is 98.7, pulse 107, respirations 21, O2 saturation 98% on 3 L, and blood pressure 107/59. HEENT: Unremarkable. NECK: No JVD. LUNGS: He has diminished breath sounds on the right compared to left. CARDIAC: S1 and S2, regular. ABDOMEN: Soft. EXTREMITIES: No edema. LABORATORY DATA: His pleural fluid is growing out Gram-negative rods after the initial Gram stain showed no organisms. Sodium is 133, potassium 3.7, chloride 92, CO2 of 32, BUN 20, creatinine 0.9, glucose 187. ASSESSMENT: The patient has left-sided empyema. I was trying to hold off and see if this is malignant because the cytology was not back yet; however, the culture is now growing Gram-negative rods. It is conceivable that he could have malignancy and mini empyema. Certainly, the appearance of the pleural fluid with neutrophilic predominance would suggest this is more infection than malignancy. PLAN: I will ask Dr. Quinteros from Cardiovascular Surgery to evaluate for possible decortication. I do not think a chest tube was an option given the septation that was seen on ultrasound and the lack of adequate drainage with thoracentesis. Job ID: [id number]
[2018-02-22] MEDS: Cefepime 1 GM in Sodium Chloride 0.9% 100 ML IVPB SCH (11:07)
--- NOTE | 2018-02-22 13:13 | PQF ---
DATE: 02-23-18 ATTN: DR. MC Please exercise your independent, professional judgment in responding to the clarification form. Clinical indicators are provided on the bottom of this form for your review Please check appropriate box(s) to clarify if the following diagnosis has been ruled in or ruled out: SEPSIS [ x ] Ruled in diagnosis [ x ] Continue to treat [ ] Resolved [ ] Ruled out diagnosis [ ] Other diagnosis [ ] Unable to determine In addition, please specify: Present on Admission (POA): [ x ] Yes [ ] No [ ] Unable to determine For continuity of documentation, please document condition throughout progress notes and discharge summary. Thank You. CLINICAL INDICATORS - SIGNS / SYMPTOMS / LABS ER: R SIDED PLEURAL EFFUSION, ACUTE ANEMIA, HYPOXIA, SEPSIS, THROMBOCYTOPENIA H&P: ACUTE RESPIRATORY FAILURE DUE TO A LARGE PLEURAL EFFUSION [facility]AC[facility] PNEUMONIA WBC: 02-22-18: 12.3 BANDS: 02-20-18: 31 02-20-18: 21 02-21-18: 23 02-22-18: 31 LACTIC ACID: 02-20-18: 2.6 PULSE: 02-20-18: 123 02-21-18: 107, 113, 108, 116, 108 02-22-18: 102, 107 RISK FACTORS: ER: R SIDED PLEURAL EFFUSION, ACUTE ANEMIA, HYPOXIA, SEPSIS, THROMBOCYTOPENIA H&P: ACUTE RESPIRATORY FAILURE DUE TO A LARGE PLEURAL EFFUSION [facility]-ACQU[facility] PNEUMONIA TREATMENTS: ER: VANCOMYCIN IV, MAXIPIME IV, CIPRO IV, CEFTRIAXONE, IVF (This form is maintained as a part of the permanent medical record) 2014 [employer]. All Rights Reserved DEBORAH [email or web address] Office: [phone] MERY
--- NOTE | 2018-02-22 15:52 | PDOC.PN ---
- Subjective Encounter Start Date: 02/22/18 Encounter Start Time: 10:00 Mr. Sanchez was seen today in follow-up of acute respiratory failure. He says he is a little better today - Objective Resuscitation Status - Order Detail: 02/20/18 08:07 Resuscitation Status Routine Resuscitation Status: FULL: Full Resuscitation MAR Reviewed: Yes Vital Signs & Weight: Vital Signs (12 hours) Temp Pulse Resp BP BP Pulse Ox 02/22/18 12:55 97.9 F 94 19 99/54 L 100 02/22/18 08:55 98.7 F 107 H 21 H 107/59 L 98 02/22/18 04:00 98 F 102 H 16 106/55 L 96 Weight Admit Weight 230 lb 1 oz Weight 230 lb 9.6 oz I&O: 02/21/18 02/22/18 02/23/18 06:59 06:59 06:59 Intake Total 692 1950 Output Total 405 1275 Balance 287 675 Result Diagrams: 02/22/18 08:22 02/22/18 08:22 Phys Exam - Physical Examination HEENT: PERRLA Respiratory: no wheezing decreased breath sounds almost entire right lung Cardiovascular: RRR, no significant murmur, no rub + mildly tachycardic Gastrointestinal: soft, non-tender, no distention, positive bowel sounds Musculoskeletal: pulses present, edema present + trace pedal edema Dx/Plan (1) Pleural effusion, right Code(s): J90 - PLEURAL EFFUSION, NOT ELSEWHERE CLASSIFIED Status: Acute (2) Acute respiratory failure with hypoxemia Code(s): J96.01 - ACUTE RESPIRATORY FAILURE WITH HYPOXIA Status: Acute (3) Small cell carcinoma of lung Code(s): C34.90 - MALIGNANT NEOPLASM OF UNSP PART OF UNSP BRONCHUS OR LUNG Status: Chronic Comment: Last Chemo treatment 02/09/18, Dr. Blanca following (4) Thrombocytopenia Code(s): D69.6 - THROMBOCYTOPENIA, UNSPECIFIED Status: Chronic (5) Anemia Code(s): D64.9 - ANEMIA, UNSPECIFIED Status: Chronic Qualifiers: Anemia type: other cause Other causes of anemia: antineoplastic chemotherapy Qualified Code(s): D64.81 - Anemia due to antineoplastic chemotherapy; T45.1X5A - Adverse effect of antineoplastic and immunosuppressive drugs, initial encounter Comment: S/P transfusion PRBC x 2. Hb stable (6) HTN (hypertension) Code(s): I10 - ESSENTIAL (PRIMARY) HYPERTENSION Status: Chronic - Plan * Acute respiratory failure- likely due to the large Pleural effusion * Fluid from the effusion is growing a gram negative shar- this may be a parapneumonic effusion vs. malignant- will continue Vancomycin and Cefepime . Await Cytology * HTN- blood pressure is low normal * Anemia and Thrombocytopenia- from chemotherapy- transfuse as needed * Small Cell Lung Cancer
[2018-02-22] MEDS ORDERED: Furosemide 40 MG/4 ML VIAL SLOW IVP SCH (20:30)
--- NOTE | 2018-02-22 23:03 | CON ---
DATE OF CONSULTATION: 02/22/2018 REASON FOR CONSULTATION: Evaluate patient with a right empyema. HISTORY OF PRESENT ILLNESS: Mr. Sanchez is a 68-year-old gentleman with a history of small-cell lung cancer, who recently underwent chemotherapy. He has peritoneal liver and lung metastases, presented with shortness of breath and underwent a thoracentesis by Dr. Chandler, only 200 mL of fluid was able to be evacuated. It was very thick and proteinaceous in nature. It was not bloody. On a CT scan, he has at least a L to a L and a half of fluid in his right chest. This was unable to be evacuated with a thoracentesis catheter. I have been asked to see him to decorticate him and clean out his chest. Due to his recent chemotherapy, he currently has a hemoglobin of 7.1 and a platelet count of 53,000. He will be transfused 2 units of blood tonight and will receive platelets on the way to the OR tomorrow. PAST MEDICAL HISTORY: 1. Small cell lung cancer-stage IV. 2. History of previous mastectomy for stage III breast cancer. 3. Dyslipidemia. 4. Hypertension. 5. Obesity. 6. Smokeless tobacco use. CURRENT MEDICATIONS: At home were noted. ALLERGIES: NONE. SOCIAL HISTORY: He has never used cigarettes. He does have a history of smokeless tobacco use. He does not drink as significant quantity of alcohol. REVIEW OF SYSTEMS: A 10-point review of systems is performed. The only positive is for shortness of breath. PHYSICAL EXAMINATION: GENERAL: This is a well-developed, well-nourished man, resting comfortably in bed. VITAL SIGNS: Height 6 feet, weight is 230 pounds, BSA is 2.31, temperature is 97.9, pulse is 100, blood pressure is 92/55. HEENT: Sclerae nonicteric. Pupils are equal and round bilaterally. NECK: Supple. CHEST: Clear with diminished breath sounds over the right chest. ABDOMEN: Soft and nontender. ASSESSMENT AND PLAN: Right-sided empyema for decortication thoracoscopically. We will transfuse him blood tonight and platelets prior to going the OR. Job ID: [id number]
[2018-02-23] MEDS: Cefepime 1 GM in Sodium Chloride 0.9% 100 ML IVPB SCH ×3 (00:06→22:17)
[2018-02-23 05:41] LABS: Vancomycin, Trough 31.3 ug/mL
[2018-02-23 06:14] LABS: Band 22 % (5-11); Hemoglobin 10.3 g/dL (14.0-18.0); Lymphocytes 5 % (21-51); MDiff Complete? YES; Mean Corpuscular Hemoglobin 31.1 pg (27.0-31.0); Mean Corpuscular Volume 91.6 fL (78.0-98.0); Mean Platelet Volume 8.2 fL (7.4-10.4); Monocytes 6 % (0-10); Neutrophil 67 % (42-75); Nucleated RBC 1 % (0); Platelet Count 43 thou/uL (130-400); Platelet Morphology Comment Appears Decreased; RBC Distribution Width 14.2 % (11.5-14.5); Red Blood Cell (RBC) Count 3.31 mill/uL (4.70-6.10); White Blood Cell (WBC) Count 10.8 thou/uL (4.8-10.8)
[2018-02-23 07:52] VITALS: BP 111/65
[2018-02-23 08:07] VITALS: BMI 31.6
[2018-02-23] MEDS: Cyanocobalamin (Vitamin B-12) 1,000 MCG TAB PO SCH (09:31)
--- NOTE | 2018-02-23 10:36 | PRG ---
DATE OF SERVICE: 02/23/2018 SUBJECTIVE: Actually, he feels a little better today. He is scheduled for a thoracoscopy later today. OBJECTIVE: VITAL SIGNS: Temperature 97.6, pulse 100, respirations 17, O2 saturation 97% on 3 L, and blood pressure 111/65. HEENT: Unremarkable. NECK: No JVD. LUNGS: Almost absent breath sounds on right lower half of his chest. CARDIAC: S1 and S2, regular. ABDOMEN: Soft. EXTREMITIES: No edema. LABORATORY DATA: White blood cell count 10.9, hematocrit 30.3, and platelet count 43. Sodium 133, potassium 3.7, BUN 20, creatinine 0.8, and glucose 187. The final organism identification from the pleural fluid is pending. The pleural fluid cytology is pending. ASSESSMENT: 1. Right-sided empyema. 2. Small cell lung cancer. 3. Breast cancer. PLAN: 1. Thoracoscopic decortication later today. 2. The patient is continuing IV antibiotics. The vancomycin likely can be discontinued depending on the results of surgery today. Job ID: [id number]
[2018-02-23] MEDS ORDERED: Fentanyl 100 MCG/2 ML VIAL ONE ×3 (12:10→17:41)
[2018-02-23] MEDS ORDERED: Glycopyrrolate 0.2 MG/ML 5 ML SYRINGE ONE (12:44)
[2018-02-23] MEDS ORDERED: Lidocaine 1% PF 5 ML VIAL ONE (12:44)
[2018-02-23] MEDS ORDERED: Dexamethasone 20 MG/5 ML VIAL ONE (12:44)
[2018-02-23] MEDS ORDERED: Succinylcholine Chloride 20 MG/ML 10 ml SYRINGE FS ONE (12:44)
[2018-02-23] MEDS ORDERED: Calcium Chloride 1 GM/10 ML Abboject SYRINGE ONE (12:44)
[2018-02-23] MEDS ORDERED: PROPOFOL 200 MG/20 ML VIAL ONE (12:44)
[2018-02-23] MEDS ORDERED: PHENYLEPHRINE-NS 100 MCG/ML 10 ML SYRINGE ONE (12:44)
[2018-02-23] MEDS ORDERED: ePHEDrine/0.9% NaCl/PF SYRINGE 50 mg/10 ml ONE (12:44)
[2018-02-23] MEDS ORDERED: Bupivacaine HCl 0.5%/Epinephrine 1:200,000/PF 30 ml Vial ONE (12:50)
[2018-02-23] MEDS ORDERED: Albumin 5% 500 ML ONE (13:33)
[2018-02-23] MEDS ORDERED: Ondansetron HCl/PF 4 MG/2 ML Vial IVP PRN (14:22)
[2018-02-23] MEDS ORDERED: Promethazine HCl 25 MG/ML VIAL IM PRN ×2 (14:22→15:21)
[2018-02-23] MEDS ORDERED: Promethazine HCl 25 MG/ML VIAL SLOW IVP PRN (14:22)
[2018-02-23] MEDS ORDERED: Morphine 4 MG/ML VIAL SLOW IVP PRN ×2 (15:21)
[2018-02-23] MEDS ORDERED: HYDROcodone/Acetaminophen 5/325 mg Tablet PO PRN ×2 (15:21)
[2018-02-23] MEDS ORDERED: Norepinephrine 8 MG/0.9% NS 250 ML ONE (16:25)
[2018-02-23] MEDS ORDERED: Norepinephrine 8 MG/0.9% NS 250 ML IVPB SCH (16:30)
[2018-02-23] MEDS: Sodium Chloride 0.9% 1,000 ML IV SCH (16:55)
--- NOTE | 2018-02-23 17:00 | RAD ---
SINGLE VIEW OF THE CHEST: 02/23/18 COMPARISON: 02/20/18 HISTORY: Status post thoracotomy. FINDINGS: Single view of the chest shows an enlarged but stable cardiomediastinal silhouette. The Mediport is u nchanged in position. The patient is status post right thoracotomy with two right sided chest tubes. No pneumothorax is seen. There is a small right pleural effusion. IMPRESSION: Status post right thoracotomy with small right pleural effusion. POS: [facility]
[2018-02-23] MEDS ORDERED: Fentanyl 100 MCG/2 ML VIAL SLOW IVP PRN (17:50)
[2018-02-23] MEDS ORDERED: diphenhydrAMINE 50 MG/ML VIAL IVP PRN (17:53)
[2018-02-23] MEDS ORDERED: Zolpidem Tartrate 5 MG TAB PO PRN (17:53)
[2018-02-23] MEDS ORDERED: Ondansetron PF 4 MG/2 ML Vial IVP PRN (17:53)
[2018-02-23] MEDS ORDERED: diphenhydrAMINE 50 MG/ML VIAL IM PRN (17:53)
[2018-02-23] MEDS ORDERED: Naloxone HCl 0.4 mg/ml Vial IV PRN (17:53)
[2018-02-23] MEDS ORDERED: diphenhydrAMINE 25 MG CAP PO PRN (17:53)
[2018-02-23] MEDS ORDERED: Communication Order-Pharmacy FS SCH (18:00)
[2018-02-23] MEDS: HYDROmorphone 10 mg/100 ml CADD IVPB PRN (19:07)
--- NOTE | 2018-02-23 21:51 | OP ---
DATE OF PROCEDURE: 02/23/2018 PREOPERATIVE DIAGNOSIS: Right empyema. POSTOPERATIVE DIAGNOSIS: Right empyema. PROCEDURES PERFORMED: Right thoracoscopy converted to thoracotomy and total pulmonary decortication. FINDINGS: Multiloculated thick peeled cavity. There was significant fluid-1.5 L plus within the cavity. ESTIMATED BLOOD LOSS: 500 mL. DRAINS: 32-Martiniquais chest tubes x2. DESCRIPTION OF PROCEDURE: After consent was obtained, the patient was brought to the operating room, placed in the supine position on the operating table. Appropriate landmarks were placed and general endotracheal anesthesia was induced. The patient was placed in the right lateral decubitus position. Flexible fiberoptic bronchoscopy was used to confirm the endotracheal tube positioning. The right chest wall was prepped and draped in usual sterile fashion. The two port sites were made for instrumentation. Camera was inserted into the posterior port and there was a large amount of fluid, which was evacuated. After evacuating the fluid, there was obvious multiple loculations, which were begun to take down with ring forceps. As we took them down, there was some bleeding from the chest wall, which made further debridement impossible. The posterior port was then widened and retractor was placed. The ribs were spread. Both the finger and sharp dissection were used to completely dissect the peel from the lung and bring the lung off the chest wall. Upper, middle and lower lobes were freed. The lung was inflated and filled the chest cavity nicely. Hemostasis was ensured. Chest was copiously irrigated with 5 L of saline. 32-Martiniquais chest tubes x2 were placed. The ribs were reapproximated with #1 Vicryl. Wounds were then irrigated and closed in multiple layers and the clips were applied to the skin. The patient was awakened, extubated, and transferred to the recovery room in stable condition. Needle, sponge, and instrument counts were all reported as correct at the end of the procedure. Job ID: [id number]
[2018-02-24] MEDS: Sodium Chloride 0.9% 1,000 ML IV SCH ×3 (00:51→11:17)
[2018-02-24 05:33] LABS: Vancomycin, Random 13.9 ug/mL (See Comment)
[2018-02-24 05:37] LABS: Anion Gap 10 mmol/L (10-20); BUN (Urea Nitrogen) 22 mg/dL (8.4-25.7); Calc. Creatinine Clearance 103 mL/min (70-130); Calcium 8.6 mg/dL (7.8-10.44); Carbon Dioxide 33 mmol/L (23-31); Chloride 96 mmol/L (98-107); Estimated GFR-MDRD 71; Glucose 223 mg/dL (80-115); Potassium 4.1 mmol/L (3.5-5.1); Sodium 135 mmol/L (136-145)
[2018-02-24 06:25] LABS: Anisocytosis SLIGHT = 6-15 cells (100X) (0-5/hpf); Band 33 % (5-11); Hemoglobin 7.7 g/dL (14.0-18.0); Lymphocytes 3 % (21-51); MDiff Complete? YES; Mean Corpuscular HGB CONC 33.6 g/dL (32.0-36.0); Mean Corpuscular Hemoglobin 30.5 pg (27.0-31.0); Mean Corpuscular Volume 90.8 fL (78.0-98.0); Mean Platelet Volume 7.1 fL (7.4-10.4); Monocytes 8 % (0-10); Neutrophil 56 % (42-75); Platelet Count 121 thou/uL (130-400); RBC Distribution Width 14.7 % (11.5-14.5); Red Blood Cell (RBC) Count 2.52 mill/uL (4.70-6.10)
[2018-02-24] MEDS ORDERED: Sodium Chloride 0.9% 1,000 ML IV SCH (07:15)
[2018-02-24] MEDS ORDERED: Vancomycin HCl 1 GM in Premix Bag 1 BAG IVPB SCH (08:00)
--- NOTE | 2018-02-24 09:18 | RAD ---
PORTABLE SEMIUPRIGHT FRONTAL CHEST RADIOGRAPH: Date: 02/24/18 COMPARISON: 02/23/18. HISTORY: Evaluate chest following thoracotomy. FINDINGS: There is a lateral right-sided chest tube in place. There is a Port-A-Cath on the right, stable. Ther e is dense nonspecific pleural and parenchymal opacity in the right lung base. Heart and mediastinal contours are stable. No discrete pneumothorax is evident. There is increased soft tissue density in the superior mediastinum, suggesting lymphadenopathy. IMPRESSION: No significant interval change. Chest is better assessed on the 02/20/18 CT exam. POS: [facility]
--- NOTE | 2018-02-24 09:20 | PRG ---
DATE OF SERVICE: 02/24/2018 SUBJECTIVE: The patient is day #1 post-thoracoscopy with decortication. He is doing okay, but is requiring low-dose Levophed for hypotension. OBJECTIVE: VITAL SIGNS: Temperature 97.6, pulse 113, and blood pressure 114/76. A 24-hour intake 277, output 800. HEENT: Unremarkable. NECK: Without adenopathy or JVD. LUNGS: Fairly clear anteriorly. CARDIAC: S1 and S2, regular. ABDOMEN: Soft. EXTREMITIES: No edema. LABORATORY DATA: Sodium 135, potassium 4.1, BUN 22, creatinine 1.0, glucose 223. White blood cell count 17, hematocrit 22.9, and platelet count 121. Of note, the patient did get some blood this morning. ASSESSMENT: 1. Status post decortication of a left empyema from resistant Escherichia coli. 2. Lung cancer. 3. History of breast cancer. PLAN: The patient will be weaned off the Levophed. I will go ahead and check cortisol to make sure that he is not adrenally suppressed since he has a chemo and was probably on steroids with that. Continue antibiotics, but discontinue the vancomycin since he is only growing E. coli. Job ID: [id number]
[2018-02-24] MEDS: Vancomycin HCl 1.5 GM in Sodium Chloride 0.9% 250 ML 300 ML IVPB SCH ×3 (09:23→09:43)
[2018-02-24] MEDS: Cyanocobalamin (Vitamin B-12) 1,000 MCG TAB PO SCH (09:35)
[2018-02-24] MEDS: Cefepime 1 GM in Sodium Chloride 0.9% 100 ML IVPB SCH ×2 (11:50→22:30)
--- NOTE | 2018-02-24 12:34 | PDOC.PN ---
- Subjective Encounter Start Date: 02/24/18 Encounter Start Time: 11:00 Subjective: awake, has pain at surgical site - Objective Resuscitation Status - Order Detail: 02/20/18 08:07 Resuscitation Status Routine Resuscitation Status: FULL: Full Resuscitation MAR Reviewed: Yes Vital Signs & Weight: Vital Signs (12 hours) Temp 02/24/18 04:00 97.6 F Weight Admit Weight 230 lb 1 oz Weight 233 lb 1.6 oz Most Recent Monitor Data Heart Rate from ECG 122 NIBP 104/56 NIBP BP-Mean 72 Respiration from ECG 22 SpO2 99 I&O: 02/23/18 02/24/18 02/25/18 06:59 06:59 06:59 Intake Total 2150 2277 0 Output Total 1625 800 Balance 525 1477 0 Result Diagrams: 02/24/18 05:00 02/24/18 05:00 Phys Exam - Physical Examination HEENT: PERRLA, moist MMs Neck: no JVD, supple Respiratory: no wheezing, no rales chest tube+ Cardiovascular: RRR, no significant murmur Gastrointestinal: soft, non-tender, positive bowel sounds Musculoskeletal: no edema, pulses present Neurological: non-focal, moves all 4 limbs Psychiatric: normal affect, A&O x 3 Dx/Plan (1) Empyema lung Code(s): J86.9 - PYOTHORAX WITHOUT FISTULA Status: Acute (2) Sepsis Code(s): A41.9 - SEPSIS, UNSPECIFIED ORGANISM Status: Acute Qualifiers: Sepsis type: Escherichia coli Qualified Code(s): A41.51 - Sepsis due to Escherichia coli [E. coli] (3) Acute respiratory failure with hypoxemia Code(s): J96.01 - ACUTE RESPIRATORY FAILURE WITH HYPOXIA Status: Resolved (4) Anemia Code(s): D64.9 - ANEMIA, UNSPECIFIED Status: Chronic Qualifiers: Anemia type: other cause Other causes of anemia: antineoplastic chemotherapy Qualified Code(s): D64.81 - Anemia due to antineoplastic chemotherapy; T45.1X5A - Adverse effect of antineoplastic and immunosuppressive drugs, initial encounter Comment: S/P transfusion PRBC x 2. Hb stable (5) HTN (hypertension) Code(s): I10 - ESSENTIAL (PRIMARY) HYPERTENSION Status: Chronic Qualifiers: Hypertension type: essential hypertension Qualified Code(s): I10 - Essential (primary) hypertension (6) Macrocytosis Code(s): D75.89 - OTHER SPECIFIED DISEASES OF BLOOD AND BLOOD-FORMING ORGANS Status: Chronic (7) Obesity (BMI 30-39.9) Code(s): E66.9 - OBESITY, UNSPECIFIED Status: Chronic (8) Small cell carcinoma of lung Code(s): C34.90 - MALIGNANT NEOPLASM OF UNSP PART OF UNSP BRONCHUS OR LUNG Status: Chronic Comment: Last Chemo treatment 02/09/18, Dr. Blanca - Plan is on cefepime, cultures show e.coli sensitive to cephalosporins -: may wean and dc levophed -: nebs, i.spirometry. Continue toprol and tamoxifen -: prognosis guarded -: mobilize as tolerated, will transfuse if Hb <7g * . Review of Systems - Medications/Allergies Allergies/Adverse Reactions: Allergies Allergy/AdvReac Type Severity Reaction Status Date / Time No Known Allergies Allergy Verified 05/12/17 15:13 Medications: Current Medications Acetaminophen (Tylenol) 650 mg PO Q4H PRN PRN Reason: Headache/Fever/Mild Pain (1-3) Albuterol/Ipratropium (Duoneb) 3 ml NEB N4MS-MB PRN PRN Reason: Wheezing Benzonatate (Tessalon) 100 mg PO Q6H PRN PRN Reason: Cough Last Admin: 02/22/18 09:15 Dose: 100 mg Cyanocobalamin (Vitamin B-12) 1,000 mcg PO DAILY [facility]HT[facility] Last Admin: 02/24/18 09:35 Dose: 1,000 mcg Diphenhydramine HCl (Benadryl) 25 mg IVP Q3H PRN PRN Reason: Itching Diphenhydramine HCl (Benadryl) 25 mg PO Q3H PRN PRN Reason: Itching Diphenhydramine HCl (Benadryl) 25 mg IM Q3H PRN PRN Reason: Itching Hydralazine HCl (Apresoline) 10 mg SLOW IVP Q4H PRN PRN Reason: SBP > 180 and HR < 70 Hydromorphone HCl (Dilaudid Cadd) 0 mg IVPB INF PRN PRN Reason: Pain Last Admin: 02/23/18 19:07 Dose: 10 mg Cefepime HCl 1 gm/ Sodium (Chloride) 100 mls @ 200 mls/hr IVPB Q12H [facility]HTAQ Last Admin: 02/24/18 11:50 Dose: 100 mls Norepinephrine Bitartrate (Levophed) 250 mls @ 0 mls/hr IVPB INF [facility]; Protocol Sodium Chloride (Normal Saline 0.9%) 1,000 mls @ 125 mls/hr IV .Q8H [facility] Last Admin: 02/24/18 11:17 Dose: 1,000 mls Metoprolol Succinate (Toprol Xl) 25 mg PO BID [facility] Last Admin: 02/23/18 19:46 Dose: Not Given Miscellaneous Medication (Pharmacy To Dose) 0 each IVPB DAILYPRN PRN PRN Reason: LABS Naloxone HCl (Narcan) 0.2 mg IV Q5MIN PRN PRN Reason: Opiate Reversal Ondansetron HCl (Zofran Odt) 8 mg PO Q8H PRN PRN Reason: Nausea/Vomiting Ondansetron HCl (Zofran) 4 mg IVP Q6H PRN PRN Reason: Nausea/Vomiting Ondansetron HCl (Zofran) 4 mg IVP Q6H PRN PRN Reason: Nausea/Vomiting Pantoprazole Sodium (Protonix) 40 mg PO DAILY [facility] Last Admin: 02/24/18 09:36 Dose: 40 mg Promethazine HCl (Phenergan) 12.5 mg IM Q4H PRN PRN Reason: Nausea/Vomiting Tamoxifen Citrate (Nolvadex) 20 mg PO DAILY [facility] Last Admin: 02/24/18 09:34 Dose: 20 mg Zolpidem Tartrate (Ambien) 5 mg PO HSPRN PRN PRN Reason: Insomnia
--- NOTE | 2018-02-24 12:41 | PDOC.PN ---
- Subjective Encounter Start Date: 02/23/18 Encounter Start Time: 16:00 Subjective: had chest tube placed this afternoon for empyema -: awake, no sob, has pain - Objective Resuscitation Status - Order Detail: 02/20/18 08:07 Resuscitation Status Routine Resuscitation Status: FULL: Full Resuscitation MAR Reviewed: Yes Vital Signs & Weight: Vital Signs (12 hours) Temp 02/24/18 04:00 97.6 F Weight Admit Weight 230 lb 1 oz Weight 233 lb 1.6 oz Most Recent Monitor Data Heart Rate from ECG 122 NIBP 104/56 NIBP BP-Mean 72 Respiration from ECG 22 SpO2 99 I&O: 02/23/18 02/24/18 02/25/18 06:59 06:59 06:59 Intake Total 2150 2277 0 Output Total 1625 800 Balance 525 1477 0 Result Diagrams: 02/24/18 05:00 02/24/18 05:00 Phys Exam - Physical Examination HEENT: PERRLA, sclera anicteric Neck: no JVD, supple Respiratory: no wheezing, no rales chest tube+ Cardiovascular: RRR, no significant murmur Gastrointestinal: soft, non-tender, positive bowel sounds Musculoskeletal: pulses present, edema present Neurological: non-focal, moves all 4 limbs Psychiatric: A&O x 3 Dx/Plan (1) Empyema lung Code(s): J86.9 - PYOTHORAX WITHOUT FISTULA Status: Acute Comment: s/p chest tube (2) Sepsis Code(s): A41.9 - SEPSIS, UNSPECIFIED ORGANISM Status: Acute Qualifiers: Sepsis type: Escherichia coli Qualified Code(s): A41.51 - Sepsis due to Escherichia coli [E. coli] (3) Acute respiratory failure with hypoxemia Code(s): J96.01 - ACUTE RESPIRATORY FAILURE WITH HYPOXIA Status: Resolved (4) Anemia Code(s): D64.9 - ANEMIA, UNSPECIFIED Status: Chronic Qualifiers: Anemia type: other cause Other causes of anemia: antineoplastic chemotherapy Qualified Code(s): D64.81 - Anemia due to antineoplastic chemotherapy; T45.1X5A - Adverse effect of antineoplastic and immunosuppressive drugs, initial encounter Comment: S/P transfusion PRBC x 2. Hb stable (5) HTN (hypertension) Code(s): I10 - ESSENTIAL (PRIMARY) HYPERTENSION Status: Chronic Qualifiers: Hypertension type: essential hypertension Qualified Code(s): I10 - Essential (primary) hypertension (6) Macrocytosis Code(s): D75.89 - OTHER SPECIFIED DISEASES OF BLOOD AND BLOOD-FORMING ORGANS Status: Chronic (7) Obesity (BMI 30-39.9) Code(s): E66.9 - OBESITY, UNSPECIFIED Status: Chronic (8) Small cell carcinoma of lung Code(s): C34.90 - MALIGNANT NEOPLASM OF UNSP PART OF UNSP BRONCHUS OR LUNG Status: Chronic Comment: Last Chemo treatment 02/09/18, Dr. Blanca - Plan is on vanc and cefepime -: nebs, i.spirometry -: toprol, tamoxifen -: will f/u -: is on levophed, labs in am * . Review of Systems - Medications/Allergies Allergies/Adverse Reactions: Allergies Allergy/AdvReac Type Severity Reaction Status Date / Time No Known Allergies Allergy Verified 05/12/17 15:13 Medications: Current Medications Acetaminophen (Tylenol) 650 mg PO Q4H PRN PRN Reason: Headache/Fever/Mild Pain (1-3) Albuterol/Ipratropium (Duoneb) 3 ml NEB I2RA-HD PRN PRN Reason: Wheezing Benzonatate (Tessalon) 100 mg PO Q6H PRN PRN Reason: Cough Last Admin: 02/22/18 09:15 Dose: 100 mg Cyanocobalamin (Vitamin B-12) 1,000 mcg PO DAILY MUSHTAQ Last Admin: 02/24/18 09:35 Dose: 1,000 mcg Diphenhydramine HCl (Benadryl) 25 mg IVP Q3H PRN PRN Reason: Itching Diphenhydramine HCl (Benadryl) 25 mg PO Q3H PRN PRN Reason: Itching Diphenhydramine HCl (Benadryl) 25 mg IM Q3H PRN PRN Reason: Itching Hydralazine HCl (Apresoline) 10 mg SLOW IVP Q4H PRN PRN Reason: SBP > 180 and HR < 70 Hydromorphone HCl (Dilaudid Cadd) 0 mg IVPB INF PRN PRN Reason: Pain Last Admin: 02/23/18 19:07 Dose: 10 mg Cefepime HCl 1 gm/ Sodium (Chloride) 100 mls @ 200 mls/hr IVPB Q12H MUSHTAQ Last Admin: 02/24/18 11:50 Dose: 100 mls Norepinephrine Bitartrate (Levophed) 250 mls @ 0 mls/hr IVPB INF [facility]; Protocol Sodium Chloride (Normal Saline 0.9%) 1,000 mls @ 125 mls/hr IV .Q8H [facility] Last Admin: 02/24/18 11:17 Dose: 1,000 mls Metoprolol Succinate (Toprol Xl) 25 mg PO BID [facility] Last Admin: 02/23/18 19:46 Dose: Not Given Miscellaneous Medication (Pharmacy To Dose) 0 each IVPB DAILYPRN PRN PRN Reason: LABS Naloxone HCl (Narcan) 0.2 mg IV Q5MIN PRN PRN Reason: Opiate Reversal Ondansetron HCl (Zofran Odt) 8 mg PO Q8H PRN PRN Reason: Nausea/Vomiting Ondansetron HCl (Zofran) 4 mg IVP Q6H PRN PRN Reason: Nausea/Vomiting Ondansetron HCl (Zofran) 4 mg IVP Q6H PRN PRN Reason: Nausea/Vomiting Pantoprazole Sodium (Protonix) 40 mg PO DAILY [facility] Last Admin: 02/24/18 09:36 Dose: 40 mg Promethazine HCl (Phenergan) 12.5 mg IM Q4H PRN PRN Reason: Nausea/Vomiting Tamoxifen Citrate (Nolvadex) 20 mg PO DAILY [facility] Last Admin: 02/24/18 09:34 Dose: 20 mg Zolpidem Tartrate (Ambien) 5 mg PO HSPRN PRN PRN Reason: Insomnia
[2018-02-25] MEDS ORDERED: Diltiazem HCl 125 MG, Admixture Fee 1 EACH in Sodium Chloride 0.9% 100 ML IVPB SCH (00:45)
[2018-02-25] MEDS: HYDROmorphone 10 mg/100 ml CADD IVPB PRN (00:45)
[2018-02-25] MEDS: Ondansetron PF 4 MG/2 ML Vial IVP PRN ×2 (01:21→18:00)
[2018-02-25 06:39] LABS: Hemoglobin 11.5 g/dL (14.0-18.0); Mean Corpuscular HGB CONC 32.7 g/dL (32.0-36.0); Mean Corpuscular Hemoglobin 30.3 pg (27.0-31.0); Mean Corpuscular Volume 92.9 fL (78.0-98.0); Platelet Count 163 thou/uL (130-400); RBC Distribution Width 14.5 % (11.5-14.5); White Blood Cell (WBC) Count 19.1 thou/uL (4.8-10.8)
[2018-02-25 06:48] LABS: Anion Gap 13 mmol/L (10-20); BUN (Urea Nitrogen) 26 mg/dL (8.4-25.7); Calc. Creatinine Clearance 105 mL/min (70-130); Carbon Dioxide 29 mmol/L (23-31); Chloride 96 mmol/L (98-107); Estimated GFR-MDRD 69; Glucose 143 mg/dL (80-115); Potassium 4.2 mmol/L (3.5-5.1); Sodium 134 mmol/L (136-145)
[2018-02-25 06:55] LABS: #Basophils 0.1 thou/uL (0.0-0.2); #Lymphocytes 0.9 thou/uL (1.20-3.40); #Monocytes 1.1 thou/uL (0.11-0.59); #Neutrophils 17.1 thou/uL (1.40-6.50); %Basophils 0.3 % (0.0-1.0); %Eosinophils 0.2 % (0.0-10.0); %Lymphocytes 4.5 % (21.0-51.0); %Monocytes 5.7 % (0.0-10.0); %Neutrophils 89.3 % (42.0-75.0); Platelet Morphology Comment Appears Adequate
[2018-02-25 06:58] LABS: Band 14 % (5-11); Lymphocytes 1 % (21-51); Monocytes 5 % (0-10)
--- NOTE | 2018-02-25 09:20 | RAD ---
CHEST 1 VIEW: Date: 02/25/18 INDICATION: History of thoracotomy. COMPARISON: Prior exam dated 02/24/18 and 02/23/18. FINDINGS: Right-sided thoracostomy tube is unchanged. Small right pleural effusion persists. There is slight im proved aeration of the right lung base. Some residual opacity remains, which may reflect residual sub segmental atelectasis or pneumonia. Left lung remains clear. No pneumothorax is evident. Patchy scarr ing within the left lung apex is similar appearing. Cardiomegaly is unchanged. Osseous structures are similar appearing. IMPRESSION: 1. Stable right-sided thoracostomy tube. 2. Some improved aeration of the right lower lobe which may reflect residual atelectasis or some imp roving pneumonia. 3. Stable cardiomegaly. 4. No pneumothorax. POS: [facility]
--- NOTE | 2018-02-25 10:11 | PRG ---
DATE OF SERVICE: 02/25/2018 SUBJECTIVE: He developed rather extreme tachycardia last night, but it is sinus in nature. He was put on a Cardizem drip. OBJECTIVE: VITAL SIGNS: Temperature 97.8, pulse in the low 140s, blood pressure 136/85. A 24-hour intake 3180, output 610. HEENT: Unremarkable. NECK: No JVD. LUNGS: Fairly clear bilaterally. Chest tube in the right. Has no air leak. CARDIAC: S1 and S2. Tachycardic and regular. ABDOMEN: Soft, protuberant. EXTREMITIES: Edematous throughout. LABORATORY DATA: White blood cell count 19.1, hematocrit 35.2, and platelet count 163. Sodium 134, potassium 4.2, chloride 96, CO2 of 29, BUN 26, creatinine 1.1, glucose 143. X-ray shows no acute changes. ASSESSMENT: Persistent tachycardia, which might be volume phenomenon or perhaps a pain phenomenon. PLAN: 1. I am going to stop the Cardizem as that is not indicated for sinus tachycardia. 2. Consider more aggressive treatment of his pain. 3. Restart his metoprolol. Job ID: [id number]
[2018-02-25] MEDS: Cyanocobalamin (Vitamin B-12) 1,000 MCG TAB PO SCH (10:20)
[2018-02-25] MEDS: Furosemide 40 MG/4 ML VIAL SLOW IVP SCH ×2 (10:23→19:12)
[2018-02-25] MEDS: Cefepime 1 GM in Sodium Chloride 0.9% 100 ML IVPB SCH (10:39)
--- NOTE | 2018-02-25 12:38 | PDOC.PN ---
- Subjective Encounter Start Date: 02/25/18 Encounter Start Time: 07:30 Subjective: c/o sob, has pain at surgical site - Objective Resuscitation Status - Order Detail: 02/20/18 08:07 Resuscitation Status Routine Resuscitation Status: FULL: Full Resuscitation MAR Reviewed: Yes Vital Signs & Weight: Vital Signs (12 hours) Temp Pulse Ox 02/25/18 08:00 97.6 F 100 02/25/18 04:00 97.8 F Weight Admit Weight 230 lb 1 oz Weight 243 lb 13.3 oz Most Recent Monitor Data Heart Rate from ECG 136 NIBP 121/69 NIBP BP-Mean 86 Respiration from ECG 18 SpO2 100 I&O: 02/24/18 02/25/18 02/26/18 06:59 06:59 06:59 Intake Total 2277 3180.9 51.6 Output Total 800 610 210 Balance 1477 2570.9 -158.4 Result Diagrams: 02/25/18 06:13 02/25/18 06:13 Phys Exam - Physical Examination HEENT: PERRLA, sclera anicteric Neck: no JVD, supple Respiratory: no wheezing, no rales chest tube+ Cardiovascular: RRR, no significant murmur Gastrointestinal: soft, non-tender, positive bowel sounds Musculoskeletal: pulses present, edema present Neurological: non-focal, moves all 4 limbs Psychiatric: A&O x 3 Dx/Plan (1) Empyema lung Code(s): J86.9 - PYOTHORAX WITHOUT FISTULA Status: Acute Comment: s/p chest tube (2) Sepsis Code(s): A41.9 - SEPSIS, UNSPECIFIED ORGANISM Status: Acute Qualifiers: Sepsis type: Escherichia coli Qualified Code(s): A41.51 - Sepsis due to Escherichia coli [E. coli] (3) Acute respiratory failure with hypoxemia Code(s): J96.01 - ACUTE RESPIRATORY FAILURE WITH HYPOXIA Status: Resolved (4) Anemia Code(s): D64.9 - ANEMIA, UNSPECIFIED Status: Chronic Qualifiers: Anemia type: other cause Other causes of anemia: antineoplastic chemotherapy Qualified Code(s): D64.81 - Anemia due to antineoplastic chemotherapy; T45.1X5A - Adverse effect of antineoplastic and immunosuppressive drugs, initial encounter Comment: S/P transfusion PRBC x 2. Hb stable (5) HTN (hypertension) Code(s): I10 - ESSENTIAL (PRIMARY) HYPERTENSION Status: Chronic Qualifiers: Hypertension type: essential hypertension Qualified Code(s): I10 - Essential (primary) hypertension (6) Macrocytosis Code(s): D75.89 - OTHER SPECIFIED DISEASES OF BLOOD AND BLOOD-FORMING ORGANS Status: Chronic (7) Obesity (BMI 30-39.9) Code(s): E66.9 - OBESITY, UNSPECIFIED Status: Chronic (8) Small cell carcinoma of lung Code(s): C34.90 - MALIGNANT NEOPLASM OF UNSP PART OF UNSP BRONCHUS OR LUNG Status: Chronic Comment: Last Chemo treatment 02/09/18, Dr. Blanca - Plan is on lapidary apprentice-dilaudid for pain -: on cefepime, duonebs, toprol -: prognosis guarded -: encourage i.spirometry -: oral fluid intake * . Review of Systems - Medications/Allergies Allergies/Adverse Reactions: Allergies Allergy/AdvReac Type Severity Reaction Status Date / Time No Known Allergies Allergy Verified 05/12/17 15:13 Medications: Current Medications Acetaminophen (Tylenol) 650 mg PO Q4H PRN PRN Reason: Headache/Fever/Mild Pain (1-3) Albuterol/Ipratropium (Duoneb) 3 ml NEB [id number] MUSHTAQ Benzonatate (Tessalon) 100 mg PO Q6H PRN PRN Reason: Cough Last Admin: 02/22/18 09:15 Dose: 100 mg Cyanocobalamin (Vitamin B-12) 1,000 mcg PO DAILY [facility]HTAQ Last Admin: 02/25/18 10:20 Dose: 1,000 mcg Diphenhydramine HCl (Benadryl) 25 mg IVP Q3H PRN PRN Reason: Itching Diphenhydramine HCl (Benadryl) 25 mg PO Q3H PRN PRN Reason: Itching Diphenhydramine HCl (Benadryl) 25 mg IM Q3H PRN PRN Reason: Itching Hydralazine HCl (Apresoline) 10 mg SLOW IVP Q4H PRN PRN Reason: SBP > 180 and HR < 70 Hydromorphone HCl (Dilaudid Cadd) 0 mg IVPB INF PRN PRN Reason: Pain Last Admin: 02/25/18 00:45 Dose: 10 mg Cefepime HCl 1 gm/ Sodium (Chloride) 100 mls @ 200 mls/hr IVPB Q12H [facility] Last Admin: 02/25/18 10:39 Dose: 100 mls Norepinephrine Bitartrate (Levophed) 250 mls @ 0 mls/hr IVPB INF [facility]; Protocol Sodium Chloride (Normal Saline 0.9%) 1,000 mls @ 0 mls/hr IV .Q0M [facility] Last Admin: 02/24/18 11:17 Dose: 1,000 mls Metoprolol Succinate (Toprol Xl) 25 mg PO BID [facility] Last Admin: 02/25/18 10:21 Dose: 25 mg Miscellaneous Medication (Pharmacy To Dose) 0 each IVPB DAILYPRN PRN PRN Reason: LABS Naloxone HCl (Narcan) 0.2 mg IV Q5MIN PRN PRN Reason: Opiate Reversal Ondansetron HCl (Zofran Odt) 8 mg PO Q8H PRN PRN Reason: Nausea/Vomiting Ondansetron HCl (Zofran) 4 mg IVP Q6H PRN PRN Reason: Nausea/Vomiting Last Admin: 02/25/18 01:21 Dose: 4 mg Ondansetron HCl (Zofran) 4 mg IVP Q6H PRN PRN Reason: Nausea/Vomiting Pantoprazole Sodium (Protonix) 40 mg PO DAILY [facility] Last Admin: 02/25/18 10:20 Dose: 40 mg Promethazine HCl (Phenergan) 12.5 mg IM Q4H PRN PRN Reason: Nausea/Vomiting Tamoxifen Citrate (Nolvadex) 20 mg PO DAILY [facility] Last Admin: 02/25/18 10:20 Dose: 20 mg Zolpidem Tartrate (Ambien) 5 mg PO HSPRN PRN PRN Reason: Insomnia
--- NOTE | 2018-02-25 17:03 | EKG ---
Test Reason : STAT Blood Pressure : / mmHG Vent. Rate : 136 BPM Atrial Rate : 136 BPM P-R Int : 142 ms QRS Dur : 084 ms QT Int : 284 ms P-R-T Axes : 013 006 009 degrees QTc Int : 427 ms Sinus tachycardia Nonspecific ST-T changes When compared with ECG of 17-JAN-2018 18:19, Premature ventricular complexes are no longer Present Confirmed by DR. Lo PUENTE ([id number]) on 02/25/2018 5:02:38 PM Referred By: DANIELLE Confirmed By:DR. Lo PUENTE
[2018-02-25] MEDS ORDERED: Furosemide 40 MG/4 ML VIAL ONE (19:10)
[2018-02-25] MEDS ORDERED: Furosemide 40 MG/4 ML VIAL SLOW IVP SCH (19:30)
[2018-02-25 20:18] LABS: Base Excess (BEa) 3.9 mEq/L (-2.0 to +3.0); CO2 Tension 59.5 mmHg (35.0-45.0); Calcium, Ionized 1.18 mmol/L (1.12-1.30); Carboxyhemoglobin (COHb) 1.5 gm% (0.0-3.0); Hemoglobin (Hb) 11.7 g/dL (14.0-18.0); Potassium - ABG Lab 4.31 mmol/L (3.70-5.30); pH, Arterial 7.34 (7.35-7.45)
[2018-02-25 20:19] LABS: ALV-art Gradient 141.105 (0-20); O2 Tension (PaO2) 41.2 mmHg (> 80.0); Puncture Site RRA
[2018-02-26] MEDS: Cefepime 1 GM in Sodium Chloride 0.9% 100 ML IVPB SCH (00:12)
--- NOTE | 2018-02-26 01:35 | CON ---
DATE OF CONSULTATION: HISTORY: Lance Sanchez is a 68-year-old white male, followed intermittently over the last few years. He previously had atrial fibrillation in June 2009, underwent electrical cardioversion at [facility] in [place]. Two weeks later, he was seen for followup and was back in atrial fibrillation with a rate of 200 per minute, and he underwent a second cardioversion. In January 2010, he had shortness of breath and again elevated heart rate, and underwent a third cardioversion. He was placed on medications. Once the prescription ran out, he did not get them refilled. He did not go back for followup. He was hospitalized here at [place] [facility] in January 2010 with chest discomfort and negative cardiac enzymes. He was then admitted in April 2011 with complaints of two days of pinching discomfort in the left side of his chest. The pain was continuously present for at least 40 hours prior to admission. He had palpable tenderness on the left side of his chest. Cardiac enzymes were negative. He underwent Lexiscan Cardiolite testing, which revealed no evidence of ischemia. He then began to have onset of rapid heartbeat on the monitor, which appeared to be atrial flutter. He was placed on IV Cardizem to control the rate. Echo during that admission revealed ejection fraction of 50% to 55% with left atrial enlargement, mild mitral and tricuspid regurgitation. He developed thrombocytopenia with Lovenox and just continued to be anticoagulated with Coumadin. He was seen by Dr. Gil ultimately, and in [place], he underwent ablation of his atrial flutter by Dr. Gil. In November 2016, he was discovered to have left breast cancer, underwent bilateral mastectomy and left axillary node dissection in November 2016. He then underwent chemotherapy and radiation therapy. In April 2017, he was admitted with rapid heartbeat. He said he noticed multiple episodes of that over the last 2 months. In the emergency room, he was given adenosine, followed by amiodarone and he converted to sinus rhythm. He denied any episodes of shortness of breath or chest pain with those episodes, he would just feel fatigued. He was seen by Dr. Luna and was placed on Multaq. I have not seen him since that time. In January 2018, he is admitted with small cell carcinoma of the lung, metastatic to the liver. He was again admitted on February 20 due to extreme shortness of breath. It is felt that he had a malignant pleural effusion. In general, during this admission, he has been in sinus tachycardia, although he did have one 17- second run of supraventricular tachycardia with heart rates in the 170s; however, this resolved and has not had any since. Ultimately, it was felt that this was a right-sided empyema and he was underwent a thoracoscopic decortication. This was performed on February 23. Cardizem was started for his tachycardia, which at that time appeared to be sinus tachycardia, and then this was discontinued. He was restarted on his metoprolol that he was on as an outpatient. Mr. Sanchez denies any chest discomfort, he just complains of shortness of breath. PAST MEDICAL HISTORY: Male breast cancer, status post bilateral mastectomy, left axillary lymph node dissection. Then, he has developed small cell carcinoma of the lung and now has an empyema. History of atrial fibrillation. Status post ablation of atrial flutter in [place]. PAST SURGICAL HISTORY: Bilateral mastectomy, small intestine tumor removal in 2007, and ablation of atrial flutter. SOCIAL HISTORY: He chewed tobacco and would have 2 to 3 beers per day. FAMILY HISTORY: Negative for coronary artery disease. REVIEW OF SYSTEMS: A 12-point review of systems is otherwise unremarkable. PHYSICAL EXAMINATION: VITAL SIGNS: Blood pressure 122/73. CHEST: Crackles and rhonchi bilaterally. CARDIOVASCULAR: S1 and S2 normal without any S3 or S4. ABDOMEN: Normal bowel sounds. The abdomen is distended. EXTREMITIES: 2+ pretibial edema. SKIN: Warm and dry. LABORATORY DATA: At the present time, the patient is in sinus rhythm. Echocardiogram on February 05 revealed study be technically difficult. Ejection fraction was 50% to 55% with mild mitral regurgitation, aortic valvular sclerosis, and mild tricuspid regurgitation. White count 19,100, hemoglobin 11.5, hematocrit 35.2, and platelets 163,000. Sodium 134, potassium 4.2, chloride 96, carbon dioxide 29, BUN 26, and creatinine 1.07. IMPRESSION: 1. Right lung empyema. 2. Small cell carcinoma of the lung with liver metastasis. 3. History of male breast cancer, status post bilateral mastectomy. 4. History of atrial flutter ablation. 5. History of atrial fibrillation in the past, and in the past, he was placed on Multaq, however, it is not certain when that was stopped. 6. Episode of supraventricular tachycardia at a rate of 170 per minute. Basic rhythm is sinus tachycardia. PLAN: Agree with resumption of low-dose metoprolol that he was on as an outpatient. I will continue to follow the patient with you. Job ID: [id number] MTDD
[2018-02-26 04:50] LABS: Band 24 % (5-11); Hemoglobin 10.3 g/dL (14.0-18.0); Lymphocytes 2 % (21-51); MDiff Complete? YES; Mean Corpuscular HGB CONC 33.5 g/dL (32.0-36.0); Mean Corpuscular Hemoglobin 30.8 pg (27.0-31.0); Mean Corpuscular Volume 92.1 fL (78.0-98.0); Mean Platelet Volume 6.9 fL (7.4-10.4); Metamyelocyte 1 % (0-0); Monocytes 2 % (0-10); Neutrophil 71 % (42-75); Platelet Count 203 thou/uL (130-400); Platelet Morphology Comment Appears Adequate; RBC Distribution Width 14.9 % (11.5-14.5); Red Blood Cell (RBC) Count 3.33 mill/uL (4.70-6.10); White Blood Cell (WBC) Count 25.3 thou/uL (4.8-10.8)
[2018-02-26 05:30] LABS: Anion Gap 15 mmol/L (10-20); BUN (Urea Nitrogen) 43 mg/dL (8.4-25.7); Calc. Creatinine Clearance 61 mL/min (70-130); Calcium 9.2 mg/dL (7.8-10.44); Carbon Dioxide 30 mmol/L (23-31); Chloride 95 mmol/L (98-107); Estimated GFR-MDRD 37; Glucose 195 mg/dL (80-115); Potassium 4.4 mmol/L (3.5-5.1); Sodium 136 mmol/L (136-145)
[2018-02-26] MEDS ORDERED: Scopolamine 1.5 mg/72 hour Patch TD SCH (09:00)
[2018-02-26] MEDS ORDERED: Albumin 25% 25 GM/100 ML BOT IVPB SCH (09:00)
--- NOTE | 2018-02-26 09:05 | RAD ---
SINGLE VIEW OF THE CHEST: Comparison: 02-24-18 History: Status post thoracotomy for right pleural effusion. FINDINGS: Single view of the chest shows an enlarged but stable cardiomediastinal silhouette. The Mediport is u nchanged in position. There are right sided chest tubes. There is residual small to moderate right pl eural effusion suggesting atelectasis. This effusion may be larger than on the prior examination. IMPRESSION: Slight enlargement of right pleural effusion. POS: [facility]
[2018-02-26] MEDS: Cyanocobalamin (Vitamin B-12) 1,000 MCG TAB PO SCH (09:12)
--- NOTE | 2018-02-26 10:05 | PRG ---
DATE OF SERVICE: 02/26/2018 Thirty-five minutes critical time. SUBJECTIVE: The patient has struggled throughout the night with breathing. He has been persistently tachycardic. He requires BiPAP last night. he did not respond to much diuresis. OBJECTIVE: VITAL SIGNS: His temperature is 97.6, pulse 140, blood pressure 126/75, O2 saturation 97%. A 24-hour intake is 1063, output 735. HEENT: Unremarkable. LUNGS: He has coarse upper airway sounds. Poor air movement. CARDIAC: S1 and S2, tachycardic. ABDOMEN: Soft. EXTREMITIES: Edematous. LABORATORY DATA: White blood cell count 25.3, hematocrit 30.7, and platelet count 203. Last night's blood gas; pH of 7.34, pCO2 of 59, and pO2 of 41. Sodium 136, potassium 4.4, chloride 95, CO2 of 30, BUN 43, creatinine 1.8, and glucose 195. His x-ray shows pulmonary vascular congestion, some fluid tracking at the right fissure. ASSESSMENT: 1. Status post decortication for right empyema. 2. Persistent tachycardia. I think he may be intravascularly depleted. 3. Poor pulmonary reserve. 4. Stage IV lung cancer. 5. [id number] respiratory failure. PLAN: The patient looks to be doing very poorly and may not survive the present illness. I am trying to speak with the patient and his son regarding end of life issues. In the meantime, I will try him on some albumin. We will try BiPAP as needed. I have switched his cefepime over to meropenem. I have also added some steroids. Despite that, I think his prognosis is very poor. Job ID: [id number]
[2018-02-26] MEDS: Lorazepam 2 MG/ML VIAL SLOW IVP PRN ×2 (11:20→13:11)
--- NOTE | 2018-02-26 12:45 | PDOC.PN ---
- Subjective Encounter Start Date: 02/26/18 Encounter Start Time: 10:50 Subjective: has sob and is in resp distress -: daughter and neice at bedside -: is awake but not oriented - Objective Resuscitation Status - Order Detail: 02/20/18 08:07 Resuscitation Status Routine Resuscitation Status: FULL: Full Resuscitation MAR Reviewed: Yes Vital Signs & Weight: Vital Signs (12 hours) Temp Pulse Resp Pulse Ox 02/26/18 08:37 141 H 27 H 100 02/26/18 08:00 98.7 F 02/26/18 04:00 97.6 F 02/26/18 02:51 141 H 24 H 99 Weight Admit Weight 230 lb 1 oz Weight 249 lb 12.54 oz Most Recent Monitor Data Heart Rate from ECG 140 NIBP 134/87 NIBP BP-Mean 102 Respiration from ECG 26 SpO2 93 I&O: 02/25/18 02/26/18 02/27/18 06:59 06:59 06:59 Intake Total 3180.9 1063.0 Output Total 610 735 140 Balance 2570.9 328.0 -140 Result Diagrams: 02/26/18 04:29 02/26/18 04:29 Phys Exam - Physical Examination HEENT: PERRLA dry mucosa Neck: no JVD, supple Respiratory: no wheezing rhonchi+++, chest tube+ Cardiovascular: RRR, no significant murmur tachycardic Gastrointestinal: soft, no distention, positive bowel sounds Musculoskeletal: pulses present, edema present Neurological: non-focal, moves all 4 limbs Dx/Plan (1) Empyema lung Code(s): J86.9 - PYOTHORAX WITHOUT FISTULA Status: Acute Comment: s/p chest tube (2) Sepsis Code(s): A41.9 - SEPSIS, UNSPECIFIED ORGANISM Status: Acute Qualifiers: Sepsis type: Escherichia coli Qualified Code(s): A41.51 - Sepsis due to Escherichia coli [E. coli] Comment: severe sepsis with organ failures (3) Acute respiratory failure with hypoxemia Code(s): J96.01 - ACUTE RESPIRATORY FAILURE WITH HYPOXIA Status: Acute (4) Anemia Code(s): D64.9 - ANEMIA, UNSPECIFIED Status: Chronic Qualifiers: Anemia type: other cause Other causes of anemia: antineoplastic chemotherapy Qualified Code(s): D64.81 - Anemia due to antineoplastic chemotherapy; T45.1X5A - Adverse effect of antineoplastic and immunosuppressive drugs, initial encounter Comment: S/P transfusion PRBC x 2. Hb stable (5) HTN (hypertension) Code(s): I10 - ESSENTIAL (PRIMARY) HYPERTENSION Status: Chronic Qualifiers: Hypertension type: essential hypertension Qualified Code(s): I10 - Essential (primary) hypertension (6) Macrocytosis Code(s): D75.89 - OTHER SPECIFIED DISEASES OF BLOOD AND BLOOD-FORMING ORGANS Status: Chronic (7) Obesity (BMI 30-39.9) Code(s): E66.9 - OBESITY, UNSPECIFIED Status: Chronic (8) Small cell carcinoma of lung Code(s): C34.90 - MALIGNANT NEOPLASM OF UNSP PART OF UNSP BRONCHUS OR LUNG Status: Chronic Comment: Last Chemo treatment 02/09/18, Dr. Blanca - Plan poor prognosis, has d/w son and patient this am -: is on meropenem, will reduce dose in am (carlos) -: nebs, toprol, steroids, dilaudid teletypesetter monitor, albumin infusions -: is getting back on bipap -: d/w daughter and neice at bedside * . Review of Systems - Medications/Allergies Allergies/Adverse Reactions: Allergies Allergy/AdvReac Type Severity Reaction Status Date / Time No Known Allergies Allergy Verified 05/12/17 15:13 Medications: Current Medications Acetaminophen (Tylenol) 650 mg PO Q4H PRN PRN Reason: Headache/Fever/Mild Pain (1-3) Albumin Human (Albumin 25%) 25 gm IVPB TID [facility] Stop: 02/27/18 09:01 Last Admin: 02/26/18 09:11 Dose: 25 gm Albuterol/Ipratropium (Duoneb) 3 ml NEB [id number] [facility] Last Admin: 02/26/18 08:35 Dose: 3 ml Benzonatate (Tessalon) 100 mg PO Q6H PRN PRN Reason: Cough Last Admin: 02/22/18 09:15 Dose: 100 mg Cyanocobalamin (Vitamin B-12) 1,000 mcg PO DAILY [facility] Last Admin: 02/26/18 09:12 Dose: Not Given Diphenhydramine HCl (Benadryl) 25 mg IVP Q3H PRN PRN Reason: Itching Diphenhydramine HCl (Benadryl) 25 mg PO Q3H PRN PRN Reason: Itching Diphenhydramine HCl (Benadryl) 25 mg IM Q3H PRN PRN Reason: Itching Hydralazine HCl (Apresoline) 10 mg SLOW IVP Q4H PRN PRN Reason: SBP > 180 and HR < 70 Hydromorphone HCl (Dilaudid Cadd) 0 mg IVPB INF PRN PRN Reason: Pain Last Admin: 02/25/18 00:45 Dose: 10 mg Norepinephrine Bitartrate (Levophed) 250 mls @ 0 mls/hr IVPB INF [facility]; Protocol Sodium Chloride (Normal Saline 0.9%) 1,000 mls @ 0 mls/hr IV .Q0M [facility] Last Admin: 02/24/18 11:17 Dose: 1,000 mls Meropenem 2 gm/ Miscellaneous Medication 1 each/ Sodium Chloride 100 mls @ 200 mls/hr IVPB Q8HR [facility] Lorazepam (Ativan) 1 mg SLOW IVP Q4H PRN PRN Reason: Anxiety/Agitation Last Admin: 02/26/18 11:20 Dose: 1 mg Methylprednisolone Sodium Succinate (Solu-Medrol) 40 mg IVP Q6HR [facility] Last Admin: 02/26/18 11:20 Dose: 40 mg Metoprolol Succinate (Toprol Xl) 37.5 mg PO BID [facility] Miscellaneous Medication (Pharmacy To Dose) 0 each IVPB DAILYPRN PRN PRN Reason: LABS Naloxone HCl (Narcan) 0.2 mg IV Q5MIN PRN PRN Reason: Opiate Reversal Ondansetron HCl (Zofran Odt) 8 mg PO Q8H PRN PRN Reason: Nausea/Vomiting Ondansetron HCl (Zofran) 4 mg IVP Q6H PRN PRN Reason: Nausea/Vomiting Last Admin: 02/25/18 18:00 Dose: 4 mg Ondansetron HCl (Zofran) 4 mg IVP Q6H PRN PRN Reason: Nausea/Vomiting Pantoprazole Sodium (Protonix) 40 mg PO DAILY [facility] Last Admin: 02/26/18 09:12 Dose: 40 mg Promethazine HCl (Phenergan) 12.5 mg IM Q4H PRN PRN Reason: Nausea/Vomiting Propofol (Diprivan) 200 mg .ROUTE .STK-MED ONE Stop: 02/23/18 12:45 Scopolamine (Transderm Scop) 1.5 mg TD Q3D@0900 [facility] Last Admin: 02/26/18 09:11 Dose: 1.5 mg Tamoxifen Citrate (Nolvadex) 20 mg PO DAILY [facility] Last Admin: 02/25/18 10:20 Dose: 20 mg Zolpidem Tartrate (Ambien) 5 mg PO HSPRN PRN PRN Reason: Insomnia
[2018-02-26 13:19] VITALS: TEMP 98.1
[2018-02-26] MEDS ORDERED: Meropenem 2 GM, Admixture Fee 1 EACH in Sodium Chloride 0.9% 100 ML IVPB SCH (14:00)
[2018-02-26] MEDS ORDERED: Lorazepam 2 MG/ML VIAL SLOW IVP PRN (14:52)
[2018-02-26] MEDS: Morphine 4 MG/ML VIAL IV PRN ×2 (15:09→16:01)
--- NOTE | 2018-02-27 19:06 | DIS ---
DATE OF ADMISSION: 02/20/2018 DATE OF DISCHARGE: 02/26/2018 SUMMARY: DATE. OF : 02/26/2018 at 5:20 p.m. PRIMARY CAUSE OF : 1. Empyema of right lung from 6 days. 2. Acute respiratory failure with hypoxia from six days. 3. Sepsis from 6 days. 4. Small cell lung cancer. SECONDARY CAUSE OF : Anemia and deconditioning. BRIEF COURSE DURING HOSPITALIZATION: The patient initially got admitted on the for shortness of breath. Initial workup in the ER revealed large right-sided pleural effusion. He was evaluated by Dr. Chandler for Pulmonology. The patient has had thoracentesis done with around 200 mL of red-tinged fluid removed. It was very proteinaceous. Further drainage could not be obtained due to thick fluid. He has had consultation with Dr. Quinteros for Cardiothoracic Surgery. The patient has had right thoracoscopy, thoracotomy with total pulmonary decortication for a multiloculated thick peeled cavity with removal of 1.5 L of pus within the cavity. The patient grew E. coli from the empyema fluid cultures. He was on IV antibiotics all through his stay here. The patient was in ICU the entire stay. The patient has had progressive decline in his functional status and went into respiratory failure. The patient's family did not want to pursue further aggressive measures due to history of small cell cancer with metastasis. They went in for a withdrawal of care on the in the afternoon. The patient was declared at 5:20 p.m. on the . His body will be released according to hospital policy. Job ID: [id number]
== END 2018-02-26 17:20 | disposition expired | DRG 853 ==
LOC: ERS 00:44 → ERHOLD 05:34 → 2NO 15:50 → CCU 02-23 14:49
PROVIDERS: ADMIT Internal Medicine; ATTEND Internal Medicine
PROC: 30233N1 Transfusion of Nonautologous Red Blood Cells into Peripheral Vein, Percutaneous Approach (ICD-10-PCS; 2018-02-20)
PROC: 30233R1 Transfusion of Nonautologous Platelets into Peripheral Vein, Percutaneous Approach (ICD-10-PCS; 2018-02-20)
PROC: 0W993ZZ Drainage of Right Pleural Cavity, Percutaneous Approach (ICD-10-PCS; 2018-02-20)
PROC: 0BNK0ZZ Release Right Lung, Open Approach (ICD-10-PCS; principal; 2018-02-23)
PROC: 0BJQ4ZZ Inspection of Pleura, Percutaneous Endoscopic Approach (ICD-10-PCS; 2018-02-23)
PROC: 3E033XZ Introduction of Vasopressor into Peripheral Vein, Percutaneous Approach (ICD-10-PCS; 2018-02-24)
PROC: 5A09357 Assistance with Respiratory Ventilation, Less than 24 Consecutive Hours, Continuous Positive Airway Pressure (ICD-10-PCS; 2018-02-26)
DX: A41.51 Sepsis due to Escherichia coli [E. coli] (principal); J86.9 Pyothorax without fistula; J96.21 Acute and chronic respiratory failure with hypoxia; J18.9 Pneumonia, unspecified organism; C7A.8 Other malignant neuroendocrine tumors; C7B.8 Other secondary neuroendocrine tumors; I47.1 Supraventricular tachycardia; J91.0 Malignant pleural effusion; Z16.30 Resistance to unspecified antimicrobial drugs; Z66 Do not resuscitate; Z51.5 Encounter for palliative care; I48.91 Unspecified atrial fibrillation; D75.89 Other specified diseases of blood and blood-forming organs; Z53.32 Thoracoscopic surgical procedure converted to open procedure; D64.81 Anemia due to antineoplastic chemotherapy; D69.59 Other secondary thrombocytopenia; Z85.3 Personal history of malignant neoplasm of breast; Z15.01 Genetic susceptibility to malignant neoplasm of breast; T45.1X5A Adverse effect of antineoplastic and immunosuppressive drugs, initial encounter; I10 Essential (primary) hypertension; E66.9 Obesity, unspecified; E78.5 Hyperlipidemia, unspecified; Z72.0 Tobacco use; Z68.33 Body mass index [BMI] 33.0-33.9, adult
CPT/HCPCS: 36415; 36430; 71045; 71275; 80048; 80053; 80202; 81003; 82150; 82533; 82805; 82945; 83605; 83615; 83690; 83735; 83880; 83986; 84157; 84478; 84484; 85025; 85060; 85379; 86850; 86900; 86901; 87040; 87070; 87077; 87086; 87116; 87186; 87205; 87206; 87804; 88112; 88305; 89051; 93005; 93010; 94640; 94660; 96365; 96367; 96375; J0670; J0692; J0696; J0744; J1100; J1642; J1644; J1940; J2001; J2060; J2185; J2270; J2405; J2704; J2920; J3010; J3370; J7050; J7620; P9016; P9035; P9045; P9047